=== PATIENT | female | born 1940 | race Caucasian/White ===

== ENCOUNTER 2017-09-17 18:00 | Emergency (ER) | payer OTHER ==
[~2017-09-17 18:00] MED LIST: AMLODIPINE10 MG PO; CYMBALTA60 MG PO; HYDROCHLOROTHIA1 TA2 PO; K-DUR 20MEQ TA20 MEQ PO; ZOCOR 40MG TAB40 MG PO
[2017-09-17] MEDS ORDERED: ROPINIROLE HCL1 MG PO (19:03)
[2017-09-17] MEDS ORDERED: ATORVASTATIN CA10 M1 PO (19:04)
[2017-09-17] MEDS ORDERED: DULOXETINE HCL60 MG PO (19:04)
[2017-09-17] MEDS ORDERED: POTASSIUM CHLO20 ME2 PO (19:04)
--- NOTE | 2017-09-17 19:04 | ED GENERAL ADULT ---
History of Present Illness General Chief Complaint: General Adult Stated Complaint: ?VASCULAR ISSUES PER PT Source: patient, family, old records Exam Limitations: no limitations Vital Signs & Intake/Output Vital Signs & Intake/Output Vital Signs Date Time Temp Pulse Resp B/P B/P Pulse O2 O2 Flow FiO2 Mean Ox Delivery Rate 09/172 97.0 55 16 190/70 97 Room Air 09/17 1825 98.5 62 20 174/76 94 Room Air Room Air Allergies Coded Allergies: Iodinated Contrast- Oral and IV Dye (Severe, RASH 09/17/17) diazepam (Severe, ANGIODEMA 09/17/17) meperidine (Severe, ANGIODEMA 09/17/17) Reconcile Medications Amlodipine Besylate 10 MG TABLET 1 TAB PO DAILY BP (Reported) Atorvastatin Calcium 10 MG TABLET 1 TAB PO DAILY CHOLESTEROL (Reported) Cholecalciferol (Vitamin D3) (Vitamin D) 1,000 UNIT TABLET 1 TAB PO DAILY SUPPLEMENT (Reported) Duloxetine HCl 60 MG CAPSULE.DR 1 CAP PO DAILY NERVE PAIN (Reported) Multiple Vitamin (Multivitamins) 1 EACH TABLET 1 TAB PO DAILY SUPPLEMENT ( Reported) Potassium Chloride 20 MEQ TAB.ER.PRT 1 TAB PO BID SUPPLEMENT (Reported) Ropinirole HCl 1 MG TABLET 1 TAB PO QPM RLS (Reported) Ubidecarenone (Co Q-10) (Unknown Strength) CAPSULE (Unknown Dose) PO DAILY SUPPLEMENT (Reported) Vitamin B Complex (Super B-50 Complex) 1 EACH CAPSULE 1 CAP PO DAILY SUPPLEMENT (Reported) Triage Note: PT TO TRIAGE WITH PAIN, REDDNESS AND BLISTERS TO RIGHT TOES. PT ALSO HAS CYANOSIS TO 2ND THE 3RD TOES. PT HAS A HX OF ARTRIAL OCCULSIONS WITH MULITPLE BYPASSESS AND FAILED BYPASSES Triage Nurses Notes Reviewed? yes Onset: Abrupt Duration: week(s): (1), changing over time, continues in ED, getting worse Timing: recent history Injury Environment: home Severity: moderate, severe Severity Numbers: 8 No Modifying Factors: none LMP (ages 10-50): post menopausal, unknown : No Patient currently breastfeeds: No HPI: 68-year-old female past medical history of hypertension, hyperlipidemia, peripheral vascular disease presents for evaluation of pain skin discoloration in her right foot. Patient states that she has had multiple bypass vascular surgery and angioplasties on the right lower extremity. She is scheduled to have another bypass on the ninth of this month however she reports she started noticing worsening pain and a purple discoloration and breakdown of her skin in her toes on the right foot. This is been gradually worsening over the past week. She called her vascular surgeon and was told to come in for evaluation. Patient denies any fever numbness tingling chest pain shortness of breath. No discharge. Symptoms are worse in the first 3 toes and dorsum of the foot. She is not anticoagulated but does take aspirin. (Carlos Mejía) Past History Travel History Traveled to [place] past 21 day No Medical History Any Pertinent Medical History? 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 No (Carlos Mejía) Review of Systems Review of Systems Constitutional: Reports: no symptoms. EENTM: Reports: no symptoms. Respiratory: Reports: no symptoms. Cardiovascular: Reports: no symptoms. GI: Reports: no symptoms. Genitourinary: Reports: no symptoms. Musculoskeletal: Reports: joint pain. Skin: Reports: change in skin color. Neurological/Psychological: Reports: no symptoms. Hematologic/Endocrine: Reports: no symptoms. Immunologic/Allergic: Reports: no symptoms. All Other Systems: Reviewed and Negative (Carlos Mejía) Physical Exam Physical Exam General Appearance: well developed/nourished, no apparent distress, alert, awake , thin Head: atraumatic, normal appearance Eyes: Bilateral: normal appearance, PERRL, EOMI. Ears, Nose, Throat: hearing grossly normal Neck: normal inspection, supple, full range of motion Respiratory: normal breath sounds, chest non-tender, no respiratory distress, lungs clear Cardiovascular: regular rate/rhythm, normal peripheral pulses Peripheral Pulses: 2+ radial (R), 2+ radial (L) Gastrointestinal: soft, non-tender Back: normal inspection, normal range of motion, no vertebral tenderness Extremities: normal range of motion, no edema, rt foot: There is a light purple discoloration of the skin of the 1st-3rd distal aspect of the toes.this area is tender to palpation there is some peeling of the skin of the toes. no erythema. the foot is cool to touch compared to the left. full rom intact. sensory supply intact. dp and pt pulses are not palpable. i was able to locate them by doppler Neurologic/Psych: no motor/sensory deficits, awake, alert, oriented x 3, normal gait Skin: intact, normal color, warm/dry Lymphatic: no anterior cervical gloria Core Measures ACS in differential dx? No CVA/TIA Diagnosis: No Sepsis Present: No Sepsis Focused Exam Completed? No (Yuniel HERRERA,Carlos) Progress Differential Diagnoses I considered the following diagnoses in my evaluation of the patient: [pvd, occulisuive crisis, osteomyelitis, cellulitis, venous stasis dermatitis] Plan of Care: Orders Procedure Date/time Status BLOOD CULTURE 09/18 1831 Active TROPONIN LEVEL 09/18 1831 Complete LACTIC ACID 09/17 183 Complete HIGH SENSITIVITY CRP 09/17 183 Complete WESTERGREN SED RATE 09/17 183 Complete COMPREHENSIVE METABOLIC PANEL 09/17 183 Complete CBC WITHOUT DIFFERENTIAL 09/18 1831 Complete EKG 09/18 1831 Active Laboratory Tests 09/17/172131: Lactic Acid Cancelled 09/17/172048: Anion Gap 11, Estimated GFR > 60, BUN/Creatinine Ratio 24.3, Glucose 93, Lactic Acid 1.2, Calcium 10.2, Total Bilirubin 0.7, AST 34, ALT 25, Alkaline Phosphatase 69, Troponin I < 0.01, C-React Prot High Sens 2.4, Total Protein 8.2 , Albumin 4.6, Globulin 3.6, Albumin/Globulin Ratio 1.3 09/17/171923: CBC w Diff NO MAN DIFF REQ, RBC 4.71, MCV 89.2, MCH 30.0, MCHC 33.7, RDW 13.7, MPV 9.8, Gran % 60.1, Lymphocytes % 26.0, Monocytes % 9.8 H, Eosinophils % 3.4, Basophils % 0.7, Absolute Granulocytes 4.1, Absolute Lymphocytes 1.8, Absolute Monocytes 0.7 H, Absolute Eosinophils 0.2, Absolute Basophils 0, ESR Westergren 7 09/17/171831: Urine Color Cancelled, Urine Clarity Cancelled, Urine pH Cancelled, Ur Specific [place] Cancelled, Urine Protein Cancelled, Urine Ketones Cancelled, Urine Nitrite Cancelled, Urine Bilirubin Cancelled, Urine Urobilinogen Cancelled, Ur Leukocyte Esterase Cancelled, Ur Microscopic Cancelled, Urine Hemoglobin Cancelled, Urine Glucose Cancelled Microbiology 09/17 2048 BLOOD: Blood Culture - RES 09/18 1831 BLOOD: Blood Culture - CAN Cancelled: NOT REC'D IN LAB - PATIENT DEPARTED ER Patient seen and evaluated. She is reporting pain and discoloration in the distal aspect of her right foot and toes. She has a history of peripheral vascular disease she supposed to have a bypass on the ninth of this month. Pulses were not able to be located by Doppler. Patient does have pain to palpation in the toes and with walking however this is well controlled with Percocet. Spoke with Dr. Rios from vascular he recommended having the surgical PA come down to evaluate the patient. After evaluation surgical PA and vascular surgery felt that there was no signs of an occlusive crisis. They recommended continuing aspirin and patient was started on Xarelto. She will follow up with vascular tomorrow at 9 AM. Adhesions as directed. Discussed return precautions in detail. Case discussed with Dr. casas he agrees. Initial ED EKG: sinus rhythm rate 51, probable left atrial abn, probable lvh (Carlos Mejía) Departure Departure Disposition: HOME OR SELF CARE Condition: Stable Clinical Impression Primary Impression: Peripheral vascular disease Referrals: Kwong ,Reinier Forman (PCP/Family) Additional Instructions: Follow-up tomorrow at 9 AM with YOUr vascular surgeon. Monitor symptoms return with any concerns. Departure Forms: Customer Survey General Discharge Information (Carlos Mejía) PA/VERSE WRITER Co-Sign Statement Statement: ED Attending supervision documentation- [] I saw and evaluated the patient. I have also reviewed all the pertinent lab results and diagnostic results. I agree with the findings and the plan of care as documented in the PA's/VERSE WRITER's documentation. [x] I have reviewed the ED Record and agree with the PA's/VERSE WRITER's documentation. [] Additions or exceptions (if any) to the PAs/VERSE WRITER's note and plan are summarized below: [] (Maggi PFEIFFER,Jose Torres) Critical Care Note Critical Care Note Critical Care Time: non-applicable (Carlos Mejía)
[2017-09-17] MEDS ORDERED: AMLODIPINE BESY10 M1 PO (19:06)
[2017-09-17] MEDS ORDERED: CO Q-10300 MG PO (19:06)
[2017-09-17] MEDS ORDERED: MULTIVITAMINS1 EAC9 PO (19:06)
[2017-09-17] MEDS ORDERED: SUPER B-50 COM1 EACH PO (19:07)
[2017-09-17] MEDS ORDERED: VITAMIN D1000 UNIT PO (19:07)
[2017-09-17 19:31] LABS: ABSOLUTE BASOPHIL COUNT 0 /CUMM (0.0-0.2); ABSOLUTE EOSINOPHIL COUNT 0.2 /CUMM (0.0-0.7); ABSOLUTE GRANULOCYTE CT 4.1 /CUMM (1.4-6.5); ABSOLUTE LYMPH COUNT 1.8 /CUMM (1.2-3.4); ABSOLUTE MONOCYTE COUNT 0.7 /CUMM (0.10-0.60); BASOPHIL % 0.7 % (0.0-2.0); EOSINOPHIL % 3.4 % (0-5); GRANULOCYTE % 60.1 % (42.2-75.2); MEAN CORPUSCULAR HGB CONC 33.7 G/DL (33.0-37.0); MEAN CORPUSCULAR VOLUME 89.2 FL (81.0-99.0); MEAN PLATELET VOLUME 9.8 FL (7.4-10.4); PLATELET COUNT 193 /CUMM (130-400); RBC DISTRIBUTION WIDTH 13.7 % (11.5-14.5); RED BLOOD CELL CT 4.71 /CUMM (4.20-5.40); WHITE BLOOD CELL COUNT 6.9 /CUMM (4.8-10.8)
[2017-09-17 21:52] VITALS: BP 190/70
[2017-09-22] MEDS ORDERED: ST. JOSEPH ASPI81 M1 PO (10:05)
[2017-09-22] MEDS ORDERED: PERCOCET 5-3251 EACH PO (10:06)
== END 2017-09-17 22:12 ==
LOC: ERH 18:00
PROVIDERS: Physician Assistant Medical
DX: I73.9 Peripheral vascular disease, unspecified (principal)
CPT/HCPCS: 87040; 93005; 93010; J3490

== ENCOUNTER 2017-09-25 01:43 | Inpatient (IN) | payer OTHER ==
[~2017-09-25] VITALS: Ht 162.6 cm; Wt 44.9 kg
[~2017-09-25 01:43] MED LIST changes: +AMLODIPINE BESY10 M1 PO; +ATORVASTATIN CA10 M1 PO; +CO Q-10300 MG PO; +DULOXETINE HCL60 MG PO; +MULTIVITAMINS1 EAC9 PO; +PERCOCET 5-3251 EACH PO; +POTASSIUM CHLO20 ME2 PO; +ROPINIROLE HCL1 MG PO; +ST. JOSEPH ASPI81 M1 PO; +SUPER B-50 COM1 EACH PO; +VITAMIN D1000 UNIT PO
--- NOTE | 2017-09-25 14:44 | Operative Report ---
Operative/Inv Procedure Report Surgery Date: 09/25/17 Name of Procedure: Right femoral to popliteal bypass with PTFE Pre-Operative Diagnosis: right leg critical limb ischemia Post-Operative Diagnosis: same Estimated Blood Loss: 50ml to 100ml Surgeon/Ethics Manager: Geovanni PFEIFFER,Dar Ethics Manager Gabriel PFEIFFER, Shalom Anesthesia: general endotracheal tube Specimens: none Complications: none Condition: stable, extubated, transferred to pacu Operative Indication: The patient is a 76-year-old active smoker with a history of a previous aorto bifemoral bypass and subsequent right fem-pop bypass with vein. The patient presented to the office with a few weeks of right leg discomfort which progressed to severe pain. She had a CTA that demonstrated an occluded right fem -pop bypass. We subsequently proceeded to perform a diagnostic angiogram to identify an appropriate target for bypass she had vein mapping but the vein in her left leg appeared to be small and the vein in the right leg had already been harvested. It appeared that her distal femoral popliteal artery was patent with runoff via the AT and peroneal artery, We therefore planned to explore the popliteal artery as a target and possibly go to tibial if it was not suitable. I explain the patient risk benefits alternatives surgery informed consent was obtained the chart given the patient had ischemic rest pain and impending tissue loss we felt that a bypass is appropriate. Operative/Procedure Note Note: The patient was brought to the operating room a time-out was done to verify the patient's name MRN and date of . Once this was verified she was placed under general anesthesia in a supine position. They placed a radial A-line and multiple large bore IVs. A Chacko catheter was also placed. Prior to proceeding with the operation we used the ultrasound to look at the left saphenous vein to see if that would be a possibility to use as a bypass conduit. However the vein appeared to be quite small and therefore we felt it would not be suitable is a for a bypass. We therefore proceeded to prep and drape the bilateral groins and right leg circumferentially in a sterile fashion. Prophylactic antibiotics were given prior to skin incision. We then marked out her previous right groin and below the knee popliteal incision using a marking pen. Dr. Rios assisted me with the entirety of the case as there was no suitable PA or resident with adequate experience to assist me. We simultaneously used a 10 blade scalpel tomake a vertical incision over the femoral artery and then the below-knee popliteal scar using a 10 blade scalpel. We then use, electrocautery to dissect down through the subcutaneous tissues. In the groin area we tied off any crossing veins or lymphatic vessels using ties. We identified a previous aortobifem limb and circumferentially dissected this free getting proximal and distal control. In the below the knee popliteal incision we incised the muscular fascia and then identified the popliteal neurovascular bundle. There was some scar tissue and the vein was adherent to the artery. We then circumferentially dissected free the popliteal artery as proximally as possible and continued the dissection distally to where the artery branched into the tibial peroneal trunk and the AT artery. We then gained control of these 2 vessels with vessel loops and got proximal control of the popliteal artery. At this time we brought a 6 mm probe patent graft into the field using a tunneler we tunneled subcutaneously for the below the popliteal incision all the way to the groin incision. We then passed the graft through the tunneler and took care to make sure that it was not twisted. At this time the patient was fully heparinized. Once the heparin had 3 minutes to circulate we proceeded to clamp proximally and distally. We used an 11 blade scalpel to perform arteriotomies in the limb of the aortibifem bypass and the below the knee popliteal artery. The arteriotomies were extended with Oneill scissors. In the popliteal artery we did encounter a plaque extending to the tibial peroneal trunk and this was endarterectomized and removed. At this time there was good back bleeding from both the AT artery and the tibial peroneal trunk. We were satisfied that this would be an appropriate target for the bypass. At this time we simultaneously perform the proximal and distal anastomosis using 2 x 5-0 Prolenes running in running continuous fashion for the proximal anastomosis and we used 2x 6-0 Prolenes in the usual running continuous fashion for the distal anastomosis. Prior to placing the final stitches in the popliteal anastamosis we flushed the bypass and back bed and flushed the anastamosis. The final sitches were then palced and tied. We then removed the clamps and there was some additional areas that were bleeding which required some additional Prolene stitches. At this time there was a very good signal in the distal bypass and the outflow vessels. We then proceede to reverse the patient with protamine and used Gelfoam and a few additional stitches in order to get hemostasis. Once we had good hemostasis we then proceeded to irrigate both the proximal and distal wound with saline.We then proceeded to close the deep layers using 2-0 Prolene the subcutaneous layers using 3-0 Vicryl and closed the skin with a with skin zak. At this time a pravena wound Vac was placed over the groin incision. And a Telfa and Tegaderm was placed in the below-knee incision. The patient was extubated and transfered back to the pacu in stable condition having experienced no untoward events.
[2017-09-25 16:00] VITALS: BP 110/58
--- NOTE | 2017-09-25 16:28 | PN- Vascular Surgery ---
Subjective Subjective: POST OP CHECK s/p right redo femoral to below knee popliteal bypass with dacron graft. Resting flat in bed. Daughter at bedside. No N/V, F/C, CP/SOB. Voiding via jackson catheter. Yet to have clear liquids, hungry for food. Objective Vital Signs and I&Os Vital Signs Date Time Temp Pulse Resp B/P B/P Pulse O2 O2 Flow FiO2 Mean Ox Delivery Rate 09/25 1549 99 Nasal 3.0L Cannula Intake & Output 09/25 1600 09/25 0000 09/24 1600 09/24 0000 Intake Total Output Total Balance Patient 99 lb 15.99 oz Weight Weight Reported by Patient Measurement Method Physical Exam: Gen: AAOx3 in NAD Cor: S1+S2+ Bradycardic. Lungs: CTA yeni Abd: soft, NT, ND, +Bs x4 Ext: right groin prevena functioning, no air leak present, holding suction. No surrounding ecchymosis to suggest hematoma. Groin non tender to palpation. Right popliteal incisional dressing C/D/I. palpable DP pulse. Biphasic PT signal. Foot hyperemic, tender on 3rd digit. Dorsiflexion/plantar flexion 5/5. Sensation grossly intact. Current Medications: Current Medications Sig/Rocael Start time Last Medication Dose Route Stop Time Status Admin Amlodipine Besylate 10 MG DAILY 09/26 1000 AC PO Aspirin Buffered 81 MG DAILY 09/26 1000 AC PO Atorvastatin Calcium 10 MG 1700 09/26 1700 AC PO Cefazolin Sodium 2 GM Q8H 09/25 1430 AC N/A 1 UNIT IV 09/25 2258 Cholecalciferol 1,000 IU DAILY 09/26 1000 AC PO Docusate Sodium 100 MG BID 09/25 2200 AC PO Duloxetine HCl 60 MG DAILY 09/26 1000 AC PO Fentanyl Citrate 200 MCG .STK-MED ONE 09/25 701 DC IM 09/25 702 Heparin Sodium 5,000 UNIT Q8 09/25 1623 UNVr (Porcine) SC Midazolam HCl 2 MG .STK-MED ONE 09/25 701 DC IM 09/25 702 Morphine Sulfate 2 MG Q4P PRN 09/25 1545 AC IV Multivitamins 1 TAB DAILY 09/26 1000 AC Therapeutic PO Oxycodone HCl 5 MG Q4 HRS NEEDED PRN 09/25 1545 AC PO Oxycodone HCl 10 MG Q4 HRS NEEDED PRN 09/25 1545 AC PO Polyethylene Glycol 17 GM DAILY 09/26 1000 AC PO Potassium Chloride 20 MEQ BID 09/25 2199 AC PO Ropinirole HCl 1 MG QPM 09/25 2199 AC PO Sodium Chloride 1,000 ML Q13H 09/25 1545 AC IV Thrombin 5,000 UNITS .STK-MED ONE 09/25 1306 [facility] 09/25 1307 Assessment/Plan Assessment/Plan A: s/p right redo femoral to below knee popliteal bypass with graft; AVSS Plan: q1h neurovascular checks Regular diet. Bedrest overnight. PT eval in am. No chair sitting tomorrow (POD #1) to avoid bending at knee joint. Pain control to continue. D/C minal in am. F/U am labwork. Continue home medications. ASA to continue. Likely will initiate heparin gtt tomorrow pending discussion with Dr. Galarza. Core Measures Venous Thromboembolism VTE Risk Factors Surgery No Mechanical VTE Prophylaxis d/t N/A MechProphylax Ordered No VTE Pharm Prophylaxis d/t NA PharmProphylax ordered
[2017-09-26] VITALS: BP 124/60
[2017-09-26 03:52] LABS: ABSOLUTE BASOPHIL COUNT 0 /CUMM (0.0-0.2); ABSOLUTE EOSINOPHIL COUNT 0 /CUMM (0.0-0.7); ABSOLUTE GRANULOCYTE CT 7.1 /CUMM (1.4-6.5); ABSOLUTE LYMPH COUNT 1.8 /CUMM (1.2-3.4); ABSOLUTE MONOCYTE COUNT 1.3 /CUMM (0.10-0.60); BASOPHIL % 0.2 % (0.0-2.0); EOSINOPHIL % 0.1 % (0-5); MEAN CORPUSCULAR HGB 30.6 PG (27.0-31.0); MEAN CORPUSCULAR HGB CONC 34.3 G/DL (33.0-37.0); MEAN CORPUSCULAR VOLUME 89.3 FL (81.0-99.0); MEAN PLATELET VOLUME 9.8 FL (7.4-10.4); PLATELET COUNT 164 /CUMM (130-400); RBC DISTRIBUTION WIDTH 13.6 % (11.5-14.5); RED BLOOD CELL CT 3.24 /CUMM (4.20-5.40); WHITE BLOOD CELL COUNT 10.3 /CUMM (4.8-10.8)
[2017-09-26 03:59] LABS: PTT 35 SEC (25-37)
--- NOTE | 2017-09-26 06:44 | PN- Vascular Surgery ---
Subjective Subjective: feeling ok, some pain at incisions and in r foot overnight. provena beeping overnihgt- now holding good suction. no cp/sob. good uo. no oob Objective Vital Signs and I&Os Vital Signs Date Time Temp Pulse Resp B/P B/P Pulse O2 O2 Flow FiO2 Mean Ox Delivery Rate 09/26 0000 98.8 60 20 124/60 96 Room Air Room Air 09/25 2000 100 Nasal 2.0L Cannula 09/25 1600 97.6 59 25 110/58 100 Nasal 2.0L Cannula 09/25 1549 99 Nasal 3.0L Cannula Intake & Output 09/26 0809/26 0000 09/25 1600 09/25 0800 09/25 0000 09/24 1600 Intake Total 656 1090 Output Total 450 160 Balance 206 930 Intake, IV 576 490 Intake, Oral 80 600 Number 0 0 Bowel Movements Output, Urine 450 160 Patient 99 lb 15.99 oz Weight Weight Reported by Patient Measurement Method Physical Exam: gen- nad card-s1s2 rrr pulm-ctab abd- soft nt ext- r groin w provena vac in place to good suction. rle incisions dressed- cdi , ttp at incisions. palpable r dp. dopperable left dp and pt. alp on lle, calves soft bl. Current Medications: Current Medications Sig/Rocael Start time Last Medication Dose Route Stop Time Status Admin Amlodipine Besylate 10 MG DAILY 09/26 1000 AC PO Aspirin 81 MG DAILY 09/25 1645 AC 09/25 PO 1840 Aspirin Buffered 81 MG DAILY 09/26 1000 CAN PO Atorvastatin Calcium 10 MG 1700 09/26 1700 AC PO Cefazolin Sodium 2 GM Q8H 09/25 1430 DC 09/25 N/A 1 UNIT IV 09/25 2259 2208 Cholecalciferol 1,000 IU DAILY 09/26 1000 AC PO Dextrose 1 SYR ONE ONE 09/26 0400 CAN IV 09/26 0401 Docusate Sodium 100 MG BID 09/25 2200 AC 09/25 PO 2208 Duloxetine HCl 60 MG DAILY 09/26 1000 AC PO Fentanyl Citrate 200 MCG .STK-MED ONE 09/25 701 DC IM 09/25 07 Heparin Sodium 5,000 UNIT Q8 09/25 1623 AC 09/26 (Porcine) SC 0553 Midazolam HCl 2 MG .STK-MED ONE 09/25 701 DC IM 09/25 702 Morphine Sulfate 2 MG Q4P PRN 09/25 1545 AC 09/26 IV 0406 Multivitamins 1 TAB DAILY 09/26 1000 AC Therapeutic PO Oxycodone HCl 5 MG Q4 HRS NEEDED PRN 09/25 154 AC 09/26 PO 0008 Oxycodone HCl 10 MG Q4 HRS NEEDED PRN 09/25 1545 AC PO Polyethylene Glycol 17 GM DAILY 09/26 1000 AC PO Potassium Chloride 20 MEQ BID 09/25 2199 AC 09/25 PO 2208 Ropinirole HCl 1 MG QPM 09/25 2199 AC 09/25 PO 1840 Sodium Chloride 1,000 ML Q13H 09/25 154 DC 09/26 IV 0407 Thrombin 5,000 UNITS .STK-MED ONE 09/25 130 [facility] 09/25 1307 Results Last 48 Hours of Labs: Laboratory Tests 09/26 0330 Chemistry Sodium (137 - 145 mmol/L) 138 Potassium (3.5 - 5.1 mmol/L) 3.4 L Chloride (98 - 107 mmol/L) 105 Carbon Dioxide (22 - 30 mmol/L) 25 Anion Gap (5 - 16) 8 BUN (7 - 17 mg/dL) 19 H Creatinine (0.5 - 1.0 mg/dL) 0.9 Estimated GFR (>60 ml/min) > 60 BUN/Creatinine Ratio (7 - 25 %) 21.1 Phosphorus (2.5 - 4.5 mg/dL) 3.7 Magnesium (1.6 - 2.3 mg/dL) 1.7 Coagulation APTT (25 - 37 SEC) 35 Hematology CBC w Diff NO MAN DIFF REQ WBC (4.8 - 10.8 /CUMM) 10.3 RBC (4.20 - 5.40 /CUMM) 3.24 L Hgb (12.0 - 16.0 G/DL) 9.9 L Hct (37 - 47 %) 29.0 L MCV (81.0 - 99.0 FL) 89.3 MCH (27.0 - 31.0 PG) 30.6 MCHC (33.0 - 37.0 G/DL) 34.3 RDW (11.5 - 14.5 %) 13.6 Plt Count (130 - 400 /CUMM) 164 MPV (7.4 - 10.4 FL) 9.8 Gran % (42.2 - 75.2 %) 69.0 Lymphocytes % (20.5 - 51.1 %) 17.8 L Monocytes % (1.7 - 9.3 %) 12.9 H Eosinophils % (0 - 5 %) 0.1 Basophils % (0.0 - 2.0 %) 0.2 Absolute Granulocytes (1.4 - 6.5 /CUMM) 7.1 H Absolute Lymphocytes (1.2 - 3.4 /CUMM) 1.8 Absolute Monocytes (0.10 - 0.60 /CUMM) 1.3 H Absolute Eosinophils (0.0 - 0.7 /CUMM) 0 Absolute Basophils (0.0 - 0.2 /CUMM) 0 Assessment/Plan Assessment/Plan A- POD0 sp redo R fem-pop bypass w graft, stable with palpable right dp and warm foot with appropriate postoperative pain, with borderline hypoK and hypoMg, otherwise stable. P- ok for oob this am. No flexion of R knee (sitting, etc) dc a-line dc jackson replete K, Mg prn pain meds diet as tolerated asa daily ?hep gtt today ?out of icu today will dw Dr. Galarza Core Measures Venous Thromboembolism VTE Risk Factors Surgery No Mechanical VTE Prophylaxis d/t N/A MechProphylax Ordered No VTE Pharm Prophylaxis d/t NA PharmProphylax ordered
[2017-09-26 08:00] VITALS: BP 138/52
[2017-09-26 16:00] VITALS: BP 130/62
--- NOTE | 2017-09-26 17:09 | PN- Vascular Surgery ---
Surgical Brief Attending Note Brief Attending Note: VASCULAR ATTENDING NOTE: Pt. seen and examined POD #1 s/p fem.-pop. bypass. She is complaining of some lower extremity calf pain but states her foot feels improved. She denies any rest pain at this time. PE: Afebrile vital signs stable Ext: Right foot is warm, no evidence of ischemia, it is well perfused. Patient does have pain on palpation of the calf. A/P Continue medical care Continue heparin at the current rate Would follow CPKs due to calf tenderness
[2017-09-26 23:00] VITALS: BP 130/54
[2017-09-27 06:17] LABS: ABSOLUTE BASOPHIL COUNT 0 /CUMM (0.0-0.2); ABSOLUTE EOSINOPHIL COUNT 0 /CUMM (0.0-0.7); ABSOLUTE GRANULOCYTE CT 9.8 /CUMM (1.4-6.5); ABSOLUTE LYMPH COUNT 1.7 /CUMM (1.2-3.4); ABSOLUTE MONOCYTE COUNT 1.8 /CUMM (0.10-0.60); BASOPHIL % 0.2 % (0.0-2.0); EOSINOPHIL % 0.3 % (0-5); GRANULOCYTE % 73.7 % (42.2-75.2); HEMATOCRIT 32.2 % (37-47); MEAN CORPUSCULAR HGB 29.6 PG (27.0-31.0); MEAN CORPUSCULAR HGB CONC 32.9 G/DL (33.0-37.0); MEAN PLATELET VOLUME 10.6 FL (7.4-10.4); PLATELET COUNT 153 /CUMM (130-400); RBC DISTRIBUTION WIDTH 13.5 % (11.5-14.5); RED BLOOD CELL CT 3.58 /CUMM (4.20-5.40); WHITE BLOOD CELL COUNT 13.4 /CUMM (4.8-10.8)
--- NOTE | 2017-09-27 07:56 | PN- Vascular Surgery ---
Dwayne Conde 09/27/17 0746: Subjective Subjective: Reports pain in her right calf. Yesterday, patient was straightcathed 350 and then voided on her own 150 cc overnight. She offers no other complaints. Objective Vital Signs and I&Os Vital Signs Date Time Temp Pulse Resp B/P B/P Pulse O2 O2 Flow FiO2 Mean Ox Delivery Rate 09/27 0000 96 Room Air 09/26 2300 97.7 78 24 130/54 96 Room Air 09/26 1600 99.0 67 20 130/62 97 Room Air 09/26 0928 63 138/52 09/26 0800 98.7 60 28 138/52 98 Room Air 09/26 0800 98 Room Air Intake & Output 09/27 0809/27 0000 09/26 1600 09/26 0800 09/26 0000 09/25 1600 Intake Total 174 328 006 879 2956 Output Total 150 350 0 450 160 Balance 24 -22 410 206 930 Intake, IV 74 128 170 576 490 Intake, Oral 100 200 240 80 600 Number 0 0 0 0 0 Bowel Movements Output, Urine 150 350 0 450 160 Patient 99 lb 15.99 oz Weight Weight Reported by Patient Measurement Method Physical Exam: Gen - nad Cardiac -S1S2 rrr Lungs -CTAB Abd- soft, nt/nd Ext- R groin w/ provena vac in place to good suction, RLE dressing with scant sanguineous drainage in midline, mild edema, appropriately tender alexandr- incisionally, palpable right dp/pt, alp on LLE Current Medications: Current Medications Sig/Rocael Start time Last Medication Dose Route Stop Time Status Admin Amlodipine Besylate 10 MG DAILY 09/26 1000 AC 09/26 PO 0928 Aspirin 81 MG DAILY 09/25 1645 AC 09/26 PO 09 Atorvastatin Calcium 10 MG 1700 09/26 1700 AC 09/26 PO 1619 Cholecalciferol 1,000 IU DAILY 09/26 1000 AC 09/26 PO 0928 Cyclobenzaprine HCl 5 MG TIDPRN 09/26 1800 AC 09/26 PO 1905 Docusate Sodium 100 MG BID 09/25 2200 AC 09/26 PO 223 Duloxetine HCl 60 MG DAILY 09/26 1000 AC 09/26 PO 0928 Heparin Sodium 25,000 UNIT Q24H 09/26 0900 AC 09/26 (Porcine) IV 0924 Sodium Chloride 500 ML Heparin Sodium 25,000 UNIT Q24H 09/26 0830 DC (Porcine) IV Sodium Chloride 500 ML Heparin Sodium 5,000 UNIT Q8 09/25 1623 DC 09/26 (Porcine) SC 0553 Magnesium Sulfate 1 GM ONCE ONE 09/26 0645 DC 09/26 Dextrose/Water 100 ML IV 09/26 1044 0759 Morphine Sulfate 2 MG Q4P PRN 09/25 1545 AC 09/26 IV 2040 Multivitamins 1 TAB DAILY 09/26 1000 AC 09/26 Therapeutic PO 0928 Oxycodone HCl 5 MG Q4 HRS NEEDED PRN 09/25 1545 AC 09/26 PO 1619 Oxycodone HCl 10 MG Q4 HRS NEEDED PRN 09/25 1545 AC 09/27 PO 0557 Polyethylene Glycol 17 GM DAILY 09/26 1000 AC 09/26 PO 0928 Potassium Chloride 20 MEQ BID 09/25 2200 AC 09/26 PO 2234 Ropinirole HCl 1 MG QPM 09/25 2200 AC 09/26 PO 2235 Sodium Chloride 500 ML BOLUS ONE 09/26 1530 DC 09/26 IV 09/26 1629 1618 Sodium Chloride 1,000 ML Q13H 09/26 1500 DC 09/26 IV 1500 Results Last 48 Hours of Labs: Laboratory Tests 09/27 09/26 0534 1050 Chemistry Sodium (137 - 145 mmol/L) 133 L Potassium (3.5 - 5.1 mmol/L) 3.4 L Chloride (98 - 107 mmol/L) 101 Carbon Dioxide (22 - 30 mmol/L) 26 Anion Gap (5 - 16) 5 BUN (7 - 17 mg/dL) 12 Creatinine (0.5 - 1.0 mg/dL) 0.6 Estimated GFR (>60 ml/min) > 60 BUN/Creatinine Ratio (7 - 25 %) 20.0 Phosphorus (2.5 - 4.5 mg/dL) 2.5 Magnesium (1.6 - 2.3 mg/dL) 1.6 Creatine Kinase (30 - 135 U/L) Pending 134 Hematology CBC w Diff NO MAN DIFF REQ WBC (4.8 - 10.8 /CUMM) 13.4 H RBC (4.20 - 5.40 /CUMM) 3.58 L Hgb (12.0 - 16.0 G/DL) 10.6 L Hct (37 - 47 %) 32.2 L MCV (81.0 - 99.0 FL) 90.0 MCH (27.0 - 31.0 PG) 29.6 MCHC (33.0 - 37.0 G/DL) 32.9 L RDW (11.5 - 14.5 %) 13.5 Plt Count (130 - 400 /CUMM) 153 MPV (7.4 - 10.4 FL) 10.6 H Gran % (42.2 - 75.2 %) 73.7 Lymphocytes % (20.5 - 51.1 %) 12.4 L Monocytes % (1.7 - 9.3 %) 13.4 H Eosinophils % (0 - 5 %) 0.3 Basophils % (0.0 - 2.0 %) 0.2 Absolute Granulocytes (1.4 - 6.5 /CUMM) 9.8 H Absolute Lymphocytes (1.2 - 3.4 /CUMM) 1.7 Absolute Monocytes (0.10 - 0.60 /CUMM) 1.8 H Absolute Eosinophils (0.0 - 0.7 /CUMM) 0 Absolute Basophils (0.0 - 0.2 /CUMM) 0 09/26 0330 Chemistry Sodium (137 - 145 mmol/L) 138 Potassium (3.5 - 5.1 mmol/L) 3.4 L Chloride (98 - 107 mmol/L) 105 Carbon Dioxide (22 - 30 mmol/L) 25 Anion Gap (5 - 16) 8 BUN (7 - 17 mg/dL) 19 H Creatinine (0.5 - 1.0 mg/dL) 0.9 Estimated GFR (>60 ml/min) > 60 BUN/Creatinine Ratio (7 - 25 %) 21.1 Phosphorus (2.5 - 4.5 mg/dL) 3.7 Magnesium (1.6 - 2.3 mg/dL) 1.7 Creatine Kinase (30 - 135 U/L) 140 H Coagulation APTT (25 - 37 SEC) 35 Hematology CBC w Diff NO MAN DIFF REQ WBC (4.8 - 10.8 /CUMM) 10.3 RBC (4.20 - 5.40 /CUMM) 3.24 L Hgb (12.0 - 16.0 G/DL) 9.9 L Hct (37 - 47 %) 29.0 L MCV (81.0 - 99.0 FL) 89.3 MCH (27.0 - 31.0 PG) 30.6 MCHC (33.0 - 37.0 G/DL) 34.3 RDW (11.5 - 14.5 %) 13.6 Plt Count (130 - 400 /CUMM) 164 MPV (7.4 - 10.4 FL) 9.8 Gran % (42.2 - 75.2 %) 69.0 Lymphocytes % (20.5 - 51.1 %) 17.8 L Monocytes % (1.7 - 9.3 %) 12.9 H Eosinophils % (0 - 5 %) 0.1 Basophils % (0.0 - 2.0 %) 0.2 Absolute Granulocytes (1.4 - 6.5 /CUMM) 7.1 H Absolute Lymphocytes (1.2 - 3.4 /CUMM) 1.8 Absolute Monocytes (0.10 - 0.60 /CUMM) 1.3 H Absolute Eosinophils (0.0 - 0.7 /CUMM) 0 Absolute Basophils (0.0 - 0.2 /CUMM) 0 Assessment/Plan Assessment/Plan 76 F POD 2 s/p redo R fem-pop bypass w/ graft, stable with palpable right dp Transfer out of ICU Pain meds prn Asa daily Cont K repletion Cont hep gtt CPK normalized Cardiac diet Monitor I&Os Encourge oob ambulation - no flexion of R knee Will dw Dr. Galarza Core Measures Venous Thromboembolism VTE Risk Factors Surgery No Mechanical VTE Prophylaxis d/t N/A MechProphylax Ordered No VTE Pharm Prophylaxis d/t NA PharmProphylax ordered Dar Galarza MD 09/27/17 1102: Attending MD Review Statement Attending Statement Attending Statement: examined this patient, discuss w/resident/PA/[employer] Attending Assessment/Plan: pt seen and examined. foot wwp. pt no longer complaining of rest pain and color significantly improved. Very strong dp/pt signals. labs reviewed. vss. Today pt oob/ ambulate. can sit in chair tomorrow. therapeutic heparin gtt. will plan to dc on xarelto . wound vac to stay in place 1 week total.
[2017-09-27 08:00] VITALS: BP 134/70
[2017-09-27 16:00] VITALS: BP 138/64
[2017-09-27 23:24] VITALS: BP 152/68
[2017-09-28 08:00] VITALS: BP 150/70
--- NOTE | 2017-09-28 08:06 | PN- Vascular Surgery ---
Subjective Subjective: Patient states she feels fine. She reports muscle spasms in her legs are controlled with valium. She states she has not had a BM since surgery and is requesting a fleet enema. She offers no other complaints. Objective Vital Signs and I&Os Vital Signs Date Time Temp Pulse Resp B/P B/P Pulse O2 O2 Flow FiO2 Mean Ox Delivery Rate 09/27 2324 99.0 71 16 152/68 95 Room Air Room Air 09/27 1600 98.2 79 20 138/64 94 Room Air 09/27 1342 Room Air Room Air 09/27 1336 Room Air Room Air 09/27 0924 74 134/70 09/27 0800 99.3 74 20 134/70 93 Room Air Intake & Output 09/28 0809/28 0000 09/27 1600 09/27 0800 09/27 0000 09/26 1600 Intake Total 160 360 78 174 328 410 Output Total 0 450 150 350 0 Balance 160 360 -372 24 -22 410 Intake, IV 80 300 78 74 128 170 Intake, Oral 80 60 100 200 240 Number 0 0 0 0 Bowel Movements Output, Urine 0 450 150 350 0 Patient 99 lb 0.01 oz Weight Physical Exam: Gen - nad Cardiac -S1S2 rrr Lungs -CTAB Abd- soft, nt/nd Ext- R groin w/ provena vac in place to good suction, knee immoblizer in place, RLE incision closed with zak, healing well with so signs of infection, redressed with gauze and tegaderm, appropriately tender alexandr-incisionally, mild edema of right foot with dp/pt doppler signals, alp on LLE, no edema or calf tenderness Current Medications: Current Medications Sig/Rocael Start time Last Medication Dose Route Stop Time Status Admin Amlodipine Besylate 10 MG DAILY 09/26 1000 AC 09/27 PO 0924 Aspirin 81 MG DAILY 09/25 1645 AC 09/27 PO 0924 Atorvastatin Calcium 10 MG 1700 09/26 1700 AC 09/27 PO 165 Cholecalciferol 1,000 IU DAILY 09/26 1000 AC 09/27 PO 09 Cyclobenzaprine HCl 5 MG TIDPRN 09/26 1800 AC 09/27 PO 212 Docusate Sodium 100 MG BID 09/25 2200 AC 09/27 PO 2122 Duloxetine HCl 60 MG DAILY 09/26 1000 AC 09/27 PO 0924 Heparin Sodium 25,000 UNIT Q24H 09/26 09 AC 09/27 (Porcine) IV 1704 Sodium Chloride 500 ML Morphine Sulfate 2 MG Q4P PRN 09/25 1545 AC 09/26 IV 2040 Multivitamins 1 TAB DAILY 09/26 1000 AC 09/27 Therapeutic PO 0924 Oxycodone HCl 5 MG Q4 HRS NEEDED PRN 09/25 1545 AC 09/27 PO 1803 Oxycodone HCl 10 MG Q4 HRS NEEDED PRN 09/25 1545 AC 09/27 PO 0557 Polyethylene Glycol 17 GM DAILY 09/26 1000 AC 09/27 PO 0923 Potassium Chloride 20 MEQ BID 09/25 2199 AC 09/27 PO 2122 Ropinirole HCl 1 MG QPM 09/25 2199 AC 09/27 PO 2121 Results Last 48 Hours of Labs: Laboratory Tests 09/27 09/26 0534 1050 Chemistry Sodium (137 - 145 mmol/L) 133 L Potassium (3.5 - 5.1 mmol/L) 3.4 L Chloride (98 - 107 mmol/L) 101 Carbon Dioxide (22 - 30 mmol/L) 26 Anion Gap (5 - 16) 5 BUN (7 - 17 mg/dL) 12 Creatinine (0.5 - 1.0 mg/dL) 0.6 Estimated GFR (>60 ml/min) > 60 BUN/Creatinine Ratio (7 - 25 %) 20.0 Phosphorus (2.5 - 4.5 mg/dL) 2.5 Magnesium (1.6 - 2.3 mg/dL) 1.6 Creatine Kinase (30 - 135 U/L) 117 134 Hematology CBC w Diff NO MAN DIFF REQ WBC (4.8 - 10.8 /CUMM) 13.4 H RBC (4.20 - 5.40 /CUMM) 3.58 L Hgb (12.0 - 16.0 G/DL) 10.6 L Hct (37 - 47 %) 32.2 L MCV (81.0 - 99.0 FL) 90.0 MCH (27.0 - 31.0 PG) 29.6 MCHC (33.0 - 37.0 G/DL) 32.9 L RDW (11.5 - 14.5 %) 13.5 Plt Count (130 - 400 /CUMM) 153 MPV (7.4 - 10.4 FL) 10.6 H Gran % (42.2 - 75.2 %) 73.7 Lymphocytes % (20.5 - 51.1 %) 12.4 L Monocytes % (1.7 - 9.3 %) 13.4 H Eosinophils % (0 - 5 %) 0.3 Basophils % (0.0 - 2.0 %) 0.2 Absolute Granulocytes (1.4 - 6.5 /CUMM) 9.8 H Absolute Lymphocytes (1.2 - 3.4 /CUMM) 1.7 Absolute Monocytes (0.10 - 0.60 /CUMM) 1.8 H Absolute Eosinophils (0.0 - 0.7 /CUMM) 0 Absolute Basophils (0.0 - 0.2 /CUMM) 0 Assessment/Plan Assessment/Plan 76 F POD 3 s/p redo R fem-pop bypass w/ graft, on heparin gtt, stable Transfer out of ICU Pain/muscle relaxants prn Asa daily Cont hep gtt, transition to xaretlo upon d/c Provena to stay in place one week total postop Cardiac diet Ambulate with PT, oob to chair Bowel regimen on board, will add fleet enema Anticipate d/c to STR F/u labs Will d/w Dr. Galarza Core Measures Venous Thromboembolism VTE Risk Factors Surgery No Mechanical VTE Prophylaxis d/t N/A MechProphylax Ordered No VTE Pharm Prophylaxis d/t NA PharmProphylax ordered
--- NOTE | 2017-09-28 08:16 | Surgical Discharge Summary ---
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 Who Do You Live With? Family Services at Home: None What is Your Primary Language? Nepalese Review of Systems: Refer to H&P Hospital Course Course Attending Physician: Dar Galarza MD Primary Care Physician: Reinier Kwong MD Hospital Course: Patient presented for an elective right femoral to popliteal bypass with PTFE on 09/25/[address] Galarza. Patient tolerated the procedure well and was transfered to the ICU in stable condition. She remained on a heparin drip which was transitioned to xarelto prior to discharge. At the time of discharge, patient's pain was well-controlled with oral analgesics, she was tolerating a diet and neurovascular intact. She was evaluated by PT, who recommended STR. She was discharged on POD #4 after having a bowel movement, with outpatient follow up with Dr. Galarza in 2 weeks. Allergies: Coded Allergies: Iodinated Contrast- Oral and IV Dye (Severe, RASH 09/17/17) diazepam (Severe, ANGIODEMA 09/17/17) meperidine (Severe, ANGIODEMA 09/17/17) Significant Procedures: Right femoral to popliteal bypass with PTFE on 09/25/17 Disposition Summary Disposition Principal Diagnosis: Right leg critical limb ischemia Additional Diagnosis: Same s/p right femoral to popliteal bypass with Dacron graft Discharge Disposition: SNF Discharge Instructions General Discharge Information Code Status: Full Code Patient's Diet: Cardiac diet Patient's Activity: WBAT Follow-Up Instructions/Appts: Follow up in 1-[address] Galarza for postop check prevena to remain in place until monday. This can either be removed in the rehab or pt can see in the office on monday to remove. Otherwise she can follow up in 2 weeks for wound check. continue asa in addition to xarelto. Medications at Discharge Discharge Medications: Continue taking these medications: Ropinirole HCl (Ropinirole HCl) 1 MG TABLET 1 Tablet ORAL Every night Qty = 30 Comments: Last Taken: 09/29/17 Time: 9:00 PM Duloxetine HCl (Duloxetine HCl) 60 MG CAPSULE. 1 Capsule ORAL DAILY Qty = 15 Comments: Last Taken: 09/29/17 Time: 9:00 AM Atorvastatin Calcium (Atorvastatin Calcium) 10 MG TABLET 1 Tablet ORAL DAILY Qty = 30 Comments: Last Taken: 09/28/17 Time: 6:30 PM Potassium Chloride (Potassium Chloride) 20 MEQ TAB.ER.PRT 1 Tablet ORAL TWICE DAILY Qty = 60 Comments: Last Taken: 09/29/17 Time: 9:00 AM Amlodipine Besylate (Amlodipine Besylate) 10 MG TABLET 1 Tablet ORAL DAILY Qty = 90 Comments: Last Taken: 09/29/17 Time: 9:00 AM Ubidecarenone (Co Q-10) 300 MG CAPSULE 1 Capsule ORAL DAILY Qty = 30 Comments: NOT GIVEN IN HOSPITAL Multiple Vitamin (Multivitamins) 1 EACH TABLET 1 Tablet ORAL DAILY Comments: Last Taken: 09/29/17 Time: 9:00 AM Vitamin B Complex (Super B-50 Complex) 1 EACH CAPSULE 1 Capsule ORAL DAILY Comments: NOT GIVEN IN HOSPITAL Cholecalciferol (Vitamin D3) (Vitamin D) 1,000 UNIT TABLET 1 Tablet ORAL DAILY Comments: Last Taken: 09/29/17 Time: 9:00 AM Aspirin (Nobles Aspirin) 81 MG TABLET. 1 Tablet ORAL DAILY Comments: Last Taken: 09/29/17 Time: 9:00 AM Oxycodone HCl/Acetaminophen (Percocet 5-325 MG Tablet) 5 MG-325 MG TABLET 1 Tablet ORAL THREE TIMES DAILY as needed for PAIN Comments: NOT GIVEN IN HOSPTIAL Start taking the following new medications: Rivaroxaban (Xarelto) 15 MG TABLET 15 Milligram ORAL TWICE DAILY Qty = 42 No Refills Instructions: END DATE IS October AT 2100 Comments: Last Taken: 09/29/17 Time: 11:00 A, Oxycodone HCl (Oxycodone HCl) 5 MG TABLET 5 Milligram ORAL EVERY 4 HOURS NEEDED as needed for PAIN Qty = 30 No Refills Comments: Last Taken: 09/29/17 Time: 12:00 PM Rivaroxaban (Xarelto) 20 MG TABLET 1 Tablet ORAL DAILY Qty = 90 No Refills Instructions: with food Comments: PLEASE BEGIN October THIS DOSE NOT GIVEN IN HOSPITAL Copies To: Varghese PFEIFFER,Reinier Forman
[2017-09-28 08:39] LABS: ABSOLUTE BASOPHIL COUNT 0 /CUMM (0.0-0.2); ABSOLUTE EOSINOPHIL COUNT 0.1 /CUMM (0.0-0.7); ABSOLUTE GRANULOCYTE CT 7.1 /CUMM (1.4-6.5); ABSOLUTE LYMPH COUNT 1.5 /CUMM (1.2-3.4); ABSOLUTE MONOCYTE COUNT 1.6 /CUMM (0.10-0.60); BASOPHIL % 0.4 % (0.0-2.0); GRANULOCYTE % 68.8 % (42.2-75.2); MEAN CORPUSCULAR HGB 30.7 PG (27.0-31.0); MEAN CORPUSCULAR HGB CONC 34.7 G/DL (33.0-37.0); MEAN CORPUSCULAR VOLUME 88.5 FL (81.0-99.0); MEAN PLATELET VOLUME 11.3 FL (7.4-10.4); RBC DISTRIBUTION WIDTH 13.3 % (11.5-14.5); RED BLOOD CELL CT 3.07 /CUMM (4.20-5.40); WHITE BLOOD CELL COUNT 10.4 /CUMM (4.8-10.8)
[2017-09-28 08:49] LABS: HEMATOCRIT 27.2 % (37-47)
[2017-09-28 09:01] LABS: PLATELET COUNT 133 /CUMM (130-400)
[2017-09-28 16:00] VITALS: BP 128/74
[2017-09-28 22:00] VITALS: BP 156/67
[2017-09-29 06:34] VITALS: BP 139/71
--- NOTE | 2017-09-29 07:51 | PN- Vascular Surgery ---
See Addendum Subjective Subjective: POD #4 s/p right femoral to below knee popliteal bypass with dacron graft. Resting comfortably in bed. Passing flatus, no BM in 6 days. Pain controlled. Voiding spontaneously. Ambulating with PT. Objective Vital Signs and I&Os Vital Signs Date Time Temp Pulse Resp B/P B/P Pulse O2 O2 Flow FiO2 Mean Ox Delivery Rate 09/29 0634 98.3 80 20 139/71 94 Room Air 09/28 2200 99.5 80 18 156/67 97 Room Air 09/28 1600 98.9 80 20 128/74 98 Room Air Room Air 09/28 1600 96 Room Air Room Air 09/28 1152 78 160/70 09/28 0800 96 Room Air Room Air 09/28 0800 98.5 74 20 150/70 97 Room Air Room Air Intake & Output 09/29 0800 09/29 0000 09/28 1600 09/28 0800 09/28 0000 09/27 1600 Intake Total 310 10 590 160 360 78 Output Total 0 600 0 450 Balance 310 10 -10 160 360 -372 Intake, IV 70 10 90 80 300 78 Intake, Oral 240 0 500 80 60 Number 0 0 0 Bowel Movements Output, Urine 0 600 0 450 Patient 99 lb 0.01 oz Weight Physical Exam: Gen: AAOx3 in NAD Cor: S1+S2+ Lungs: CTA yeni Abd: soft, NT, ND, +BS x4 Ext: R groin prevena in place, holding suction. Graft signal noted. Biphasic DP/ PT to right foot. Hyperemia of right foot. Foot warm, sensation intact. Lower calf tenderness noted. Edema noted from digits to thigh. Current Medications: Current Medications Sig/Rocael Start time Last Medication Dose Route Stop Time Status Admin Amlodipine Besylate 10 MG DAILY 09/26 1000 AC 09/28 PO 1152 Aspirin 81 MG DAILY 09/25 1645 AC 09/28 PO 1149 Atorvastatin Calcium 10 MG 1700 09/26 1700 AC 09/28 PO 1835 Bisacodyl 20 MG ONCE ONE 09/29 0745 DC MA 09/29 0746 Cholecalciferol 1,000 IU DAILY 09/26 1000 AC 09/28 PO 1149 Cyclobenzaprine HCl 5 MG TIDPRN 09/26 1800 AC 09/27 PO 212 Docusate Sodium 100 MG BID 09/25 2199 AC 09/28 PO 2052 Duloxetine HCl 60 MG DAILY 09/26 1000 AC 09/28 PO 1149 Heparin Sodium 25,000 UNIT Q24H 09/26 0900 AC 09/28 (Porcine) IV 1157 Sodium Chloride 500 ML Magnesium Citrate 150 ML ONE ONE 09/29 0745 DC PO 09/29 0746 Morphine Sulfate 2 MG Q4P PRN 09/25 1545 AC 09/26 IV 2040 Multivitamins 1 TAB DAILY 09/26 1000 AC 09/28 Therapeutic PO 1149 Oxycodone HCl 5 MG Q4 HRS NEEDED PRN 09/25 1545 AC 09/28 PO 1149 Oxycodone HCl 10 MG Q4 HRS NEEDED PRN 09/25 1545 AC 09/29 PO 0101 Polyethylene Glycol 17 GM DAILY 09/26 1000 AC 09/28 PO 114 Potassium Chloride 20 MEQ BID 09/25 2200 AC 09/28 PO 2052 Rivaroxaban 15 MG BID 09/29 0900 UNVr PO 10/20 2100 Ropinirole HCl 1 MG QPM 09/25 2200 AC 09/28 PO 2052 Sodium Phosphate 1 UNIT ONCE ONE 09/28 0815 DC 09/28 MA 09/28 0816 1205 Results Last 48 Hours of Labs: Laboratory Tests 09/28 0810 Chemistry Sodium (137 - 145 mmol/L) 131 L Potassium (3.5 - 5.1 mmol/L) 4.4 Chloride (98 - 107 mmol/L) 101 Carbon Dioxide (22 - 30 mmol/L) 24 Anion Gap (5 - 16) 6 BUN (7 - 17 mg/dL) 17 Creatinine (0.5 - 1.0 mg/dL) 0.8 Estimated GFR (>60 ml/min) > 60 BUN/Creatinine Ratio (7 - 25 %) 21.3 Hematology CBC w Diff NO MAN DIFF REQ WBC (4.8 - 10.8 /CUMM) 10.4 RBC (4.20 - 5.40 /CUMM) 3.07 L Hgb (12.0 - 16.0 G/DL) 9.4 L Hct (37 - 47 %) 27.2 L MCV (81.0 - 99.0 FL) 88.5 MCH (27.0 - 31.0 PG) 30.7 MCHC (33.0 - 37.0 G/DL) 34.7 RDW (11.5 - 14.5 %) 13.3 Plt Count (130 - 400 /CUMM) 133 MPV (7.4 - 10.4 FL) 11.3 H Gran % (42.2 - 75.2 %) 68.8 Lymphocytes % (20.5 - 51.1 %) 14.4 L Monocytes % (1.7 - 9.3 %) 15.4 H Eosinophils % (0 - 5 %) 1.0 Basophils % (0.0 - 2.0 %) 0.4 Absolute Granulocytes (1.4 - 6.5 /CUMM) 7.1 H Absolute Lymphocytes (1.2 - 3.4 /CUMM) 1.5 Absolute Monocytes (0.10 - 0.60 /CUMM) 1.6 H Absolute Eosinophils (0.0 - 0.7 /CUMM) 0.1 Absolute Basophils (0.0 - 0.2 /CUMM) 0 Assessment/Plan Assessment/Plan A: POD #4 s/p right femoral to below knee popliteal bypass with dacron graft; AVSS Plan: Neurovascular checks q4h. Regular diet. To [facility]. Xarelto 15 mg PO BID x 3 weeks, followed by 20 mg daily thereafter. Heparin gtt to stop upon administration of Xarelto. Core Measures Venous Thromboembolism VTE Risk Factors Surgery No Mechanical VTE Prophylaxis d/t N/A MechProphylax Ordered No VTE Pharm Prophylaxis d/t NA PharmProphylax ordered
--- NOTE | 2017-09-29 09:41 | Patient Discharge Instructions ---
See Addendum Discharge Instructions General Discharge Information You were seen/treated for: peripheral vascular disease You had these procedures: right femoral to popliteal bypass with graft Watch for these problems: increased pain, redness, drainage, erythema, fever greater than 101.5f No bath, but you may shower: No (prevena in place, no showers) Other wound care: Prevena can be removed on POD #7. Patient may then shower, patting zak dry. Special Instructions: Xarelto 15 mg PO BID x 21 days, then Xarelto 20 mg daily Diet Continue normal diet: Yes Activity Full Activity/No Limits: No (per PT instructions) Pounds, do NOT lift more than: 10 Acute Coronary Syndrome Inclusion Criteria At DC or during hospital stay patient has or had the following: ACS DIAGNOSIS No Discharge Core Measures Meds if any: Prescribed or Continued at Discharge Meds if any: NOT Prescribed or Continued at Discharge Congestive Heart Failure Inclusion Criteria At DC or during hospital stay patient has or had the following: CHF DIAGNOSIS No Discharge Core Measures Meds if any: Prescribed or Continued at Discharge Meds if any: NOT Prescribed or Continued at Discharge Cerebrovascular accident Inclusion Criteria At DC or during hospital stay patient has or had the following: CVA/TIA Diagnosis No Discharge Core Measures Meds if any: Prescribed or Continued at Discharge Meds if any: NOT Prescribed or Continued at Discharge Venous thromboembolism Inclusion Criteria VTE Diagnosis No VTE Type NONE VTE Confirmed by (Test) NONE Discharge Core Measures - Per Current guidelines, there needs to be overlap - treatment for the first 5 days of Warfarin therapy. - If discharged on Warfarin prior to 5 days of - overlap therapy, the patient will need to be - assessed for post discharge needs including - *Post discharge parental anticoagulation - *Warfarin and/or parental anticoagulation education - *Follow up date to check INR post discharge At least 5 days overlap therapy as Inpatient No Meds if any: Prescribed or Continued at Discharge Note: Overlap Therapy is Warfarin and Anticoagulant Meds if any: NOT Prescribed or Continued at Discharge
[2017-09-29] MEDS ORDERED: XARELTO15 M1 PO ×2 (09:44→09:45)
[2017-09-29] MEDS ORDERED: XARELTO20 M2 PO (09:44)
[2017-09-29] MEDS ORDERED: OXYCODONE HCL5 M1 PO (09:47)
[2017-09-29 12:33] VITALS: BP 136/74
== END 2017-09-29 14:20 | DRG 254 ==
LOC: CRI 01:43 → SDA 01:43 → ENRESERV 13:58 → ENTRNSPT 14:51 → EDTRNSPTSTS 15:06 → EDTRNSPT 15:06 → CMPTRNSPT 15:20 → CRI 15:26 → 2NB 09-28 22:16 → ENPENDDIS 09-29 11:56 → 2NB 09-29 14:20
PROVIDERS: Nurse Practitioner; Physician Assistant Surgical
PROC: 04CM0ZZ Extirpation of Matter from Right Popliteal Artery, Open Approach (ICD-10-PCS; principal; 2017-09-25)
PROC: 2W16X6Z Compression of Right Inguinal Region using Pressure Dressing (ICD-10-PCS; principal; 2017-09-25)
PROC: 041K0JL Bypass Right Femoral Artery to Popliteal Artery with Synthetic Substitute, Open Approach (ICD-10-PCS; principal; 2017-09-25)
DX: I70.321 Atherosclerosis of unspecified type of bypass graft(s) of the extremities with rest pain, right leg (principal); J44.9 Chronic obstructive pulmonary disease, unspecified; R00.1 Bradycardia, unspecified; E78.5 Hyperlipidemia, unspecified; I10 Essential (primary) hypertension; I77.89 Other specified disorders of arteries and arterioles; G25.81 Restless legs syndrome; F17.210 Nicotine dependence, cigarettes, uncomplicated; K80.20 Calculus of gallbladder without cholecystitis without obstruction; M81.0 Age-related osteoporosis without current pathological fracture; Z79.82 Long term (current) use of aspirin; Z79.891 Long term (current) use of opiate analgesic; Z79.52 Long term (current) use of systemic steroids; Z88.8 Allergy status to other drugs, medicaments and biological substances; Z91.041 Radiographic dye allergy status
CPT/HCPCS: 2NBSP; CCU; 36415; 82436; 87086; 97110-GO; 97161-GP; 97530-GO; C1768; C1874; J0690; J1644; J3490; J7040

== ENCOUNTER 2017-10-09 06:06 | Inpatient (IN) | payer OTHER ==
[~2017-10-09] VITALS: Ht 167.6 cm; Wt 50.0 kg
[~2017-10-09 06:06] MED LIST changes: +OXYCODONE HCL5 M1 PO; +XARELTO15 M1 PO; +XARELTO20 M2 PO
--- NOTE | 2017-10-09 06:09 | ED AMS/SEIZURE/WEAK/DIZZY ---
History of Present Illness General Chief Complaint: Altered Mental Status Stated Complaint: HYPOTENSIVE, ALTERED MENTAL STATUS Source: patient, old records, EMS Exam Limitations: clinical condition Allergies Coded Allergies: Iodinated Contrast- Oral and IV Dye (Severe, RASH 09/17/17) diazepam (Severe, ANGIODEMA 09/17/17) meperidine (Severe, ANGIODEMA 09/17/17) Reconcile Medications Amlodipine Besylate 10 MG TABLET 1 TAB PO DAILY BP (Reported) Aspirin ([place] Aspirin) 81 MG TABLET.DR 1 TAB PO DAILY HEARTHEALTH ( Reported) Atorvastatin Calcium 10 MG TABLET 1 TAB PO QPM CHOLESTEROL (Reported) Duloxetine HCl 60 MG CAPSULE.DR 1 CAP PO DAILY NERVE PAIN (Reported) Oxycodone HCl/Acetaminophen (Percocet 5-325 MG Tablet) 5 MG-325 MG TABLET 1 TAB PO TID PRN PAIN (Reported) Potassium Chloride 20 MEQ TAB.ER.PRT 1 TAB PO BID SUPPLEMENT (Reported) Rivaroxaban (Xarelto) 20 MG TABLET 1 TAB PO DAILY ANTICOAGULATION with food Rivaroxaban (Xarelto) 15 MG TABLET 15 MG PO BID anticoagulation END DATE IS October AT 2100 Ropinirole HCl 1 MG TABLET 1 TAB PO QPM RLS (Reported) Sennosides/Docusate Sodium (Senna S Tablet) 8.6 MG-50 MG TABLET 1 TAB PO QPM CONSTIPATION (Reported) Triage Nurses Notes Reviewed? yes Onset: Gradual Duration: hour(s): Timing: recent history Injury Environment: home Severity: moderate, severe Modifying Factors: Improves With: rest. Associated Symptoms: weakness HPI: 76 yo woman h/o arterial insufficiency, s/p right fem-pop bypass 2 weeks ago, h/o copd, presents with weakness, fatigue lethargy. At baseline, she is awake and alert. This morning, staff found her lethargic and weak. She notes feeling thirsty, "I'm trying to drink, but I just can't keep up." At the rehab facility, sbp was in 60's, medics took it, sbp 80's. She notes diffuse abdominal discomfort. She notes no cough, dyspnea, fever, chillls, chest pain, dysuria. As told to the medics, "At baseline, the staff said she is awake and alert... completely normal." (Maggi PFEIFFER,Jose R.) Vital Signs & Intake/Output Vital Signs & Intake/Output Vital Signs Date Time Temp Pulse Resp B/P B/P Pulse O2 O2 Flow FiO2 Mean Ox Delivery Rate 10/097 77 142/63 10/09 2041 93 Nasal 2.0L Cannula 10/09 1930 95 Nasal 2.0L Cannula 10/09 1600 97 Nasal 2.0L Cannula 10/09 1600 97.0 86 24 140/70 98 Nasal 2.0L Cannula 10/09 1412 Nasal 2.0L Cannula 10/09 1120 98 Nasal 2.0L Cannula 10/09 1015 96.0 75 20 130/70 96 Nasal 2.0L Cannula 10/09 0944 72 20 137/70 96 Nasal 2.0L Cannula 10/09 0912 96.0 71 20 135/72 98 Nasal 2.0L Cannula 10/09 0845 96.4 72 20 116/58 98 Nasal 2.0L Cannula 10/09 0830 96.2 74 20 110/55 98 Nasal 2.0L Cannula 10/09 0823 72 22 110/54 95 Nasal 2.0L Cannula 10/09 0758 74 20 108/52 98 Nasal 2.0L Cannula 10/09 0737 94.4 74 20 105/55 99 Nasal 2.0L Cannula 10/09 0711 71 20 103/52 97 Nasal 2.0L Cannula 10/09 0620 92 Nasal 2.0L Cannula 10/09 0610 93.8 72 24 102/57 87 Room Air ED Intake and Output 10/10 0000 10/09 1200 Intake Total 1508 2350 Output Total 1550 Balance -42 2350 Intake, Blood 1050 Product Intake, IV 338 2350 Intake, Oral 120 Number 0 Bowel Movements Output, Urine 1550 Patient 111 lb Weight Weight Bed scale Measurement Method (Nancy PFEIFFER,Eder Curran) Past History Medical History Any Pertinent Medical History? see below for history Neurological: NONE EENT: allergies Cardiovascular: hypertension, hyperlipidemia Respiratory: COPD Gastrointestinal: constipation, irritable bowel syndrome Hepatic: NONE Renal: "ONE KIDNEY" Musculoskeletal: osteoporosis Psychiatric: depression Blood Disorders: HYPOKALEMIA Cancer(s): NONE FIELD SERVICER/Reproductive: NONE History of MRSA: No History of VRE: No History of CDIFF: No Influenza Vaccine: 03/19/17 Surgical History Surgical History: ABDOMINAL AORTIC REPAIR R fem-pop bypass with PTFE Psychosocial History Who do you live with Family Services at Home None What is your primary language Swedish Family History Hx Contributory? No (Maggi PFEIFFER,Jose Torres) Review of Systems Review of Systems Constitutional: Reports: no symptoms. EENTM: Reports: no symptoms. Respiratory: Reports: no symptoms. Cardiovascular: Reports: no symptoms. GI: Reports: no symptoms. Genitourinary: Reports: no symptoms. Musculoskeletal: Reports: no symptoms. Skin: Reports: no symptoms. Neurological/Psychological: Reports: no symptoms. Hematologic/Endocrine: Reports: no symptoms. Immunologic/Allergic: Reports: no symptoms. All Other Systems: Reviewed and Negative (Maggi PFEIFFER,Jose Torres) Physical Exam Physical Exam General Appearance: well developed/nourished, cachetic, mild distress Head: atraumatic, normal appearance Eyes: Bilateral: normal appearance, PERRL, EOMI. Ears, Nose, Throat: very dry oral mucosa/tongue Neck: normal inspection, supple, full range of motion Respiratory: normal breath sounds, chest non-tender, no respiratory distress, quiet respiration, lungs clear Cardiovascular: regular rate/rhythm Gastrointestinal: soft, diffuse tenderness in generalized abdomen. Rectal: dark black stool, guiac positive. Back: normal inspection, normal range of motion, vertebral tenderness Extremities: normal range of motion, well healed surgical scar at groin w/ thrill palpable and well healed surgical scar at distal leg. no sign of infection. 1+distal pulse on right leg, thready pulse on left leg Neurologic/Psych: no motor/sensory deficits, awake, oriented x 3, lethargy Reflexes: 0: bicep (R), knee (R), knee (L). Skin: intact Core Measures ACS in differential dx? No CVA/TIA Diagnosis No Sepsis Present: Yes Sepsis Focused Exam Completed? Yes (Maggi PFEIFFER,Jose Torres) Progress Differential Diagnosis: uti, ischemic colitis vs gall bladder disease vs hypovolemia vs other Diagnostic Imaging: Viewed by Me: CT Scan. Discussed w/RAD: CT Scan. Initial ED EKG: diffuse st seg depressions v3-v6.... nsr. Hand-Off Endorsed To: Eder Cruz MD Endorsed Time: 0700 Pending: CT, labs, ultrasound (Maggi PFEIFFER,Jose Torres) Plan of Care: Orders Procedure Date/time Status Nothing by Mouth 10/10 B Active PROTHROMBIN TIME 10/10 1021 Active ICU LAB BUNDLE 10/10 0500 Active CBC WITHOUT DIFFERENTIAL 10/10 0500 Active TROPONIN LEVEL 10/10 0000 Active ICU LAB BUNDLE 10/10 0000 Active EKG 10/10 0000 Active Nothing by Mouth 10/09 L Complete TROPONIN LEVEL 10/09 2000 Complete EKG 10/09 2000 Active TROPONIN LEVEL 10/09 1900 Complete EKG 10/09 1900 Active CBC WITHOUT DIFFERENTIAL 10/09 1800 Complete BLOOD PRODUCT PICKUP 10/09 1550 Active RT: Evaluation 10/09 1412 Active Change service to 10/09 1340 Active Code Status 10/09 1335 Active EKG 10/09 1300 Active Wound Care/Dressing 10/09 1236 Active BLOOD PRODUCT PICKUP 10/09 1156 Active Wound Care/Dressing 10/09 1109 Complete Weight 10/09 1109 Complete VTE Mechanical Prophylaxis 10/09 1109 Complete Vital Signs 10/09 1109 Complete Turn and Reposition 10/09 1109 Active Drains/Tubes 10/09 1109 Complete Teach/Educate 10/09 1109 Active Skin Integrity Protocol 10/09 1109 Active Skin/Pressure Ulcer Assess (Sk 10/09 1109 Active Precautions 10/09 1109 Active Pain Treatment and Response 10/09 1109 Active Nutritional Intake, Monitor 10/09 1109 Active Isolation 10/09 1109 Active CIWA 10/09 1109 Complete Patient Care Conference 10/09 1109 Active Activity/Ambulation 10/09 1109 Complete ECHOCARDIOGRAM 10/09 1053 Active VRE ACTIVE SURVIELLANCE 10/09 1039 Active ACTIVE SURVEILLANCE NARES 10/09 1039 Active Pathway - chart 10/09 1021 Active Patient Data 10/09 0853 Active Admit to inpatient 10/09 0850 Active Chacko, Insertion/Removal/Asses 10/09 0846 Active BLOOD PRODUCT PICKUP 10/09 0752 Active Intake & Output 10/09 0727 Complete LEUKOCYTE POOR (PACKED CELLS) 10/09 0658 Active Add-on Test (ER Only) 10/09 0650 Active TOTAL IRON BINDING CAPACITY 10/09 0615 Complete RETICULOCYTE COUNT 10/09 0615 Complete PHOSPHORUS 10/09 0615 Complete MAGNESIUM 10/09 0615 Complete FERRITIN 10/09 0615 Complete SERUM IRON 10/09 0615 Complete LACTIC ACID 10/09 0611 Complete CULTURE,URINE 10/09 0610 Active BLOOD CULTURE 10/09 0610 Active URINALYSIS 10/09 0610 Complete TROPONIN LEVEL 10/09 06 Complete LIPASE 10/09 06 Complete HEPATIC FUNCTION PANEL 10/09 609 Complete CBC WITHOUT DIFFERENTIAL 10/09 609 Complete BASIC METABOLIC PANEL 10/09 609 Complete AMYLASE 10/09 06 Complete EKG 10/09 06 Active TYPE & SCREEN (NOT X-MATCH) 10/09 06 Complete TRC EVALUATION (GEN) 10/09 UNK Complete THERAPIST ORDERS 10/09 UNK Complete OXYGEN SETUP (GEN) 10/09 UNK Complete Saline Lock 10/09 UNK Active Change service to 10/09 UNK Active Lab Add-on Test 10/09 UNK Active VTE Mechanical Prophylaxis 10/09 UNK Active Vital Signs 10/09 UNK Active Intake & Output 10/09 UNK Active Hemoccult 10/09 UNK Active Activity/Ambulation 10/09 UNK Active Current Medications Sig/Rocael Start time Last Medication Dose Stop Time Status Admin Duloxetine HCl 60 MG DAILY 10/10 0900 AC (Cymbalta) Metoprolol Tartrate 12.5 MG BID 10/09 2130 AC 10/09 (Lopressor) 2247 Atorvastatin Calcium 10 MG QPM 10/09 2100 AC 10/09 (Lipitor) 2115 Pantoprazole Sodium 40 MG BID 10/09 2100 AC 10/09 (Protonix) 2124 Ropinirole HCl 1 MG QPM 10/09 2100 AC 10/09 (Requip) 2115 Trimethobenzamide HCl 200 MG 4 TIMES/DAY PRN 10/09 1700 AC 10/09 (Tigan) 1710 Albuterol Sulfate 3 ML EVERY 4 HRS/AWAKE .. 10/09 1430 AC (Proventil) Sodium Chloride 1,000 ML ONCE ONE 10/09 1030 AC 10/09 (Normal Saline 0.9%) 10/10 06 1835 Laboratory Tests 10/09/17 1800: Troponin I 6.42 *H, CBC w Diff NO MAN DIFF REQ, RBC 3.48 L, MCV 85.7, MCH 28.9, MCHC 33.8, RDW 17.8 H, MPV 9.0, Gran % 85.2 H, Lymphocytes % 7.0 L, Monocytes % 7.7, Eosinophils % 0, Basophils % 0.1, Absolute Granulocytes 11.5 H, Absolute Lymphocytes 0.9 L, Absolute Monocytes 1.0 H, Absolute Eosinophils 0, Absolute Basophils 0 10/09/17 1300: Troponin I Cancelled 10/09/17 1255: Troponin I 2.92 *H 10/09/17 0911: Lactic Acid Cancelled 10/09/17 0907: Urine Color YEL, Urine Clarity HAZY H, Urine pH 6.5, Ur Specific [place] 1.020, Urine Protein 30 H, Urine Ketones NEG, Urine Nitrite NEG, Urine Bilirubin NEG, Urine Urobilinogen 1.0, Ur Leukocyte Esterase TRACE H, Ur Microscopic SEDIMENT EXAMINED, Urine RBC 10-15 H, Urine WBC 1-3 H, Ur Epithelial Cells FEW, Urine Bacteria FEW H, Hyaline Casts RARE H, Urine Mucus FEW, Urine Hemoglobin SMALL H, Urine Glucose NEG 10/09/17 0615: Lactic Acid 1.8 10/09/17 0615: Anion Gap 7, Estimated GFR > 60, BUN/Creatinine Ratio 30.0 H, Glucose 167 H, Calcium 8.0 L, Phosphorus 4.0, Magnesium 1.8, Iron 26 L, TIBC 284, Ferritin 169.0, Total Bilirubin 0.7, Direct Bilirubin 0.5 H, AST 24, ALT 25, Alkaline Phosphatase 58, Troponin I 1.26 *H, Total Protein 5.0 L, Albumin 2.7 L, Amylase 36, Lipase 42, CBC w Diff NO MAN DIFF REQ, RBC 1.58 L, MCV 91.2, MCH 30.0, MCHC 32.9 L, RDW 16.1 H, MPV 8.3, Gran % 82.0 H, Lymphocytes % 9.4 L, Monocytes % 7.9, Eosinophils % 0.2, Basophils % 0.5, Absolute Granulocytes 7.0 H, Absolute Lymphocytes 0.8 L, Absolute Monocytes 0.7 H, Absolute Eosinophils 0, Absolute Basophils 0, Retic Count 10.20 H Microbiology 10/09 1050 UPPER RESP: Surveillance Culture - RECD 10/09 1050 GI: Surveillance Culture - RECD 10/09 0907 URINE ROUT: Urine Culture - RECD 10/09 06 BLOOD: Blood Culture - RECD 10/09 06 BLOOD: Blood Culture - RECD Radiology Impression: PATIENT: GUSTAVO MANSFIELD PRESENT AGE: 76 PATIENT ACCOUNT NO: [id number] : 38 LOCATION: [facility] ORDERING PHYSICIAN: Jose Tay MD SERVICE DATE: 10/09/17 EXAM TYPE: CAT - CT HEAD WO IV CONTRAST EXAMINATION: CT HEAD WITHOUT CONTRAST CLINICAL INFORMATION: Mental status change. COMPARISON: None. TECHNIQUE: Contiguous axial imaging was performed from the skull base to vertex without intravenous contrast. DLP: 606 mGy-cm. FINDINGS: There is no evidence of acute intracranial hemorrhage or territorial infarction. No abnormal mass effect or midline shift is seen. Tellez to white matter differentiation is well preserved. No extra-axial fluid collections are identified. No hydrocephalus. Proportional prominence of the ventricles and sulcal spaces is consistent with mild volume loss. Probable subacute or chronic lacunar infarct in the left lentiform nucleus. The osseous structures and soft tissues are normal. The mastoid air cells and visualized portions of the paranasal sinuses are well aerated. IMPRESSION: No acute intracranial pathology. Mild cerebral volume loss. Probable subacute or chronic lacunar infarct in the left lentiform. DICTATED BY: Benjamin Farah MD DATE/TIME DICTATED:10/09/17733 POULTRY INSPECTOR: EMILY DATE/TIME TRANSCRIBED:10/09/17733 CONFIDENTIAL, DO NOT COPY WITHOUT APPROPRIATE AUTHORIZATION. <Electronically signed in Other Vendor System> SIGNED BY: Benjamin Farah MD 10/09/17 0740, PATIENT: GUSTAVO MANSFIELD PRESENT AGE: 76 PATIENT ACCOUNT NO: [id number] : 38 LOCATION: [facility] ORDERING PHYSICIAN: Jose Tay MD SERVICE DATE: 10/09/17 EXAM TYPE: CAT - CT ABD & PELVIS W/ O IV CONTRAS; CT CHEST WO IV CONTRAST EXAMINATION: CT CHEST WITHOUT CONTRAST CT ABDOMEN AND PELVIS WITHOUT CONTRAST CLINICAL INFORMATION: Shock COMPARISON: . 01/09/2013. TECHNIQUE: Multidetector volumetric imaging was performed through the chest, abdomen and pelvis without contrast. Sagittal and coronal reformatted images were obtained on the technologist's workstation. Axial MIP volume rendering provided. DLP: 364 mGy-cm. FINDINGS: CHEST: Lungs: The central airways are patent. There is mild bronchial wall thickening bilaterally. Mild centrilobular emphysema noted. There is pleural parenchymal scarring at the bilateral apices. The extent of scarring has significantly increased since 2013. There is an irregular nodule at the posterior left apex which measures 1 cm, which is unchanged since 2013, suggesting this is a component of the scarring, series 4 image 67. Septal thickening noted at the apices. Subpleural reticulation throughout. Small bilateral pleural effusions with dependent atelectasis. There are multiple additional pulmonary nodules seen throughout the lungs, which appear new since the previous CT from 2013. For instance, there is a 0.3 cm subpleural right upper lobe nodule on series 4 image 206. 0.4 cm right upper lobe subpleural nodule on series 4 image 146. Numerous additional small nodules are seen. There is no pneumothorax. No dense consolidation. Mediastinum: The heart is normal in size. Coronary artery calcifications are present. Aortic calcifications are present. The aorta is normal in caliber. No pericardial effusion. Mildly prominent mediastinal lymph nodes are noted. For instance, there is a precarinal node with a short axis dimension of 1.1 cm, series 2 image 23. Chest Wall/Axilla: No lymphadenopathy. No chest wall mass. ABDOMEN/PELVIS: Liver, Gallbladder, Biliary Tree: The liver is normal in size, shape, and attenuation. There is a coarse calcification in the right lobe of the liver, unchanged. The multiple hypoattenuating lesions throughout the liver are again noted, better depicted on the recent prior CT with contrast. No intrahepatic biliary ductal dilatation is present. Redemonstration of a 1.1 cm calcified gallstone. No gallbladder wall thickening or pericholecystic fluid. Pancreas: Unremarkable. Spleen: Unremarkable. Adrenal Glands: Unremarkable. Kidneys and Ureters: The right kidney is atrophic and polycystic. The left kidney is hypertrophied. No hydronephrosis. There is a left midpole 0.3 cm calculus, 7 cm from the posterior axillary line. Left renal cysts are again noted. Bladder: Unremarkable. Gastrointestinal Tract: The stomach is unremarkable. The small bowel is normal in caliber without obstruction. No colonic wall thickening or inflammatory appearance. No free air or free fluid. Abdominal Wall: No significant hernia noted. Skin zak overlie the right inguinal region. Mild stranding is seen superficially. Lymphovascular Structures: Lymph nodes: Normal. Vascular: There is an aortobiiliac bypass in place. Diffuse calcification associated with both the kenaitze aorta and the graft. Patency is not assessed on this noncontrast study. Pelvic Viscera: Unremarkable. OSSEOUS STRUCTURES: No suspicious sclerotic or lytic bone lesions are identified. Mild compression deformity of the L1 vertebral body is unchanged. Degenerative changes throughout the spine are mild. There is scoliotic curvature of the spine. IMPRESSION: 1. Chronic changes of the lung apices. The degree of pleural thickening and scarring has progressed since the 2013 study. There is emphysema. Bronchial wall thickening may represent chronic bronchitis, although an acute process is not excluded. Small pleural effusions are present with septal thickening. A component of edema is possible. 2. Multiple pulmonary nodules are noted, which appear new from the 2013 study, measuring up to 0.4 cm. Consider 12 month follow -up chest CT. 3. Atrophic right kidney with hypertrophied left kidney. Nonobstructing left renal calculus. 4. Diffuse vascular disease with aortobiiliac bypass in place. 5. Cholelithiasis. DICTATED BY: Benjamin Farah MD DATE/TIME DICTATED:10/09/17736 POULTRY INSPECTOR:EMILY DATE/TIME TRANSCRIBED:10/09/17736 CONFIDENTIAL, DO NOT COPY WITHOUT APPROPRIATE AUTHORIZATION. <Electronically signed in Other Vendor System> SIGNED BY: Gagan PFEIFFER,Benjamin 10/09/17 0752 Comments: 10/09/2017 7:31:33 AM patient signed out to me by Dr. Tay at shift currency exchange specialist. Clinical impression of a GI bleed given low H&H and heme positive black stool. Patient is also on XARALTO. EKG shows lateral ischemic changes and increased troponin. I think these are a reflection of the low oxygen carrying capacity of the blood and demand ischemia. These will likely correct with blood transfusion. The patient has no chest pain currently. I will page cardiology regarding the elevated troponin. 10/09/2017 8:15:40 AM patient's case discussed with Dr. Ferrera who agrees with blood transfusion and monitoring troponin and EKG. He agrees very likely demand ischemia that should resolve with the transfusion. He agrees that given the evidence of GI bleeding that anticoagulation or platelet inhibitors would be risky. 10/09/2017 8:47:06 AM patient's case discussed with Dr. Calderon and patient will be admitted to intensive care unit initially while she is being stabilized. GI paged. 10/09/2017 9:06:56 AM patient's case discussed with Dr. Villalba. 10/09/2017 10:40:50 AM patient appears much more comfortable, her color is better and she is considerably more alert and conversant. Dr. Brooks here to see her. (Nancy PFEIFFER,Eder Curran) Departure Departure Disposition: STILL A PATIENT Condition: Stable Referrals: Reinier Kwong MD (PCP/Family) Departure Forms: Customer Survey General Discharge Information (Jose Tay MD) Departure Clinical Impression Primary Impression: Upper GI bleed Secondary Impressions: Cardiac ischemia, Elevated troponin, Weakness Admission Note Spoke With: Lazaro Meadows MD Documentation of Exam: Documentation of any treatments & extenuating circumstances including Concerns Regarding Discharge (functional status, medication knowledge or non-compliance, living conditions, etc.) that warrant an admission rather than observation: Patient is critically ill with a clinical presentation consistent with upper GI bleeding along with ischemic EKG changes and an elevated troponin. She now requires an emergent blood transfusion to increase oxygen-carrying capacity and resolve her cardiac demand ischemia. It addition to the blood transfusion the patient should be on a continuous child monitor for the possibility of ischemic induced dysrhythmia. Serial troponins and EKGs should be obtained and treated accordingly. Cardiology consultation should be considered. GI consultation should be considered as well for the possibility of panendoscopy. Patient's hematocrit and hemoglobin should be monitored and treated accordingly. Given this patient's age and multiple acute medical issues, physical therapy should be obtained for the possibility of short-term rehabilitation. This patient cannot be treated as an outpatient given the above and will require a multiple day hospitalization. (Eder Cruz MD) Critical Care Note Critical Care Note Critical Care Time: 30-74 min (Jose Tay MD) Critical Care Note Critical Care Time: 75-104 min (Eder Cruz MD)
[2017-10-09 06:26] LABS: ABSOLUTE BASOPHIL COUNT 0 /CUMM (0.0-0.2); ABSOLUTE EOSINOPHIL COUNT 0 /CUMM (0.0-0.7); ABSOLUTE LYMPH COUNT 0.8 /CUMM (1.2-3.4); BASOPHIL % 0.5 % (0.0-2.0); EOSINOPHIL % 0.2 % (0-5); RED BLOOD CELL CT 1.58 /CUMM (4.20-5.40)
[2017-10-09 06:43] LABS: ABSOLUTE MONOCYTE COUNT 0.7 /CUMM (0.10-0.60); MEAN CORPUSCULAR HGB CONC 32.9 G/DL (33.0-37.0); MEAN CORPUSCULAR VOLUME 91.2 FL (81.0-99.0); MEAN PLATELET VOLUME 8.3 FL (7.4-10.4); PLATELET COUNT 302 /CUMM (130-400); RBC DISTRIBUTION WIDTH 16.1 % (11.5-14.5); WHITE BLOOD CELL COUNT 8.5 /CUMM (4.8-10.8)
[2017-10-09 06:49] LABS: HEMATOCRIT 14.4 % (37-47)
--- NOTE | 2017-10-09 07:40 | CT SCAN REPORT ---
EXAMINATION: CT HEAD WITHOUT CONTRAST CLINICAL INFORMATION: Mental status change. COMPARISON: None. TECHNIQUE: Contiguous axial imaging was performed from the skull base to vertex without intravenous contrast. DLP: 606 mGy-cm. FINDINGS: There is no evidence of acute intracranial hemorrhage or territorial infarction. No abnormal mass effect or midline shift is seen. Tellez to white matter differentiation is well preserved. No extra-axial fluid collections are identified. No hydrocephalus. Proportional prominence of the ventricles and sulcal spaces is consistent with mild volume loss. Probable subacute or chronic lacunar infarct in the left lentiform nucleus. The osseous structures and soft tissues are normal. The mastoid air cells and visualized portions of the paranasal sinuses are well aerated. IMPRESSION: No acute intracranial pathology. Mild cerebral volume loss. Probable subacute or chronic lacunar infarct in the left lentiform.
--- NOTE | 2017-10-09 07:52 | CT SCAN REPORT ---
EXAMINATION: CT CHEST WITHOUT CONTRAST CT ABDOMEN AND PELVIS WITHOUT CONTRAST CLINICAL INFORMATION: Shock COMPARISON: 09/05/2017. 01/09/2013. TECHNIQUE: Multidetector volumetric imaging was performed through the chest, abdomen and pelvis without contrast. Sagittal and coronal reformatted images were obtained on the technologist's workstation. Axial MIP volume rendering provided. DLP: 364 mGy-cm. FINDINGS: CHEST: Lungs: The central airways are patent. There is mild bronchial wall thickening bilaterally. Mild centrilobular emphysema noted. There is pleural parenchymal scarring at the bilateral apices. The extent of scarring has significantly increased since 2013. There is an irregular nodule at the posterior left apex which measures 1 cm, which is unchanged since 2013, suggesting this is a component of the scarring, series 4 image 67. Septal thickening noted at the apices. Subpleural reticulation throughout. Small bilateral pleural effusions with dependent atelectasis. There are multiple additional pulmonary nodules seen throughout the lungs, which appear new since the previous CT from 2013. For instance, there is a 0.3 cm subpleural right upper lobe nodule on series 4 image 206. 0.4 cm right upper lobe subpleural nodule on series 4 image 146. Numerous additional small nodules are seen. There is no pneumothorax. No dense consolidation. Mediastinum: The heart is normal in size. Coronary artery calcifications are present. Aortic calcifications are present. The aorta is normal in caliber. No pericardial effusion. Mildly prominent mediastinal lymph nodes are noted. For instance, there is a precarinal node with a short axis dimension of 1.1 cm, series 2 image 23. Chest Wall/Axilla: No lymphadenopathy. No chest wall mass. ABDOMEN/PELVIS: Liver, Gallbladder, Biliary Tree: The liver is normal in size, shape, and attenuation. There is a coarse calcification in the right lobe of the liver, unchanged. The multiple hypoattenuating lesions throughout the liver are again noted, better depicted on the recent prior CT with contrast. No intrahepatic biliary ductal dilatation is present. Redemonstration of a 1.1 cm calcified gallstone. No gallbladder wall thickening or pericholecystic fluid. Pancreas: Unremarkable. Spleen: Unremarkable. Adrenal Glands: Unremarkable. Kidneys and Ureters: The right kidney is atrophic and polycystic. The left kidney is hypertrophied. No hydronephrosis. There is a left midpole 0.3 cm calculus, 7 cm from the posterior axillary line. Left renal cysts are again noted. Bladder: Unremarkable. Gastrointestinal Tract: The stomach is unremarkable. The small bowel is normal in caliber without obstruction. No colonic wall thickening or inflammatory appearance. No free air or free fluid. Abdominal Wall: No significant hernia noted. Skin zak overlie the right inguinal region. Mild stranding is seen superficially. Lymphovascular Structures: Lymph nodes: Normal. Vascular: There is an aortobiiliac bypass in place. Diffuse calcification associated with both the [place] aorta and the graft. Patency is not assessed on this noncontrast study. Pelvic Viscera: Unremarkable. OSSEOUS STRUCTURES: No suspicious sclerotic or lytic bone lesions are identified. Mild compression deformity of the L1 vertebral body is unchanged. Degenerative changes throughout the spine are mild. There is scoliotic curvature of the spine. IMPRESSION: 1. Chronic changes of the lung apices. The degree of pleural thickening and scarring has progressed since the 2013 study. There is emphysema. Bronchial wall thickening may represent chronic bronchitis, although an acute process is not excluded. Small pleural effusions are present with septal thickening. A component of edema is possible. 2. Multiple pulmonary nodules are noted, which appear new from the 2013 study, measuring up to 0.4 cm. Consider 12 month follow-up chest CT. 3. Atrophic right kidney with hypertrophied left kidney. Nonobstructing left renal calculus. 4. Diffuse vascular disease with aortobiiliac bypass in place. 5. Cholelithiasis.
[2017-10-09] MEDS ORDERED: XARELTO15 M1 PO (07:53)
[2017-10-09] MEDS ORDERED: SENNA S TABLET1 EACH PO (07:55)
--- NOTE | 2017-10-09 09:30 | History & Physical ---
ShitalgeorgibrigitteToanjerel 10/09/17 0930: General Information and HPI MD Statement: I have seen and personally examined GUSTAVO MANSFIELD and documented this H& P. The patient is a 76 year old F who presented with a patient stated chief complaint of altered mental status. Source of Information: old records Exam Limitations: patient's age History of Present Illness: Mr Lyons is a 76 year old woman with a past medical history of peripheral arterial disease, previous AAA repair, hypertension, hyperlipidemia, depression , irritable bowel syndrome, status post right femoral-popliteal bypass w/ PTFE 09/25/2017 on Riveroxaban (abdominal aortic repair), COPD was sent from an ECF with a chief concern of weakness, fatigue and lethargy. She was known to be in her usual state of heatlh until a few weeks ago until she underwent fem-pop bypass done by Dr. Galarza without any postoperative competitions (09/25/2017-09/28/2017). There was a drop in H&H after the surgery, which stabilized around Hb 9.4 at the discharge. She was started on Riveroxaban after the surgery, and was discharged to [facility] ( [facility] ). As per the pt, she started noticing dark stools a few days after the surgery. She did not have an abdominal pain at that time, but reported decreased appetite. She also reported dyspnea that has been worsening in the last few weeks; which progressed to a point that she was dyspeic at rest. No chest discomfort, palpitations. Reported nausea, but no vomiting. Reported orthostatic dizziness. No dyspepsia, dysphagea. No dysurea. No h/o use of NSAIDs. Continues to have pain in the right groin area, and didnt seem to have any bleeding from the site. On the am of admission, she was found to be hypotensive upto SBP 80-90s, and Pulse ox in the range of 70s. She was sent to the [facility] for evaluation. Last colonoscopy was more than 20 yrs ago, with no abnormal findings. No recent UGDs done. No family h/o of GI cancers, or CAD. Past smoker 60 pk yrs. Allergies/Medications Allergies: Coded Allergies: Iodinated Contrast- Oral and IV Dye (Severe, RASH 09/17/17) diazepam (Severe, ANGIODEMA 09/17/17) meperidine (Severe, ANGIODEMA 09/17/17) Home Med list Amlodipine Besylate 10 MG TABLET 1 TAB PO DAILY BP (Reported) Aspirin ([place] Aspirin) 81 MG TABLET.DR 1 TAB PO DAILY HEARTHEALTH ( Reported) Atorvastatin Calcium 10 MG TABLET 1 TAB PO QPM CHOLESTEROL (Reported) Duloxetine HCl 60 MG CAPSULE.DR 1 CAP PO DAILY NERVE PAIN (Reported) Oxycodone HCl/Acetaminophen (Percocet 5-325 MG Tablet) 5 MG-325 MG TABLET 1 TAB PO TID PRN PAIN (Reported) Potassium Chloride 20 MEQ TAB.ER.PRT 1 TAB PO BID SUPPLEMENT (Reported) Rivaroxaban (Xarelto) 20 MG TABLET 1 TAB PO DAILY ANTICOAGULATION with food Rivaroxaban (Xarelto) 15 MG TABLET 15 MG PO BID anticoagulation END DATE IS October AT 2100 Ropinirole HCl 1 MG TABLET 1 TAB PO QPM RLS (Reported) Sennosides/Docusate Sodium (Senna S Tablet) 8.6 MG-50 MG TABLET 1 TAB PO QPM CONSTIPATION (Reported) Past History Travel History Traveled to [place] past 21 day No Medical History Neurological: NONE EENT: allergies Cardiovascular: hypertension, hyperlipidemia Respiratory: COPD Gastrointestinal: irritable bowel syndrome Hepatic: NONE Renal: "ONE KIDNEY" Musculoskeletal: osteoporosis Psychiatric: depression Cancer(s): NONE 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 EENTM: Denies: double vision. Cardiovascular: Reports: orthopena. Denies: chest pain, palpitations. Respiratory: Denies: cough, orthopnea. GI: Denies: abdominal pain. Genitourinary: Denies: dysuria. Musculoskeletal: Denies: back pain, joint pain. Skin: Denies: change in skin color. Neurological/Psychological: Denies: anxiety. Hematologic/Endocrine: Denies: bruising. Exam & Diagnostic Data Last 24 Hrs of Vital Signs/I&O Vital Signs Date Time Temp Pulse Resp B/P B/P Pulse O2 O2 Flow FiO2 Mean Ox Delivery Rate 10/09 1015 96.0 75 20 130/70 96 Nasal 2.0L Cannula 10/09 0944 72 20 137/70 96 Nasal 2.0L Cannula 10/09 0912 96.0 71 20 135/72 98 Nasal 2.0L Cannula 10/09 0845 96.4 72 20 116/58 98 Nasal 2.0L Cannula 10/09 0830 96.2 74 20 110/55 98 Nasal 2.0L Cannula 10/09 0823 72 22 110/54 95 Nasal 2.0L Cannula 10/09 0758 74 20 108/52 98 Nasal 2.0L Cannula 10/09 0737 94.4 74 20 105/55 99 Nasal 2.0L Cannula 10/09 0711 71 20 103/52 97 Nasal 2.0L Cannula 10/09 0620 92 Nasal 2.0L Cannula 10/09 0610 93.8 72 24 102/57 87 Room Air Intake & Output 10/09 1600 10/09 0800 10/09 0000 Intake Total 2350 Output Total Balance 2350 Intake, IV 2350 Patient 79 lb 15.99 oz Weight Physical Exam General Appearance Alert, Oriented X3, Cooperative, Mild Distress Skin No Rashes Skin Temp/Moisture Exam: Warm/Dry Sepsis Skin Exam (color): Normal for Ethnicity HEENT Atraumatic, PERRLA, EOMI Neck Supple, No JVD, No thryomegaly, +2 Carotid Pulse wo Bruit Lymphatic Cervical nl Cardiovascular Regular Rate, Normal S1, Normal S2, No Murmurs Lungs Clear to Auscultation, Normal Air Movement, decreased air entry Abdomen Normal Bowel Sounds, Soft, No Tenderness, No Hepatospenomegaly Neurological Normal Speech, Strength at 5/5 X4 Ext, Normal Tone, Sensation Intact, Cranial Nerves 3-12 NL, Reflexes 2+ Extremities No Edema, No Tenderness/Swelling, Cold, decreased pulsations on the left side Vascular decreased pulsations on the left side. - popliteal, dorsalis pedis- decreased Sepsis Peripheral Pulse Location: Dorsalis Pedis Sepsis Peripheral Pulse Exam: Normal (normal on right side) Assessment/Plan Assessment: Mr Lyons is a 76 year old woman with a past medical history of peripheral arterial disease, hypertension, hyperlipidemia, depression, irritable bowel syndrome, status post right femoral-popliteal bypass w/ PTFE 09/25/2017 on Riveroxaban (abdominal aortic repair), COPD was sent from an F with a chief concern of weakness, fatigue and lethargy likely secondary to acute blood loss of anemia, post surgical hematoma or was post-surgical hemorrhage. At the time of [id number] 93.8 (improved to 96.4) his pulse rate 72, respiration 24, blood pressure 102/57 (improved to 116/57, 87% on room air improved to 98% on supplemental oxygen nasal cannula 2 L. Stool guaiac- EKG findings NSR, ST depressions V4-V6. Pertinent Findings: WBC 8.5 Hemoglobin 4.8, hematocrit 14.4 (last blood work 09/17/2017 hemoglobin 14.1--9.9 --4.8) MCV 91.2, RDW 16.1. Platelets 302. Sodium 134, potassium 3.8, bicarbonate 22, anion gap 7, BUN 21, creatinine 0.7. BUN/creatinine ratio 30 Lactic acid 1.8 Liver chemistries-AST 24, ALT 25, alkaline phosphatase 58, total bilirubin 0.7, albumin 2.7. Cardiac enzyemes: troponin I-1.26. CT head-10/09/2017- No acute intracranial pathology. Mild cerebral volume loss. Probable subacute or chronic lacunar infarct in the left lentiform. CT chest, abdomen-10/09/2017: 1. Chronic changes of the lung apices. The degree of pleural thickening and scarring has progressed since the 2013 study. There is emphysema. Bronchial wall thickening may represent chronic bronchitis, although an acute process is not excluded. Small pleural effusions are present with septal thickening. A component of edema is possible. 2. Multiple pulmonary nodules are noted, which appear new from the 2013 study, measuring up to 0.4 cm. Consider 12 month follow-up chest CT. 3. Atrophic right kidney with hypertrophied left kidney. Nonobstructing left renal calculus. 4. Diffuse vascular disease with aortobiiliac bypass in place. 5. Cholelithiasis. Echocardiogram- ordered. Etiology in her case of an acute GI bleed could likely be due to the use of a newer anticoagulant-Riveroxaban, which is known increased risk of GI bleed. She also had a recent surgery, which puts her at higher risk of hematoma at the area of surgery. In regards to the EKG changes, which could be due to demand ischemia. CT findings of subacute changes on CT head could be incidental, which should be watched. Problem list: #1 acute blood loss anemia secondary to possibly upper GI bleed #2 finding of pulmonary nodule, emphysema #3 history of hypertension, hyperlipidemia #4 peripheral arterial disease #5 elevated troponin, associated EKG changes #6 Rt femoral hematoma Plan: Respiratory: Stable at this time. She has incidental finding of pulmonary nodules, and does have emphysematous changes. She should receive TRC. No steroids are indicated at this time. Infectious: Stable at this time. Continue to watch white count, fever. She was found to have hypothermia, likely secondary to severe anemia. No further antibiotics indicated at this time. Circulatory: Continue to monitor closely. Hold antihypertensives at this point. 2 large IV bore needles, continue to monitor vitals closely. EKG changes could be due to demand, but would continue to monitor closely with serial electrocardiograms and cardiac enzymes. Cardiology consult to be obtained. Echocardiogram ordered. Follow up US arterial. No ASA at this time, but would defer the decision to start any beta ama after chein Echocardiogram. Hematology: Continue to monitor H&H closely. PRBC 2. Reassess the need for more transfusions. Hold all anticoagulants at this time. Hold aspirin. Deferred the decision to restart these medications to vascular surgeon, after she is more stable. Metabolic: Stable at this time. Replete electrolytes accordingly. Check renal function closely. Alimentary: She is currently nothing by mouth. Advance diet as tolerated. Antiemetics as needed. IV Protonix by IV twice a day. Would likely get an upper endoscopy in the a.m. Neurology: Continue her home medications of antidepressants. Housekeeping: #1 DVT prophylaxis-Alps only. #2 DNR/DNI #3 nothing by mouth for now. ICU check list: #1 Central line- none #2 Arterial line- none #3 Chacko catheter- none #4 Rectal tube none #5 NG tube none #6 Peripheral line- yes 10/09/17 #7 IV drips- NS, and PRBCs. #8 Vent settings: - none #9 Pressors:- none. As Ranked By This Provider Problem List: 1. Elevated troponin 2. Upper GI bleed 3. Peripheral vascular disease Core Measures/Misc (03/05) Acute Coronary Syndrome ACS Diagnosis: No Congestive Heart Failure Congestive Heart Failure Diagnosis No Cerebrovascular Accident CVA/TIA Diagnosis: No VTE (View Protocol) VTE Risk Factors Acute Medical Illness No Mechanical VTE Prophylaxis d/t N/A MechProphylax Ordered No VTE Pharm Prophylaxis d/t Bleeding (Active) Sepsis (View protocol) Sepsis Present: No George Cash MD 10/09/17 0931: Attending MD Review Statement Attending Statement Attending MD Statement: examined this patient, discuss w/resident/PA/SPECIAL EVENTS DRIVER, agreed w/resident/PA/SPECIAL EVENTS DRIVER, discussed with family, reviewed EMR data (avail), discussed with nursing, discussed with case mgmt, reviewed images, amended to note Attending Assessment/Plan: Impression 76 year old woman * recent fem/pop bypass, presenting with lethargy, hypotension, hypothermia and anemia in the setting of xarelto and pervious surgery * differential diagnosis includes a gi bleed, retroperitoneal bleed, hemolysis. * troponinemia Plan Respiratory -small up to 4mm nodules and emphysematous changes - f/u 12 month scan if appropriate -o2 supplementation to achieve spo2 >92% ID -in the ER pt received vancomycin/ceftazadime, there is no evidence of infection , no fever, no leukocytosis and symptoms are clearly related to anemia at this time -will monitor and follow cultures that have been sent already [facility] -given elevated troponins, will obtain cardiology consultation -echocardiogram -f/u troponins, ekgs Heme -check coags -hgb goal >8 given troponin elevation -gi consultation -cardiology consultation -xarelto is held -vascular surgery consultation Metabolic -ins/outs monitoring -creatinine monitoring -check mag, phos Alimentary -NPO, f/u GI Neuro -chronic vs subacute changes reported on ct DVT prophylaxis with ALPS given anemia TTS 45 min ICU Checklist Consultations -cardiology -gastroenterology -vascular surgery Code Status -will confirm, DNR bracelet noted
--- NOTE | 2017-10-09 10:39 | Cons- Cardiology ---
General Information and HPI Consulting Request Date of Consult: 10/09/17 Requested By: Cruzito Louie MD Reason for Consult: Elevated troponin History of Present Illness: The patient is a pleasant 76-year-old female with history of right femoropopliteal bypass on 09/25/17 for critical limb ischemia and abdominal aortic aneurysm repair. She was discharged to rehab on Xarelto after her recent surgery. While at rehab she developed lightheadedness and decreased energy level. She was noted to be hypotensive with systolic blood pressure in the 80s. Blood pressure improved with fluid bolus. She was sent to the emergency department where she was found to be profoundly anemic. She complains of recent black tarry stool, and the stool was guaiac positive in the emergency department. Hemoglobin level was noted to be 4.8 prior to transfusion. She denies any recent chest pain. She notes recent abdominal discomfort. She complains of recent shortness of breath over the past few weeks which has progressed further over the past few days. No syncope. No orthopnea. No nausea or vomiting. No diaphoresis. Allergies/Medications Allergies: Coded Allergies: Iodinated Contrast- Oral and IV Dye (Severe, RASH 09/17/17) diazepam (Severe, ANGIODEMA 09/17/17) meperidine (Severe, ANGIODEMA 09/17/17) Home Med List: Amlodipine Besylate 10 MG TABLET 1 TAB PO DAILY BP (Reported) Aspirin ([place] Aspirin) 81 MG TABLET.DR 1 TAB PO DAILY HEARTHEALTH ( Reported) Atorvastatin Calcium 10 MG TABLET 1 TAB PO QPM CHOLESTEROL (Reported) Duloxetine HCl 60 MG CAPSULE.DR 1 CAP PO DAILY NERVE PAIN (Reported) Oxycodone HCl/Acetaminophen (Percocet 5-325 MG Tablet) 5 MG-325 MG TABLET 1 TAB PO TID PRN PAIN (Reported) Potassium Chloride 20 MEQ TAB.ER.PRT 1 TAB PO BID SUPPLEMENT (Reported) Rivaroxaban (Xarelto) 20 MG TABLET 1 TAB PO DAILY ANTICOAGULATION with food Rivaroxaban (Xarelto) 15 MG TABLET 15 MG PO BID anticoagulation END DATE IS October AT 2100 Ropinirole HCl 1 MG TABLET 1 TAB PO QPM RLS (Reported) Sennosides/Docusate Sodium (Senna S Tablet) 8.6 MG-50 MG TABLET 1 TAB PO QPM CONSTIPATION (Reported) Current Medications: Current Medications Sig/Rocael Start time Last Medication Dose Route Stop Time Status Admin Albuterol Sulfate 3 ML EVERY 4 HRS/AWAKE .. 10/09 1430 AC INH Atorvastatin Calcium 10 MG QPM 10/09 2100 AC PO Ceftazidime 1,000 MG Q12 10/09 0900 DC 10/09 IV 0841 Ceftazidime 0 .STK-MED ONE 10/09 0811 DC .ROUTE Duloxetine HCl 60 MG DAILY 10/10 0900 AC PO Pantoprazole Sodium 40 MG BID 10/09 2100 AC IV Pantoprazole Sodium 0 .STK-MED ONE 10/09 0719 DC IV Pantoprazole Sodium 40 MG Q5H 10/09 0715 DC 10/09 Sodium Chloride 100 ML IV 10/09 1200 0727 Ropinirole HCl 1 MG QPM 10/09 2100 AC PO Sodium Chloride 1,000 ML ONCE ONE 10/09 1030 AC IV 10/10 0629 Sodium Chloride 1,000 ML BOLUS ONE 10/09 0915 DC 10/09 IV 10/09 1114 0919 Sodium Chloride 1,000 ML BOLUS ONE 10/09 0630 DC 10/09 IV 10/09 0729 0727 Sodium Chloride 1,000 ML BOLUS ONE 10/09 0615 DC 10/09 IV 10/09 0714 0632 Trimethobenzamide HCl 200 MG 4 TIMES/DAY PRN 10/09 1700 UNVr 10/09 IM 1710 Trimethobenzamide HCl 200 MG ONCE ONE 10/09 1130 DC 10/09 IM 10/09 1131 1125 Vancomycin HCl 0 .STK-MED ONE 10/09 0719 DC .ROUTE Vancomycin HCl 1,000 MG ONCE ONE 10/09 0630 DC 10/09 Dextrose/Water 250 ML IV 10/09 0729 0727 Review of Systems Review of Systems: No rash. No tremor. No fever. No chills. All other systems were reviewed, and were noted to be negative. 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 Surgical History Surgical History: ABDOMINAL AORTIC REPAIR R fem-pop bypass with PTFE Family History Relations & Conditions If Any: GRANDMOTHER Heart disease Psychosocial History Services at Home: None Exam & Diagnostic Data Vital Signs and I&O Vital Signs Date Time Temp Pulse Resp B/P B/P Pulse O2 O2 Flow FiO2 Mean Ox Delivery Rate 10/09 1600 97 Nasal 2.0L Cannula 10/09 1600 97.0 86 24 140/70 98 Nasal 2.0L Cannula 10/09 1412 Nasal 2.0L Cannula 10/09 1120 98 Nasal 2.0L Cannula 10/09 1015 96.0 75 20 130/70 96 Nasal 2.0L Cannula 10/09 0944 72 20 137/70 96 Nasal 2.0L Cannula 10/09 0912 96.0 71 20 135/72 98 Nasal 2.0L Cannula 10/09 0845 96.4 72 20 116/58 98 Nasal 2.0L Cannula 10/09 0830 96.2 74 20 110/55 98 Nasal 2.0L Cannula 10/09 0823 72 22 110/54 95 Nasal 2.0L Cannula 10/09 0758 74 20 108/52 98 Nasal 2.0L Cannula 10/09 0737 94.4 74 20 105/55 99 Nasal 2.0L Cannula 10/09 0711 71 20 103/52 97 Nasal 2.0L Cannula 10/09 0620 92 Nasal 2.0L Cannula 10/09 0610 93.8 72 24 102/57 87 Room Air Intake & Output 10/09 1600 10/09 0800 10/09 0000 10/08 1600 10/08 0800 10/08 0000 Intake Total 749 2350 Output Total 300 Balance 449 2350 Intake, Blood 700 Product Intake, IV 49 2350 Output, Urine 300 Patient 111 lb 79 lb 15.99 oz Weight Weight Bed scale Measurement Method Physical Exam: Gen: The patient is in no acute distress HEENT: Normal nose, ears, and oropharynx. Pupils equal bilaterally. Conjunctiva normal. Neck: Supple with no JVD, no masses, and no thyromegaly Lungs: Clear to auscultation with normal respiratory effort Heart: RRR, S1, S2, no murmurs. No peripheral edema, 1+ pulses in the lower extremities bilaterally Abdomen: Soft, nontender, no masses. No hepatomegaly. No splenomegaly Extremities: No clubbing or cyanosis. Normal muscle strength in the upper and lower extremities Skin: Normal skin turgor with no skin ulcers or lesions noted. Neuro: Cranial nerves intact. Sensation intact Psych: Alert and oriented x 3 with appropriate affect Labs/Mauricio Results: Laboratory Tests 10/09 10/09 10/09 1300 1255 0911 Chemistry Lactic Acid Cancelled Troponin I (< 0.11 ng/ml) Cancelled 2.92 *H 10/09 10/09 0907 0615 Chemistry Lactic Acid (0.7 - 2.1 mmol/L) 1.8 Urines Urine Color (YEL,AMB,STR) YEL Urine Clarity (CLEAR) HAZY H Urine pH (5.0 - 8.0) 6.5 Ur Specific [place] (1.001 - 1.035) 1.020 Urine Protein (NEG,<30 MG/DL) 30 H Urine Ketones (NEG) NEG Urine Nitrite (NEG) NEG Urine Bilirubin (NEG) NEG Urine Urobilinogen (0.1 - 1.0 EU/dl) 1.0 Ur Leukocyte Esterase (NEG) TRACE H Ur Microscopic SEDIMENT EXAMINED Urine RBC (0 - 5 /HPF) 10-15 H Urine WBC (0 - 2 /HPF) 1-3 H Ur Epithelial Cells (NONE,FEW) FEW Urine Bacteria (NEG/NONE) FEW H Hyaline Casts (0/LPF) RARE H Urine Mucus (FEW,NONE) FEW Urine Hemoglobin (NEG) SMALL H Urine Glucose (N MG/DL) NEG 10/09 0615 Chemistry Sodium (137 - 145 mmol/L) 134 L Potassium (3.5 - 5.1 mmol/L) 3.8 Chloride (98 - 107 mmol/L) 105 Carbon Dioxide (22 - 30 mmol/L) 22 Anion Gap (5 - 16) 7 BUN (7 - 17 mg/dL) 21 H Creatinine (0.5 - 1.0 mg/dL) 0.7 Estimated GFR (>60 ml/min) > 60 BUN/Creatinine Ratio (7 - 25 %) 30.0 H Glucose (65 - 99 mg/dL) 167 H Calcium (8.4 - 10.2 mg/dL) 8.0 L Phosphorus (2.5 - 4.5 mg/dL) 4.0 Magnesium (1.6 - 2.3 mg/dL) 1.8 Iron (37 - 170 ug/dL) 26 L TIBC (265 - 497 ug/dL) 284 Ferritin (11.1 - 264 ng/mL) 169.0 Total Bilirubin (0.2 - 1.3 mg/dL) 0.7 Direct Bilirubin (< 0.4 mg/dL) 0.5 H AST (14 - 36 U/L) 24 ALT (9 - 52 U/L) 25 Alkaline Phosphatase (<127 U/L) 58 Troponin I (< 0.11 ng/ml) 1.26 *H Total Protein (6.3 - 8.2 g/dL) 5.0 L Albumin (3.5 - 5.0 g/dL) 2.7 L Amylase (30 - 110 U/L) 36 Lipase (23 - 300 U/L) 42 Hematology CBC w Diff NO MAN DIFF REQ WBC (4.8 - 10.8 /CUMM) 8.5 RBC (4.20 - 5.40 /CUMM) 1.58 L Hgb (12.0 - 16.0 G/DL) 4.8 *L Hct (37 - 47 %) 14.4 *L MCV (81.0 - 99.0 FL) 91.2 MCH (27.0 - 31.0 PG) 30.0 MCHC (33.0 - 37.0 G/DL) 32.9 L RDW (11.5 - 14.5 %) 16.1 H Plt Count (130 - 400 /CUMM) 302 MPV (7.4 - 10.4 FL) 8.3 Gran % (42.2 - 75.2 %) 82.0 H Lymphocytes % (20.5 - 51.1 %) 9.4 L Monocytes % (1.7 - 9.3 %) 7.9 Eosinophils % (0 - 5 %) 0.2 Basophils % (0.0 - 2.0 %) 0.5 Absolute Granulocytes (1.4 - 6.5 /CUMM) 7.0 H Absolute Lymphocytes (1.2 - 3.4 /CUMM) 0.8 L Absolute Monocytes (0.10 - 0.60 /CUMM) 0.7 H Absolute Eosinophils (0.0 - 0.7 /CUMM) 0 Absolute Basophils (0.0 - 0.2 /CUMM) 0 Retic Count (0.5 - 2.0 %) 10.20 H Diagnostic Data EKG Results EKG tracings independently reviewed, and reveals NSR at 73, ST depression consistent with possible ischemia. Other Results CT scan of the chest, abdomen, and pelvis: 1. Chronic changes of the lung apices. The degree of pleural thickening and scarring has progressed since the 2013 study. There is emphysema. Bronchial wall thickening may represent chronic bronchitis, although an acute process is not excluded. Small pleural effusions are present with septal thickening. A component of edema is possible. 2. Multiple pulmonary nodules are noted, which appear new from the 2013 study, measuring up to 0.4 cm. Consider 12 month follow-up chest CT. 3. Atrophic right kidney with hypertrophied left kidney. Nonobstructing left renal calculus. 4. Diffuse vascular disease with aortobiiliac bypass in place. 5. Chole[address]iasis. CT scan of the head: No acute intracranial pathology. Mild cerebral volume loss. Probable subacute or chronic lacunar infarct in the left lentiform. Bilateral lower extremity Doppler study: 1. Patent right lower extremity graft. 2. Suspected approximately 6 cm hematoma of the right groin. 3. Occlusion within the proximal left superficial femoral artery with reconstitution of the mid left superficial femoral artery. Flow throughout the left lower extremity is diminished suggesting inflow disease. Assessment/Plan Assessment/Plan 76-year-old female with history of peripheral arterial disease status post recent revision of fem-pop bypass presening with severe anemia secondary to GI bleed and hematoma. She is noted to have a significant troponin elevation with ST depression on EKG. No definite chest pain or other cardiac symtpoms. The presentation likely represents Type II SD precipitated by anemia in the setting of likely fixed CAD. Recommendations: * Check serial troponin and EKG * Echocardiogram * Transfuse as needed * Hold antiplatelet medications and anticoagulation given severe anemia Consult Acknowledgment - Thank you for your consult request.
--- NOTE | 2017-10-09 11:51 | ULTRASOUND REPORT ---
EXAMINATION: COLOR-FLOW DUPLEX IMAGING OF THE BILATERAL LOWER EXTREMITY ARTERIAL SYSTEM. VELOCITY MEASUREMENTS THROUGHOUT THE FEMORAL ARTERIES. CLINICAL INFORMATION: 68-year-old female with diminished left lower extremity pulses. Patient is status post right lower extremity graft placement. COMPARISON: CTA bilateral lower extremity runoff 09/05/2017 RIGHT FEMORAL RUNOFF: Right common femoral artery is patent but demonstrates monophasic waveforms consistent with inflow disease. The right profundus femoris artery is patent. The grindstone right femoral artery and popliteal artery are occluded. Bypass graft of the right lower extremity extending from the right groin to the tibial peroneal trunk is widely patent. Anterior tibial artery and peroneal artery demonstrate good color Doppler flow. The dorsal pedis artery is patent. Within the right groin medial to the sutures is an approximately 5.9 x 2.2 x 5.0 cm heterogeneous avascular structure. LEFT FEMORAL RUNOFF: Left common femoral artery is patent. There is occlusion within the proximal femoral artery with reconstitution within the mid femoral artery. Waveforms throughout the left lower extremity are monophasic and velocities are diminished consistent with inflow disease. The popliteal artery, anterior and posterior tibial arteries and peroneal artery are patent but demonstrate diminished flow. Only minimal color flow is appreciated within the left dorsal pedis artery. IMPRESSION: 1. Patent right lower extremity graft. 2. Suspected approximately 6 cm hematoma of the right groin. 3. Occlusion within the proximal left superficial femoral artery with reconstitution of the mid left superficial femoral artery. Flow throughout the left lower extremity is diminished suggesting inflow disease.
--- NOTE | 2017-10-09 12:59 | Cons- Gastroenterology ---
General Information and HPI Consulting Request Date of Consult: 10/09/17 Requested By: Jeremiah Cruz MD Reason for Consult: Anemia, guaiac positive stool. Source of Information: patient, old records Exam Limitations: no limitations History of Present Illness: Ms. Clifton is a 76 year old female with a history of PVD s/p right fem-pop bypass 2 weeks ago on Xarelto who presented to today/early this morning from [facility] for reports of worsening lethargy and weakness. She underwent bypass surgery about a week ago at which point she was startd on xarelto. She notes that she has had induration and swelling at her incision site which she noticed shortly after arriving at rehab. She notes that she has had some nausea over the past week, but she has been without any vomiting and she denies any burning epigastric pain, heartburn or dysphagia. She notes that at rehab she has been constipated and she was given MOM for this with good benefit. She also notes that her stool has been dark, but she is without black tarry sticky stool and she is also without any brbpr. She also notes that her stool has been dark like that for the past month. In the ER she was hypotensive, but she wasn't tachycardic and her BP imporved with fluids. She was noted to be profoundly anemic with a fall in her hgb to 4.8 from 9 a few weeks ago and she was also noted to have dark, guaiac positive stool per the ED, but no mirian melena or red blood. Allergies/Medications Allergies: Coded Allergies: Iodinated Contrast- Oral and IV Dye (Severe, RASH 09/17/17) diazepam (Severe, ANGIODEMA 09/17/17) meperidine (Severe, ANGIODEMA 09/17/17) Home Med List: Amlodipine Besylate 10 MG TABLET 1 TAB PO DAILY BP (Reported) Aspirin ([place] Aspirin) 81 MG TABLET.DR 1 TAB PO DAILY HEARTHEALTH ( Reported) Atorvastatin Calcium 10 MG TABLET 1 TAB PO QPM CHOLESTEROL (Reported) Clopidogrel Bisulfate (Plavix) 75 MG TABLET 75 MG PO DAILY BLOOD THINNER Duloxetine HCl 60 MG CAPSULE.DR 1 CAP PO DAILY NERVE PAIN (Reported) Ferrous Sulfate 325 MG (65 MG IRON) TABLET.DR 325 MG PO TID anemai Gabapentin 100 MG CAPSULE 100 MG PO DAILY PRN ANXIETY can be increased to 300 mg 3 times a day Metoprolol Tartrate 25 MG TABLET 6.25 MG PO BID HEART HEALTH Omeprazole 20 MG CAPSULE.DR 40 MG PO DAILY AC gastritis Potassium Chloride 20 MEQ TAB.ER.PRT 1 TAB PO BID SUPPLEMENT (Reported) Ropinirole HCl 1 MG TABLET 1 TAB PO QPM RLS (Reported) Sennosides/Docusate Sodium (Senna S Tablet) 8.6 MG-50 MG TABLET 1 TAB PO QPM CONSTIPATION (Reported) Current Medications: Current Medications Sig/Rocael Start time Last Medication Dose Route Stop Time Status Admin Ceftazidime 1,000 MG Q12 10/09 0900 UNVr 10/09 IV 0841 Ceftazidime 0 .STK-MED ONE 10/09 0811 DC .ROUTE Pantoprazole Sodium 0 .STK-MED ONE 10/09 0719 DC IV Pantoprazole Sodium 40 MG Q5H 10/09 0715 UNVr 10/09 Sodium Chloride 100 ML IV 0727 Sodium Chloride 1,000 ML BOLUS ONE 10/09 0915 UNVr IV 10/09 1114 Sodium Chloride 1,000 ML BOLUS ONE 10/09 0630 DC 10/09 IV 10/09 0729 0727 Sodium Chloride 1,000 ML BOLUS ONE 10/09 0615 DC 10/09 IV 10/09 0714 0632 Vancomycin HCl 0 .STK-MED ONE 10/09 07 DC .ROUTE Vancomycin HCl 1,000 MG ONCE ONE 10/09 0630 DC 10/09 Dextrose/Water 250 ML IV 10/09 0729 0727 Past History Travel History Traveled to [place] past 21 day No Medical History Neurological: NONE EENT: allergies Cardiovascular: hypertension, hyperlipidemia Respiratory: COPD Gastrointestinal: constipation, irritable bowel syndrome Hepatic: NONE Renal: "ONE KIDNEY" Musculoskeletal: osteoporosis Psychiatric: depression Blood Disorders: HYPOKALEMIA Cancer(s): NONE 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 Denies: chills, diaphoresis, fever. EENTM: Denies: no symptoms. Cardiovascular: Reports: orthopena, palpitations. Denies: chest pain, edema, peripheral edema, syncope. Respiratory: Reports: orthopnea, short of breath. Denies: cough, hemoptysis, sputum production. GI: Reports: see HPI. Genitourinary: Denies: no symptoms. Musculoskeletal: Reports: joint pain, muscle pain. Denies: joint swelling, muscle stiffness. Skin: Denies: no symptoms. Neurological/Psychological: Denies: no symptoms. Hematologic/Endocrine: Reports: bleeding. Immunologic/Allergic: Denies: no symptoms. All Other Systems: Reviewed and Negative Exam & Diagnostic Data Vital Signs and I&O Vital Signs Date Time Temp Pulse Resp B/P B/P Pulse O2 O2 Flow FiO2 Mean Ox Delivery Rate 10/09 1120 98 Nasal 2.0L Cannula 10/09 1015 96.0 75 20 130/70 96 Nasal 2.0L Cannula 10/09 0944 72 20 137/70 96 Nasal 2.0L Cannula 10/09 0912 96.0 71 20 135/72 98 Nasal 2.0L Cannula 10/09 0845 96.4 72 20 116/58 98 Nasal 2.0L Cannula 10/09 0830 96.2 74 20 110/55 98 Nasal 2.0L Cannula 10/09 0823 72 22 110/54 95 Nasal 2.0L Cannula 10/09 0758 74 20 108/52 98 Nasal 2.0L Cannula 10/09 0737 94.4 74 20 105/55 99 Nasal 2.0L Cannula 10/09 0711 71 20 103/52 97 Nasal 2.0L Cannula 10/09 0620 92 Nasal 2.0L Cannula 10/09 0610 93.8 72 24 102/57 87 Room Air Intake & Output 10/09 1600 10/09 0400 10/08 1600 10/08 0400 10/07 1600 10/07 0400 Intake Total 2350 Output Total Balance 2350 Intake, IV 2350 Patient 111 lb Weight Weight Bed scale Measurement Method Physical Exam General Appearance: alert, awake, anxious, lethargic, mild distress, thin Head: atraumatic, + temporal wasting Eyes: Bilateral: normal appearance. Ears, Nose, Throat: normal pharynx, normal ENT inspection Neck: normal inspection, supple, full range of motion Respiratory: normal breath sounds, chest non-tender, no respiratory distress, decreased breath sounds Cardiovascular: regular rate/rhythm Gastrointestinal: normal bowel sounds, soft, non-tender, no organomegaly, incision c/d/i, but there was palpable induration and fullness Rectal: deferred, dark guaiac positive stool per ed Back: normal inspection, normal range of motion Extremities: normal inspection, no edema Neurologic/Psych: no motor/sensory deficits, awake, alert, oriented x 3 Skin: intact, pallor Results Pertinent Lab Results: Laboratory Tests 10/09 10/09 10/09 0911 0907 0615 Chemistry Lactic Acid (0.7 - 2.1 mmol/L) Cancelled 1.8 Urines Urine Color (YEL,AMB,STR) YEL Urine Clarity (CLEAR) HAZY H Urine pH (5.0 - 8.0) 6.5 Ur Specific [employer] (1.001 - 1.035) 1.020 Urine Protein (NEG,<30 MG/DL) 30 H Urine Ketones (NEG) NEG Urine Nitrite (NEG) NEG Urine Bilirubin (NEG) NEG Urine Urobilinogen (0.1 - 1.0 EU/dl) 1.0 Ur Leukocyte Esterase (NEG) TRACE H Ur Microscopic SEDIMENT EXAMINED Urine RBC (0 - 5 /HPF) 10-15 H Urine WBC (0 - 2 /HPF) 1-3 H Ur Epithelial Cells (NONE,FEW) FEW Urine Bacteria (NEG/NONE) FEW H Hyaline Casts (0/LPF) RARE H Urine Mucus (FEW,NONE) FEW Urine Hemoglobin (NEG) SMALL H Urine Glucose (N MG/DL) NEG 10/09 0615 Chemistry Sodium (137 - 145 mmol/L) 134 L Potassium (3.5 - 5.1 mmol/L) 3.8 Chloride (98 - 107 mmol/L) 105 Carbon Dioxide (22 - 30 mmol/L) 22 Anion Gap (5 - 16) 7 BUN (7 - 17 mg/dL) 21 H Creatinine (0.5 - 1.0 mg/dL) 0.7 Estimated GFR (>60 ml/min) > 60 BUN/Creatinine Ratio (7 - 25 %) 30.0 H Glucose (65 - 99 mg/dL) 167 H Calcium (8.4 - 10.2 mg/dL) 8.0 L Phosphorus (2.5 - 4.5 mg/dL) 4.0 Magnesium (1.6 - 2.3 mg/dL) 1.8 Iron (37 - 170 ug/dL) 26 L TIBC (265 - 497 ug/dL) 284 Ferritin (11.1 - 264 ng/mL) 169.0 Total Bilirubin (0.2 - 1.3 mg/dL) 0.7 Direct Bilirubin (< 0.4 mg/dL) 0.5 H AST (14 - 36 U/L) 24 ALT (9 - 52 U/L) 25 Alkaline Phosphatase (<127 U/L) 58 Troponin I (< 0.11 ng/ml) 1.26 *H Total Protein (6.3 - 8.2 g/dL) 5.0 L Albumin (3.5 - 5.0 g/dL) 2.7 L Amylase (30 - 110 U/L) 36 Lipase (23 - 300 U/L) 42 Hematology CBC w Diff NO MAN DIFF REQ WBC (4.8 - 10.8 /CUMM) 8.5 RBC (4.20 - 5.40 /CUMM) 1.58 L Hgb (12.0 - 16.0 G/DL) 4.8 *L Hct (37 - 47 %) 14.4 *L MCV (81.0 - 99.0 FL) 91.2 MCH (27.0 - 31.0 PG) 30.0 MCHC (33.0 - 37.0 G/DL) 32.9 L RDW (11.5 - 14.5 %) 16.1 H Plt Count (130 - 400 /CUMM) 302 MPV (7.4 - 10.4 FL) 8.3 Gran % (42.2 - 75.2 %) 82.0 H Lymphocytes % (20.5 - 51.1 %) 9.4 L Monocytes % (1.7 - 9.3 %) 7.9 Eosinophils % (0 - 5 %) 0.2 Basophils % (0.0 - 2.0 %) 0.5 Absolute Granulocytes (1.4 - 6.5 /CUMM) 7.0 H Absolute Lymphocytes (1.2 - 3.4 /CUMM) 0.8 L Absolute Monocytes (0.10 - 0.60 /CUMM) 0.7 H Absolute Eosinophils (0.0 - 0.7 /CUMM) 0 Absolute Basophils (0.0 - 0.2 /CUMM) 0 Retic Count (0.5 - 2.0 %) Pending Imaging/Other Studies: SERVICE DATE: 10/09/17 EXAM TYPE: US - US-BILAT LOW EXTR ARTERIAL DOP EXAMINATION: COLOR-FLOW DUPLEX IMAGING OF THE BILATERAL LOWER EXTREMITY ARTERIAL SYSTEM. VELOCITY MEASUREMENTS THROUGHOUT THE FEMORAL ARTERIES. CLINICAL INFORMATION: 68-year-old female with diminished left lower extremity pulses. Patient is status post right lower extremity graft placement. COMPARISON: CTA bilateral lower extremity runoff 09/05/2017 RIGHT FEMORAL RUNOFF: Right common femoral artery is patent but demonstrates monophasic waveforms consistent with inflow disease. The right profundus femoris artery is patent. The stebbins right femoral artery and popliteal artery are occluded. Bypass graft of the right lower extremity extending from the right groin to the tibial peroneal trunk is widely patent. Anterior tibial artery and peroneal artery demonstrate good color Doppler flow. The dorsal pedis artery is patent. Within the right groin medial to the sutures is an approximately 5.9 x 2.2 x 5.0 cm heterogeneous avascular structure. LEFT FEMORAL RUNOFF: Left common femoral artery is patent. There is occlusion within the proximal femoral artery with reconstitution within the mid femoral artery. Waveforms throughout the left lower extremity are monophasic and velocities are diminished consistent with inflow disease. The popliteal artery, anterior and posterior tibial arteries and peroneal artery are patent but demonstrate diminished flow. Only minimal color flow is appreciated within the left dorsal pedis artery. IMPRESSION: 1. Patent right lower extremity graft. 2. Suspected approximately 6 cm hematoma of the right groin. 3. Occlusion within the proximal left superficial femoral artery with reconstitution of the mid left superficial femoral artery. Flow throughout the left lower extremity is diminished suggesting inflow disease. SERVICE DATE: 10/09/17 EXAM TYPE: CAT - CT ABD & PELVIS W/O IV CONTRAS; CT CHEST WO IV CONTRAST EXAMINATION: CT CHEST WITHOUT CONTRAST CT ABDOMEN AND PELVIS WITHOUT CONTRAST CLINICAL INFORMATION: Shock COMPARISON: 09/05/2017. 01/09/2013. TECHNIQUE: Multidetector volumetric imaging was performed through the chest, abdomen and pelvis without contrast. Sagittal and coronal reformatted images were obtained on the technologist's workstation. Axial MIP volume rendering provided. DLP: 364 mGy-cm. FINDINGS: CHEST: Lungs: The central airways are patent. There is mild bronchial wall thickening bilaterally. Mild centrilobular emphysema noted. There is pleural parenchymal scarring at the bilateral apices. The extent of scarring has significantly increased since 2012. There is an irregular nodule at the posterior left apex which measures 1 cm, which is unchanged since 2013, suggesting this is a component of the scarring, series 4 image 67. Septal thickening noted at the apices. Subpleural reticulation throughout. Small bilateral pleural effusions with dependent atelectasis. There are multiple additional pulmonary nodules seen throughout the lungs, which appear new since the previous CT from 2013. For instance, there is a 0.3 cm subpleural right upper lobe nodule on series 4 image 206. 0.4 cm right upper lobe subpleural nodule on series 4 image 146. Numerous additional small nodules are seen. There is no pneumothorax. No dense consolidation. Mediastinum: The heart is normal in size. Coronary artery calcifications are present. Aortic calcifications are present. The aorta is normal in caliber. No pericardial effusion. Mildly prominent mediastinal lymph nodes are noted. For instance, there is a precarinal node with a short axis dimension of 1.1 cm, series 2 image 23. Chest Wall/Axilla: No lymphadenopathy. No chest wall mass. ABDOMEN/PELVIS: Liver, Gallbladder, Biliary Tree: The liver is normal in size, shape, and attenuation. There is a coarse calcification in the right lobe of the liver, unchanged. The multiple hypoattenuating lesions throughout the liver are again noted, better depicted on the recent prior CT with contrast. No intrahepatic biliary ductal dilatation is present. Redemonstration of a 1.1 cm calcified gallstone. No gallbladder wall thickening or pericholecystic fluid. Pancreas: Unremarkable. Spleen: Unremarkable. Adrenal Glands: Unremarkable. Kidneys and Ureters: The right kidney is atrophic and polycystic. The left kidney is hypertrophied. No hydronephrosis. There is a left midpole 0.3 cm calculus, 7 cm from the posterior axillary line. Left renal cysts are again noted. Bladder: Unremarkable. Gastrointestinal Tract: The stomach is unremarkable. The small bowel is normal in caliber without obstruction. No colonic wall thickening or inflammatory appearance. No free air or free fluid. Abdominal Wall: No significant hernia noted. Skin zak overlie the right inguinal region. Mild stranding is seen superficially. Lymphovascular Structures: Lymph nodes: Normal. Vascular: There is an aortobiiliac bypass in place. Diffuse calcification associated with both the stebbins aorta and the graft. Patency is not assessed on this noncontrast study. Pelvic Viscera: Unremarkable. OSSEOUS STRUCTURES: No suspicious sclerotic or lytic bone lesions are identified. Mild compression deformity of the L1 vertebral body is unchanged. Degenerative changes throughout the spine are mild. There is scoliotic curvature of the spine. IMPRESSION: 1. Chronic changes of the lung apices. The degree of pleural thickening and scarring has progressed since the 2013 study. There is emphysema. Bronchial wall thickening may represent chronic bronchitis, although an acute process is not excluded. Small pleural effusions are present with septal thickening. A component of edema is possible. 2. Multiple pulmonary nodules are noted, which appear new from the 2013 study, measuring up to 0.4 cm. Consider 12 month follow-up chest CT. 3. Atrophic right kidney with hypertrophied left kidney. Nonobstructing left renal calculus. 4. Diffuse vascular disease with aortobiiliac bypass in place. 5. Cholelithiasis. Assessment/Plan Assessment/Recommendations: Assessment: Ms. Art is a 76 year old female with pvd s/p fem/pop bypass a few weeks ago for which she was subsequently started on anticoagulation with xarelto who presented to this morning from short term rehab with a profound anemia which I suspect is primarlily related to surgical blood loss. She has a small hematoma appreciated on physical exam near her incision site and her US of her leg shows what appears to be a 6 cm hematoma which could certainly account for her falling hgb. She has been noted to have 'stongly' guaiac positive stool , but she is without overt melena and her BUN/Cr ratio doesn't support a diagnosis of upper gi bleeding. It would also be unusual for occult blood in the stool to result in a 4 gram hgb drop in just a few weeks albeit I suppose it is possible with the anticoagulation. Furthermore, if she was having an upper GI bleed I wouldn't expect her to require laxatives considering blood is a natural cathartic. She has some nausea, but is otherwise without any other GI complaints so while an EGD may be helpful diagnostically I don't feel it is urgent and I will therefore plan to do it once her respiratory status has been optimized and she has been adequately transfused. Recommendations: 1. Diet as tolerated for now 2. IV protonix 40 mg bid for now 3. Hold xarelto and would avoid nsaids 4. ICU monitoring and maintain 2 large bore IVs at all times 5. Vascular surgery consult for right groin hematoma 6. Notify GI for signs of overt hemodynamically significant bleeding 7. Anti-emetics as needed 8. Keep NPO after midnight for a diagnostic EGD in the am I will continue to follow this patient and make further recommendations based on her clinical course and results of tomorrows endoscopy. Problem List: 1. Upper GI bleed 2. Peripheral vascular disease Copies To: Varghese PFEIFFER,Reinier Posada. Consult Acknowledgment - Thank you for your consult request.
--- NOTE | 2017-10-09 14:47 | Cons- Vascular Surgery ---
General Information and HPI Consulting Request Date of Consult: 10/09/17 Requested By: George Cash MD Reason for Consult: Recent post op right fem-pop admitted with drop in H/H Source of Information: patient, old records Exam Limitations: no limitations History of Present Illness: Pt is a 76yo female who underwent a right fem pop with PTFE on by Dr Galarza. Her post op course was uncomplicated and she was discharged to rehab on September 29. Recently at rehab she states that she was feeling like she had decreasing energy. She became very lightheaded and her bp was noted to be in the 80's to 90's and therefore she was brought to the emergency room. Her blood pressure immediately responded to IV fluid bolus. Her troponin was noted to be increased 10 1.28 and she had EKG changes. It was felt she was suffering from demand ischemia. She was noted to have a strongly guaiac positive black tarry stool in the ED. Her H/H at that time was noted to be 4.8 and 14.4 respectively. She was noted to have a swelling in her right groin at the site of her femoral incision and therefore an ultrasound was ordered which revealed a patent bypass graft but also a suspected 6 cm hematoma of the right groin. She has had 3 units of prbc ordered and is being transfused at the time of exam. Allergies/Medications Allergies: Coded Allergies: Iodinated Contrast- Oral and IV Dye (Severe, RASH 09/17/17) diazepam (Severe, ANGIODEMA 09/17/17) meperidine (Severe, ANGIODEMA 09/17/17) Home Med List: Amlodipine Besylate 10 MG TABLET 1 TAB PO DAILY BP (Reported) Aspirin ([place] Aspirin) 81 MG TABLET.DR 1 TAB PO DAILY HEARTHEALTH ( Reported) Atorvastatin Calcium 10 MG TABLET 1 TAB PO QPM CHOLESTEROL (Reported) Duloxetine HCl 60 MG CAPSULE.DR 1 CAP PO DAILY NERVE PAIN (Reported) Oxycodone HCl/Acetaminophen (Percocet 5-325 MG Tablet) 5 MG-325 MG TABLET 1 TAB PO TID PRN PAIN (Reported) Potassium Chloride 20 MEQ TAB.ER.PRT 1 TAB PO BID SUPPLEMENT (Reported) Rivaroxaban (Xarelto) 20 MG TABLET 1 TAB PO DAILY ANTICOAGULATION with food Rivaroxaban (Xarelto) 15 MG TABLET 15 MG PO BID anticoagulation END DATE IS October AT 2100 Ropinirole HCl 1 MG TABLET 1 TAB PO QPM RLS (Reported) Sennosides/Docusate Sodium (Senna S Tablet) 8.6 MG-50 MG TABLET 1 TAB PO QPM CONSTIPATION (Reported) Past History Medical History Blood Transfusion Hx: Yes Neurological: NONE EENT: allergies Cardiovascular: hypertension, hyperlipidemia, PAD - s/p recent revision right fem-pop Respiratory: COPD Gastrointestinal: irritable bowel syndrome Hepatic: NONE Renal: "ONE KIDNEY" Musculoskeletal: osteoporosis Psychiatric: depression Endocrine: NONE Blood Disorders: NONE Cancer(s): NONE 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 Extended Care Facility Services at Home: None Smoking Status: Current Everyday Smoker Review of Systems Review of Systems: lightheaded denies headache, nausea, pain Exam & Diagnostic Data Vital Signs and I&O Vital Signs Date Time Temp Pulse Resp B/P B/P Pulse O2 O2 Flow FiO2 Mean Ox Delivery Rate 10/09 1412 Nasal 2.0L Cannula 10/09 1120 98 Nasal 2.0L Cannula 10/09 1015 96.0 75 20 130/70 96 Nasal 2.0L Cannula 10/09 0944 72 20 137/70 96 Nasal 2.0L Cannula 10/09 0912 96.0 71 20 135/72 98 Nasal 2.0L Cannula 10/09 0845 96.4 72 20 116/58 98 Nasal 2.0L Cannula 10/09 0830 96.2 74 20 110/55 98 Nasal 2.0L Cannula 10/09 0823 72 22 110/54 95 Nasal 2.0L Cannula 10/09 0758 74 20 108/52 98 Nasal 2.0L Cannula 10/09 0737 94.4 74 20 105/55 99 Nasal 2.0L Cannula 10/09 0711 71 20 103/52 97 Nasal 2.0L Cannula 10/09 0620 92 Nasal 2.0L Cannula 10/09 0610 93.8 72 24 102/57 87 Room Air Intake & Output 10/09 1600 10/09 0800 10/09 0000 10/08 1600 10/08 0800 10/08 0000 Intake Total 2350 Output Total Balance 2350 Intake, IV 2350 Patient 111 lb 79 lb 15.99 oz Weight Weight Bed scale Measurement Method Physical Exam: General: alert and oriented times three Chest: clear anteriorly bilaterally, RRR Abd: soft, good bs Ext: warm, no edema, no calf tenderness RLE - completely warm without any discoloration or lesions. Foot is warm, with palpable DP, strongly dopplerable PT. Palpable pop graft Incisions at groin and calf look good. Zak intact. No surrounding erythema or drainage. There is a palpable mass at the right groin - nontender, soft but not fluctuant, non pulsatile Assessment/Plan Assessment/Plan 76 yo female with history of PAD with recent revision fem-pop on 09/25 now admitted with a drop in H/H. Pt has been on xarelto since her previous discharge. +guaiac - black tarry stool noted in ED. Discussed with Dr Galarza Pt is currently being transfused 3u PRBC Vitals are stable Ultrasound reviewed and she has a small hematoma in the right groin but it is not large enough to warrant this drop in H/H. Will monitor hematoma but it does not need any surgical intervention at this time Hold xarelto Will keep zak at this time - plan to dc them during this admission Dr Galarza to see in am Consult Acknowledgment - Thank you for your consult request.
[2017-10-09 16:00] VITALS: BP 140/70
[2017-10-09 19:05] LABS: ABSOLUTE BASOPHIL COUNT 0 /CUMM (0.0-0.2); ABSOLUTE EOSINOPHIL COUNT 0 /CUMM (0.0-0.7); ABSOLUTE GRANULOCYTE CT 11.5 /CUMM (1.4-6.5); ABSOLUTE LYMPH COUNT 0.9 /CUMM (1.2-3.4); BASOPHIL % 0.1 % (0.0-2.0); EOSINOPHIL % 0 % (0-5); MEAN CORPUSCULAR HGB 28.9 PG (27.0-31.0); MEAN CORPUSCULAR HGB CONC 33.8 G/DL (33.0-37.0); PLATELET COUNT 358 /CUMM (130-400); RBC DISTRIBUTION WIDTH 17.8 % (11.5-14.5)
[2017-10-09 19:17] LABS: GRANULOCYTE % 85.2 % (42.2-75.2); HEMATOCRIT 29.8 % (37-47); MEAN CORPUSCULAR VOLUME 85.7 FL (81.0-99.0); RED BLOOD CELL CT 3.48 /CUMM (4.20-5.40); WHITE BLOOD CELL COUNT 13.5 /CUMM (4.8-10.8)
--- NOTE | 2017-10-09 21:33 | Event Note ---
Event Note Event Note: Mrs. Perez was admitted to ICU for acute blood loss anemia secondary to upper GI bleed, she is nothing by mouth tonight planning for endoscopy tomorrow. She received 3 units of blood transfusions, hemoglobin improved to 10.1 from 4.8. Patient was also found to have elevated troponin at the time of admission 1.26- 2.92. EKG changes-she has ST depressions V3 V4 V5 V6. Around 9:25 AM, received critical value troponin elevated up to 6.4. EKG showed normal sinus rhythm, rate 70, ST depressions V3 V4 V5 V6, no new changes compared to the prior EKGs. She has no chest pain. Off note patient reported short of breath at around 7:30 PM, after completing blood transfusionS. She received 1 dose of IV Lasix 20 mg after which her short of breath resolved. She is currently asymptomatic, no chest pain, no short of breath, no diaphoresis, no nausea, vomiting, sweating. She offers no complaints at bedside. On exam S1-S2 normal, basilar crackles were heard. * Findings consistent with NSTEMI. The presentation likely represents Type II ID precipitated by anemia in the setting of likely fixed CAD. * Discussed with the marine insurance claim examiner Dr. Brooks * No plans for IV heparin drip given her GI bleed * No plans for antiplatelet therapy like aspirin, Plavix given her GI bleed * Advised to start metoprolol 12.5 mg twice daily * We'll continue to trend her troponin and EKG * Continue to monitor for any chest pain, short of breath, nausea, vomiting, diaphoresis, CAD equivalent symptoms * Continue to alter vitals closely for now * No active signs of bleeding at the site of surgery * Notified Dr. Denys oreilly senior control systems engineer Update 11PM patient was found to have PVCs on telemetry monitoring. She received her first dose of metoprolol 12.5 mg. After receiving Lasix IV 20 mg, her urine output was almost 1250 mL. * Given her PVCs will check ICU bundle once to look for any electrolyte abnormalities. * ICU bundle follow-up at 12 AM * Replete electrolytes accordingly * Troponin and EKG follow-up at 12:30 AM
[2017-10-10] VITALS: BP 126/70
[2017-10-10 06:45] LABS: ABSOLUTE BASOPHIL COUNT 0 /CUMM (0.0-0.2); ABSOLUTE EOSINOPHIL COUNT 0 /CUMM (0.0-0.7); ABSOLUTE GRANULOCYTE CT 12.1 /CUMM (1.4-6.5); ABSOLUTE LYMPH COUNT 0.8 /CUMM (1.2-3.4); ABSOLUTE MONOCYTE COUNT 0.9 /CUMM (0.10-0.60); BASOPHIL % 0.3 % (0.0-2.0); EOSINOPHIL % 0.1 % (0-5); GRANULOCYTE % 87.3 % (42.2-75.2); MEAN CORPUSCULAR HGB 28.5 PG (27.0-31.0); MEAN CORPUSCULAR HGB CONC 33.2 G/DL (33.0-37.0); MEAN PLATELET VOLUME 8.9 FL (7.4-10.4); PLATELET COUNT 381 /CUMM (130-400); RBC DISTRIBUTION WIDTH 19.4 % (11.5-14.5); RED BLOOD CELL CT 3.84 /CUMM (4.20-5.40); WHITE BLOOD CELL COUNT 13.9 /CUMM (4.8-10.8)
--- NOTE | 2017-10-10 07:33 | PN- CRCU ---
Michaela Deleon 10/10/17 0733: Subjective HPI/Critical Care Issues: #1 acute blood loss anemia most likely multifactorial and related to recent vascular surgery/right femoral hemel #2 elevated troponin, associated EKG changes in lateral leads most likely due to demand ischemia given her severe anemia #3 severe emphysema/multiple pulmonary nodules #4 history of hypertension, hyperlipidemia #5 Rt femoral hematoma #6 peripheral arterial disease 24 hour events Patient was seen and examined this morning. She was found to be very short of breath and in respiratory distress this morning. On auscultation no crackles were heard but it seems like she might be fluid overload given 3 units of packed red cell yesterday. Stat chest x-ray was done and showed interstitial edema and 2 doses of 20 mg of IV Lasix were given and her respiratory status was slightly better. She remained afebrile with normal blood pressure. She required 4 L of oxygen to get oxygen saturation more than 95%. Her hemoglobin improved and this morning her H&H was 11.0/33.0. Her WBC count is rising slightly at 13.9 with 87.3% granulocytes. She denied any pain at hematoma site or surgical site. She denied any chest pressure or discomfort at the moment. She had multiple PVCs last night and was found to have hypokalemia which was repleted appropriately. Objective Current Medications: Current Medications Sig/Rocael Start time Last Medication Dose Route Stop Time Status Admin Albuterol Sulfate 3 ML EVERY 4 HRS/AWAKE .. 10/09 1430 AC 10/10 INH 0842 Aspirin 81 MG DAILY 10/10 1215 UNVr PO Atorvastatin Calcium 10 MG QPM 10/09 2100 AC 10/09 PO 211 Duloxetine HCl 60 MG DAILY 10/10 0900 AC 10/10 PO 0824 Furosemide 20 MG ONCE ONE 10/10 1045 DC 10/10 IV 10/10 1046 1043 Furosemide 20 MG 0900 10/10 0900 DC 10/10 IV 10/10 0901 0855 Furosemide 20 MG ONCE ONE 10/09 2014 DC 10/09 IV 10/09 Metoprolol Tartrate 12.5 MG BID 10/09 2130 AC 10/10 PO 08 Morphine Sulfate 1 MG ONCE ONE 10/10 0830 DC 10/10 IV 10/10 0831 0832 Pantoprazole Sodium 40 MG BID 10/09 2100 AC 10/10 IV 08 Potassium Chloride 80 MEQ ONCE ONE 10/10 0215 DC 10/10 PO 10/10 0216 0222 Potassium Chloride 10 MEQ Q1H 10/10 0215 DC 10/10 IV 10/10 0316 0342 Ropinirole HCl 1 MG QPM 10/09 2100 AC 10/09 PO 2115 Sodium Chloride 1,000 ML ONCE ONE 10/09 1030 DC 10/09 IV 10/10 0629 1835 Trimethobenzamide HCl 200 MG 4 TIMES/DAY PRN 10/09 1700 AC 10/09 IM 1710 Vital Signs & I&O Last 24 Hrs of Vitals and I&O: Vital Signs Date Time Temp Pulse Resp B/P B/P Pulse O2 O2 Flow FiO2 Mean Ox Delivery Rate 10/10 0853 95 Nasal 4.0L Cannula 10/10 0824 70 133/77 10/10 0800 94 Nasal 4.0L Cannula 10/10 0800 99.3 62 32 130/70 93 Nasal 4.0L Cannula 10/10 0400 92 Nasal 2.0L Cannula 10/10 0000 94 Nasal 2.0L Cannula 10/10 0000 99.9 70 24 126/70 94 Nasal 2.0L Cannula 10/09 2247 77 142/63 10/09 2042 93 Nasal 2.0L Cannula 10/09 1930 95 Nasal 2.0L Cannula 10/09 1600 97 Nasal 2.0L Cannula 10/09 1600 97.0 86 24 140/70 98 Nasal 2.0L Cannula 10/09 1412 Nasal 2.0L Cannula Intake & Output 10/10 1600 10/10 0800 10/10 0000 Intake Total 500 759 Output Total 720 1250 Balance -220 -491 Intake, Blood 350 Product Intake, IV 500 289 Intake, Oral 120 Number 0 0 Bowel Movements Output, Urine 720 1250 Exam General Appearance: alert, awake, anxious Head: atraumatic, normal appearance Neck: supple Respiratory: chest non-tender, accessory muscle use, crackles, respiratory distress Cardiovascular: regular rate/rhythm Abdomen: soft, non-tender, no organomegaly Back: normal inspection Extremities: normal inspection, cold left lower extremity with diminished pulses. Skin: normal healing wound on right lower extremity calf and right groin, status post femoropopliteal bypass. No obvious wheezing or discharge. Slight erythema but nontender. Results Last 24 Hrs of Lab Results: Laboratory Tests 10/10/17 1200: Troponin I Pending, PT Pending, INR Pending 10/10/17 0610: Troponin I 5.47 *H 10/10/17 0610: Anion Gap 11, Estimated GFR > 60, Glucose 132 H, Calcium 8.1 L, Phosphorus 2.2 L, Magnesium 1.8, Total Bilirubin 1.1, AST 64 H, ALT 40, Albumin 3.0 L, CBC w Diff MAN DIFF ORDERED, RBC 3.84 L, MCV 86.0, MCH 28.5, MCHC 33.2, RDW 19.4 H, MPV 8.9, Gran % 87.3 H, Lymphocytes % 6.0 L, Monocytes % 6.3, Eosinophils % 0.1, Basophils % 0.3, Absolute Granulocytes 12.1 H, Segmented Neutrophils 84 H , Band Neutrophils 2, Absolute Lymphocytes 0.8 L, Lymphocytes 9 L, Monocytes 5 , Absolute Monocytes 0.9 H, Absolute Eosinophils 0, Absolute Basophils 0, Platelet Estimate ADEQUATE, Polychromasia 1+, Poikilocytosis 1+, Ovalocytes 1+, Elliptocytes FEW, Fld Total RBCs Counted 100 10/10/17 0000: Anion Gap 11, Estimated GFR > 60, Glucose 127 H, Calcium 7.6 L, Phosphorus 2.8 , Magnesium 1.7, Total Bilirubin 1.1, AST 63 H, ALT 41, Troponin I 7.41 *H, Albumin 2.9 L 10/09/17 1800: Troponin I 6.42 *H, CBC w Diff NO MAN DIFF REQ, RBC 3.48 L, MCV 85.7, MCH 28.9, MCHC 33.8, RDW 17.8 H, MPV 9.0, Gran % 85.2 H, Lymphocytes % 7.0 L, Monocytes % 7.7, Eosinophils % 0, Basophils % 0.1, Absolute Granulocytes 11.5 H, Absolute Lymphocytes 0.9 L, Absolute Monocytes 1.0 H, Absolute Eosinophils 0, Absolute Basophils 0 10/09/17 1300: Troponin I Cancelled 10/09/17 1255: Troponin I 2.92 *H Diagnostic Data CXR Findings: IMPRESSION: There is hilar vascular engorgement and a relatively diffuse pattern of prominent interstitial markings involving both lungs. No overt airspace edema. There is a small right pleural effusion and right basilar subsegmental atelectasis. The possibility of superimposed consolidative disease is not definitively excluded on the basis of this examination. EKG Findings: Normal sinus rhythm, slight ST depression in lead V4 but are resolving as compared to is related to her bloody stool ultrasoundprevious EKG US Findings: IMPRESSION: 1. Patent right lower extremity graft. 2. Suspected approximately 6 cm hematoma of the right groin. 3. Occlusion within the proximal left superficial femoral artery with reconstitution of the mid left superficial femoral artery. Flow throughout the left lower extremity is diminished suggesting inflow disease. Impression/Plan Impression/Plan Impression/Plan: Mr Lyons is a 76 year old woman with a past medical history of peripheral arterial disease, hypertension, hyperlipidemia, depression, irritable bowel syndrome, status post right femoral-popliteal bypass w/ PTFE 09/25/2017 on Riveroxaban (abdominal aortic repair), COPD was sent from an F with a chief concern of weakness, fatigue and lethargy likely secondary to acute blood loss of anemia, post surgical hematoma or was post-surgical hemorrhage. At the time of [id number] 93.8 (improved to 96.4) his pulse rate 72, respiration 24, blood pressure 102/57 (improved to 116/57, 87% on room air improved to 98% on supplemental oxygen nasal cannula 2 L. Stool guaiac- EKG findings NSR, ST depressions V4-V6. Patient was admitted to ICU and will take care for the following problems. #1 acute blood loss anemia most likely multifactorial and related to recent vascular surgery/right femoral hemel #2 elevated troponin, associated EKG changes in lateral leads most likely due to demand ischemia given her severe anemia #3 severe emphysema/multiple pulmonary nodules #4 history of hypertension, hyperlipidemia #5 Rt femoral hematoma #6 peripheral arterial disease Management Respiratory: - Patient was found to be very short of breath which most likely is due to fluid overload and also her underlying emphysema is playing a role. Patient was given 40 mg of IV Lasix and also nebulizer treatment. She was recently started on beta ama and we will make sure that it's not attributing to it. -Supplemental oxygen to keep oxygen saturation more than 90%. -She has multiple pulmonary nodules that can be followed up as outpatient with annual CAT scan. ID Her WBC count is elevated to 13.9 with 87.3% granulocytes. It could be reactive but we need to rule out that she does not have any infection. Her chest x-ray didn't show any significant consolidation. As she had hematoma at her right groin which could be the source and we will request surgery evaluation if her hematoma infected at this point and needs drainage. We'll monitor white cell count daily. And also watch for any sign of infection and will panculture her in case she developed fever at any point. Cardiovascular -On admission she had elevated troponins with ST depression in lateral leads. She has history of severe peripheral vascular disease and status post femoropopliteal bypass, history of abdominal aortic aneurysm repair, her elevated troponins with the due to demand supply mismatch and type II NE precipitated by his anemia coronary artery disease. -She was discussed with cardiology and we will restart her aspirin as at this point we are not thinking that she has GI bleed. -She would need further cardiac workup in the future as outpatient including cardiac cath/stress test at some point. -She was found to be fluid overloaded clinically as well as informed on imaging study due to multiple packed red transfusions and IV fluids. She already received 40 mg of IV Lasix and we will reassess in the morning if she required further diuresis. Hematology -She is status post 3 units of packed red cell. This morning her H&H came back 11.0/33.0. We will watch for any signs of bleeding and will continue monitoring her CBC daily. -Her EGD was postponed due to her elevated troponins and dyspnea. There is no plan to do EGD in this admission until unless she would have a signs of GI bleed. -She has recent femoral detailed bypass surgery done. Vascular surgery is on board. Dr. Hicks home and he will come and see patient today. -We will discuss with vascular surgery if her hematoma needs to be drained as could be infected given her elevated WBC count. Metabolic She was found to be hypokalemic yesterday and was repleted appropriately with normal electrolytes this morning. Sodium is 141, potassium 4.1, BUNs in, creatinine 0.6, magnesium 1.8 we will replete magnesium. Daily electrolytes monitoring Alimentary We will guaiac all stools. Nausea resolved. No evidence of overt GI bleed Tolerated full liquid diet this morning and we will advance to regular diet for dinner. Neurology No neurological deficit noted Heart healthy diet Mechanical DVT prophylaxis with Alps and will ask vascular surgery if we can start her back on usual dose of xeralto otherwise we can give her pharmacological DVT prophylaxis with subcutaneous heparin. George Cash MD 10/10/17 1324: Impression/Plan Impression/Plan Impression/Plan: George Ramon M.D. have examined this patient, reviewed available EMR data, personally reviewed images, discussed with resident/PA/DIRECTOR CHEMISTRY, discussed management plan with housestaff and nursing staff, discussed managment plan all of healthcare providers, discussed management plan with patient and/or family, agreed with resident/PA/DIRECTOR CHEMISTRY. The past history and parts of the chart have been autopopulated. Impression 76 year old woman * recent fem/pop bypass, presenting with lethargy, hypotension, hypothermia and anemia in the setting of xarelto and pervious surgery * differential diagnosis includes a gi bleed, retroperitoneal bleed, hemolysis. * troponinemia Plan Respiratory -small up to 4mm nodules and emphysematous changes - f/u 12 month scan if appropriate -o2 supplementation to achieve spo2 >92% ID -mild leukocytosis maybe stress related, small hematoma post operatively, will inquire with vascular surgery if any abx coverage is needed, the wound appears clean, dry, non-tender, zak intact CVS -f/u cardiology recommendations Heme -hgb goal >8 given troponin elevation -gi consultation -cardiology consultation appreciated -xarelto is held -vascular surgery consultation appreciated Metabolic -ins/outs monitoring -creatinine monitoring Alimentary -advance diet per gi Neuro -chronic vs subacute changes reported on ct DVT prophylaxis with ALPS given anemia TTS 35 min ICU Checklist Consultations -cardiology -gastroenterology -vascular surgery Downgrade to telemetry
[2017-10-10 08:00] VITALS: BP 130/70
--- NOTE | 2017-10-10 08:38 | RADIOLOGY REPORT ---
EXAMINATION: XR PORTABLE CHEST CLINICAL INFORMATION: Pulmonary edema. Shortness of breath. COMPARISON: CT chest 10/09/2017. TECHNIQUE: Portable frontal view of the chest was obtained. FINDINGS: There is hilar vascular engorgement and a relatively diffuse pattern of interstitial markings involving both lungs. Small right pleural effusion with associated right basilar subsegmental atelectasis. Possibility of superimposed consolidative disease cannot be definitively excluded on the basis of this examination. The cardiac silhouette and upper mediastinal contours are normal. No acute osseous finding. IMPRESSION: There is hilar vascular engorgement and a relatively diffuse pattern of prominent interstitial markings involving both lungs. No overt airspace edema. There is a small right pleural effusion and right basilar subsegmental atelectasis. The possibility of superimposed consolidative disease is not definitively excluded on the basis of this examination.
--- NOTE | 2017-10-10 11:12 | PN- Cardiology ---
Subjective Subjective: The patient is feeling mostly well. She complains of intermittent mild epigastric discomfort which lasts for a few minutes at a time and varies up to a 3 out of 10 in severity. She now reports that she was having this epigastric discomfort since prior to her previous hospital admission. She had mild shortness of breath after transfusion yesterday which improved with 20 mg of IV Lasix. No palpitations. No diaphoresis. No syncope. No nausea or vomiting Objective Vital Signs and I&Os Vital Signs Date Time Temp Pulse Resp B/P B/P Pulse O2 O2 Flow FiO2 Mean Ox Delivery Rate 10/10 0853 95 Nasal 4.0L Cannula 10/10 08 70 133/77 10/10 0800 94 Nasal 4.0L Cannula 10/10 0800 99.3 62 32 130/70 93 Nasal 4.0L Cannula 10/10 0400 92 Nasal 2.0L Cannula 10/10 0000 94 Nasal 2.0L Cannula 10/10 0000 99.9 70 24 126/70 94 Nasal 2.0L Cannula 10/09 2247 77 142/63 10/09 2042 93 Nasal 2.0L Cannula 10/09 1930 95 Nasal 2.0L Cannula 10/09 1600 97 Nasal 2.0L Cannula 10/09 1600 97.0 86 24 140/70 98 Nasal 2.0L Cannula 10/09 1412 Nasal 2.0L Cannula 10/09 1120 98 Nasal 2.0L Cannula Intake & Output 10/10 1600 10/10 0800 10/10 0000 10/09 1600 10/09 0800 10/09 0000 Intake Total 500 005 512 1402 Output Total 720 1250 300 Balance -220 -207 610 1601 Intake, Blood 350 700 Product Intake, IV 500 074 64 7588 Intake, Oral 120 Number 0 0 Bowel Movements Output, Urine 720 1250 300 Patient 111 lb 79 lb 15.99 oz Weight Weight Bed scale Measurement Method Physical Exam: Gen: The patient is in no acute distress HEENT: Normal nose, ears, and oropharynx. Pupils equal bilaterally. Conjunctiva normal. Neck: Supple with no JVD, no masses, and no thyromegaly Lungs: Clear to auscultation with normal respiratory effort Heart: RRR, S1, S2, no murmurs. No peripheral edema, 1+ pulses in the lower extremities bilaterally Abdomen: Soft, nontender, no masses. No hepatomegaly. No splenomegaly Extremities: No clubbing or cyanosis. Normal muscle strength in the upper and lower extremities Skin: Normal skin turgor with no skin ulcers or lesions noted. Current Medications: Current Medications Sig/Rocael Start time Last Medication Dose Route Stop Time Status Admin Albuterol Sulfate 3 ML EVERY 4 HRS/AWAKE .. 10/09 1430 AC 10/10 INH 0842 Atorvastatin Calcium 10 MG QPM 10/09 2100 AC 10/09 PO 2115 Duloxetine HCl 60 MG DAILY 10/10 0900 AC 10/10 PO 0824 Furosemide 20 MG ONCE ONE 10/10 1045 DC 10/10 IV 10/10 1046 1043 Furosemide 20 MG 0900 10/10 0900 DC 10/10 IV 10/10 0901 0855 Furosemide 20 MG ONCE ONE 10/09 2014 DC 10/09 IV 10/09 Metoprolol Tartrate 12.5 MG BID 10/09 2130 AC 10/10 PO 0824 Morphine Sulfate 1 MG ONCE ONE 10/10 0830 DC 10/10 IV 10/10 0831 0832 Pantoprazole Sodium 40 MG BID 10/09 2100 AC 10/10 IV 0824 Pantoprazole Sodium 40 MG Q5H 10/09 0715 DC 10/09 Sodium Chloride 100 ML IV 10/09 1200 0727 Potassium Chloride 80 MEQ ONCE ONE 10/10 0215 DC 10/10 PO 10/10 0216 0222 Potassium Chloride 10 MEQ Q1H 10/10 0215 DC 10/10 IV 10/10 0316 0342 Ropinirole HCl 1 MG QPM 10/09 2100 AC 10/09 PO 2115 Sodium Chloride 1,000 ML ONCE ONE 10/09 1030 DC 10/09 IV 10/10 0629 1835 Sodium Chloride 1,000 ML BOLUS ONE 10/09 0915 DC 10/09 IV 10/09 1114 0919 Trimethobenzamide HCl 200 MG 4 TIMES/DAY PRN 10/09 1700 AC 10/09 IM 1710 Trimethobenzamide HCl 200 MG ONCE ONE 10/09 1130 DC 10/09 IM 10/09 1131 1125 Results Last 48 Hrs of Labs/Mics: Laboratory Tests 10/10/17 0610: Troponin I 5.47 *H 10/10/17 0610: Anion Gap 11, Estimated GFR > 60, Glucose 132 H, Calcium 8.1 L, Phosphorus 2.2 L, Magnesium 1.8, Total Bilirubin 1.1, AST 64 H, ALT 40, Albumin 3.0 L, CBC w Diff MAN DIFF ORDERED, RBC 3.84 L, MCV 86.0, MCH 28.5, MCHC 33.2, RDW 19.4 H, MPV 8.9, Gran % 87.3 H, Lymphocytes % 6.0 L, Monocytes % 6.3, Eosinophils % 0.1, Basophils % 0.3, Absolute Granulocytes 12.1 H, Segmented Neutrophils 84 H , Band Neutrophils 2, Absolute Lymphocytes 0.8 L, Lymphocytes 9 L, Monocytes 5 , Absolute Monocytes 0.9 H, Absolute Eosinophils 0, Absolute Basophils 0, Platelet Estimate ADEQUATE, Polychromasia 1+, Poikilocytosis 1+, Ovalocytes 1+, Elliptocytes FEW, Fld Total RBCs Counted 100 10/10/17 0000: Anion Gap 11, Estimated GFR > 60, Glucose 127 H, Calcium 7.6 L, Phosphorus 2.8 , Magnesium 1.7, Total Bilirubin 1.1, AST 63 H, ALT 41, Troponin I 7.41 *H, Albumin 2.9 L 10/09/17 1800: Troponin I 6.42 *H, CBC w Diff NO MAN DIFF REQ, RBC 3.48 L, MCV 85.7, MCH 28.9, MCHC 33.8, RDW 17.8 H, MPV 9.0, Gran % 85.2 H, Lymphocytes % 7.0 L, Monocytes % 7.7, Eosinophils % 0, Basophils % 0.1, Absolute Granulocytes 11.5 H, Absolute Lymphocytes 0.9 L, Absolute Monocytes 1.0 H, Absolute Eosinophils 0, Absolute Basophils 0 10/09/17 1300: Troponin I Cancelled 10/09/17 1255: Troponin I 2.92 *H 10/09/17 0911: Lactic Acid Cancelled 10/09/17 0907: Urine Color YEL, Urine Clarity HAZY H, Urine pH 6.5, Ur Specific [place] 1.020, Urine Protein 30 H, Urine Ketones NEG, Urine Nitrite NEG, Urine Bilirubin NEG, Urine Urobilinogen 1.0, Ur Leukocyte Esterase TRACE H, Ur Microscopic SEDIMENT EXAMINED, Urine RBC 10-15 H, Urine WBC 1-3 H, Ur Epithelial Cells FEW, Urine Bacteria FEW H, Hyaline Casts RARE H, Urine Mucus FEW, Urine Hemoglobin SMALL H, Urine Glucose NEG 10/09/17 0615: Lactic Acid 1.8 10/09/17 0615: Anion Gap 7, Estimated GFR > 60, BUN/Creatinine Ratio 30.0 H, Glucose 167 H, Calcium 8.0 L, Phosphorus 4.0, Magnesium 1.8, Iron 26 L, TIBC 284, Ferritin 169.0, Total Bilirubin 0.7, Direct Bilirubin 0.5 H, AST 24, ALT 25, Alkaline Phosphatase 58, Troponin I 1.26 *H, Total Protein 5.0 L, Albumin 2.7 L, Amylase 36, Lipase 42, CBC w Diff NO MAN DIFF REQ, RBC 1.58 L, MCV 91.2, MCH 30.0, MCHC 32.9 L, RDW 16.1 H, MPV 8.3, Gran % 82.0 H, Lymphocytes % 9.4 L, Monocytes % 7.9, Eosinophils % 0.2, Basophils % 0.5, Absolute Granulocytes 7.0 H, Absolute Lymphocytes 0.8 L, Absolute Monocytes 0.7 H, Absolute Eosinophils 0, Absolute Basophils 0, Retic Count 10.20 H Microbiology 10/09 1050 UPPER RESP: Surveillance Culture - COMP 10/09 1050 GI: Surveillance Culture - COMP Recent Imaging Studies: Chest x-ray: There is hilar vascular engorgement and a relatively diffuse pattern of prominent interstitial markings involving both lungs. No overt airspace edema. There is a small right pleural effusion and right basilar subsegmental atelectasis. The possibility of superimposed consolidative disease is not definitively excluded on the basis of this examination. Assessment/Plan Assessment/Plan Assessment: 1. Peripheral arterial disease, status post femoropopliteal bypass 2. History of AAA repair 3. Severe anemia secondary to blood loss on anticoagulation. Guaiac positive but no evidence of overt GI bleed. Anemia more likely secondary to surgical blood loss. 4. Elevated troponin with mild chest discomfort consistent with non-ST elevation myocardial infarction. Likely type II GA precipitated by severe anemia in the setting of fixed CAD Plan: * Restart aspirin 81 mg daily * Anticoagulation on hold for recent acute bleeding. Would check with vascular surgery regarding plans for long-term anticoagulation * Echocardiogram * Will need further workup for ischemia at some point, however cardiac catheterization contraindicated for now given recent unexplained blood loss and severe anemia. * IV Lasix given today for volume overload secondary to transfusions and IV fluids. Will reevaluate need for further doses of Lasix tomorrow Continue telemetry? Yes
--- NOTE | 2017-10-10 11:38 | PN- Gastroenterology ---
Assessment/Plan GI Assessment/Recommendations: Assessment: Ms. Clifton is a 76 year old female with PVD s/p fem pop bypass a few weeks ago admitted with acute blood loss anemia which I feel is primarily related to the hematoma from her recent surgery which was likely exacerbated by the xarelto she was started on after the surgery. There were tentative plans to pursue an endoscopy today to rule out a GI source of her anemia considering her guaiac positive stool and dyspeptic symptoms, but considering her elevated troponin to almost 7 now along with her ongoing shortness of breath I am reluctant to subject her to conscious sedation unless it is absolutely necessary. So as her hgb has responded appropriately to transfusion, she has another source of anemia (the hematoma), her BUN/cr ratio isn't elevated and she has not had any overt Gi bleeding since she has been admitted I don't feel it is absolutely necessary. Recommendations; 1. Advance diet as tolerated 2. D/C IV protonix and place on an oral ppi for gi prophylaxis 3. Avoid otc nsaids, but ok to start asa if indicated from a cardiac perspective 4. Will cancel the EGD and will only plan to do it should she develop hemodynamically significant overt GI bleeding and would ask that GI be contacted should this occur. 5. There are no absolute Gi contraindications to restarting her anti-coagulaion if it is medically indicated, but this may be limited by her hematoma Will sign off at this time and ask that GI be reconsulted for any active bleeding or any other GI issues that may arise while she is admitted. Problem List: 1. Weakness Subjective Subjective: pt with some nausea, but no vomiting or abdomimal pain. she has also been without any brbpr or melena. still with some SOB. no cough or sputum. she has received 3 units of PRBCs Objective Vital Signs and I&Os Vital Signs Date Time Temp Pulse Resp B/P B/P Pulse O2 O2 Flow FiO2 Mean Ox Delivery Rate 10/10 0853 95 Nasal 4.0L Cannula 10/11 823 70 133/77 10/10 0800 94 Nasal 4.0L Cannula 10/10 08 99.3 62 32 130/70 93 Nasal 4.0L Cannula 10/10 0400 92 Nasal 2.0L Cannula 10/10 0000 94 Nasal 2.0L Cannula 10/10 0000 99.9 70 24 126/70 94 Nasal 2.0L Cannula 10/09 2247 77 142/63 10/09 2042 93 Nasal 2.0L Cannula 10/09 1930 95 Nasal 2.0L Cannula 10/09 1600 97 Nasal 2.0L Cannula 10/09 1600 97.0 86 24 140/70 98 Nasal 2.0L Cannula 10/09 1412 Nasal 2.0L Cannula Intake & Output 10/10 1600 10/10 0400 10/09 1600 10/09 0400 10/08 1600 10/08 0400 Intake Total 942 484 6520 Output Total 720 1250 300 Balance -220 -491 2799 Intake, Blood 350 700 Product Intake, IV 721 548 8718 Intake, Oral 120 Number 0 0 Bowel Movements Output, Urine 720 1250 300 Patient 111 lb Weight Weight Bed scale Measurement Method Physical Exam General Appearance: anxious, mild distress, thin Head: atraumatic Respiratory: decreased breath sounds Cardiovascular: regular rate/rhythm Abdomen: normal bowel sounds, soft, non-tender, no organomegaly Extremities: no edema Neurologic/Psychiatric: no motor/sensory deficits, awake, alert, oriented x 3 Skin: intact Current Medications: Current Medications Sig/Rocael Start time Last Medication Dose Route Stop Time Status Admin Albuterol Sulfate 3 ML EVERY 4 HRS/AWAKE .. 10/09 1430 AC 10/10 INH 0842 Atorvastatin Calcium 10 MG QPM 10/09 2100 AC 10/09 PO 211 Duloxetine HCl 60 MG DAILY 10/10 0900 AC 10/10 PO 0824 Furosemide 20 MG ONCE ONE 10/10 1045 DC 10/10 IV 10/10 1046 1043 Furosemide 20 MG 0900 10/10 0900 DC 10/10 IV 10/10 0901 0855 Furosemide 20 MG ONCE ONE 10/09 2014 DC 10/09 IV 10/09 Metoprolol Tartrate 12.5 MG BID 10/09 2130 AC 10/10 PO 0824 Morphine Sulfate 1 MG ONCE ONE 10/10 0830 DC 10/10 IV 10/10 0831 0832 Pantoprazole Sodium 40 MG BID 10/09 2100 AC 10/10 IV 0824 Pantoprazole Sodium 40 MG Q5H 10/09 0715 DC 10/09 Sodium Chloride 100 ML IV 10/09 1200 0727 Potassium Chloride 80 MEQ ONCE ONE 10/10 0215 DC 10/10 PO 10/10 0216 0222 Potassium Chloride 10 MEQ Q1H 10/10 0215 DC 10/10 IV 10/10 0316 0342 Ropinirole HCl 1 MG QPM 10/09 2100 AC 10/09 PO 2115 Sodium Chloride 1,000 ML ONCE ONE 10/09 1030 DC 10/09 IV 10/10 0629 1835 Trimethobenzamide HCl 200 MG 4 TIMES/DAY PRN 10/09 1700 AC 10/09 IM 1710 Results Pertinent Lab Results: Laboratory Tests 10/10 10/10 10/10 0610 0610 0000 Chemistry Sodium (137 - 145 mmol/L) 141 141 Potassium (3.5 - 5.1 mmol/L) 4.1 2.9 *L Chloride (98 - 107 mmol/L) 110 H 109 H Carbon Dioxide (22 - 30 mmol/L) 21 L 21 L Anion Gap (5 - 16) 11 11 BUN (7 - 17 mg/dL) 16 16 Creatinine (0.5 - 1.0 mg/dL) 0.6 0.6 Estimated GFR (>60 ml/min) > 60 > 60 Glucose (65 - 99 mg/dL) 132 H 127 H Calcium (8.4 - 10.2 mg/dL) 8.1 L 7.6 L Phosphorus (2.5 - 4.5 mg/dL) 2.2 L 2.8 Magnesium (1.6 - 2.3 mg/dL) 1.8 1.7 Total Bilirubin (0.2 - 1.3 mg/dL) 1.1 1.1 AST (14 - 36 U/L) 64 H 63 H ALT (9 - 52 U/L) 40 41 Troponin I (< 0.11 ng/ml) 5.47 *H 7.41 *H Albumin (3.5 - 5.0 g/dL) 3.0 L 2.9 L Hematology CBC w Diff MAN DIFF ORDERED WBC (4.8 - 10.8 /CUMM) 13.9 H RBC (4.20 - 5.40 /CUMM) 3.84 L Hgb (12.0 - 16.0 G/DL) 11.0 L Hct (37 - 47 %) 33.0 L MCV (81.0 - 99.0 FL) 86.0 MCH (27.0 - 31.0 PG) 28.5 MCHC (33.0 - 37.0 G/DL) 33.2 RDW (11.5 - 14.5 %) 19.4 H Plt Count (130 - 400 /CUMM) 381 MPV (7.4 - 10.4 FL) 8.9 Gran % (42.2 - 75.2 %) 87.3 H Lymphocytes % (20.5 - 51.1 %) 6.0 L Monocytes % (1.7 - 9.3 %) 6.3 Eosinophils % (0 - 5 %) 0.1 Basophils % (0.0 - 2.0 %) 0.3 Absolute Granulocytes (1.4 - 6.5 /CUMM) 12.1 H Segmented Neutrophils (42.2 - 75.2 %) 84 H Band Neutrophils (0.0 - 5.0 %) 2 Absolute Lymphocytes (1.2 - 3.4 /CUMM) 0.8 L Lymphocytes (20.5 - 51.1 %) 9 L Monocytes (1.7 - 9.3 %) 5 Absolute Monocytes (0.10 - 0.60 /CUMM) 0.9 H Absolute Eosinophils (0.0 - 0.7 /CUMM) 0 Absolute Basophils (0.0 - 0.2 /CUMM) 0 Platelet Estimate (ADEQUATE) ADEQUATE Polychromasia 1+ Poikilocytosis 1+ Ovalocytes 1+ Elliptocytes FEW Other Body Source Fld Total RBCs Counted (%) 100 10/09 10/09 10/09 1800 1300 1255 Chemistry Troponin I (< 0.11 ng/ml) 6.42 *H Cancelled 2.92 *H Hematology CBC w Diff NO MAN DIFF REQ WBC (4.8 - 10.8 /CUMM) 13.5 H RBC (4.20 - 5.40 /CUMM) 3.48 L Hgb (12.0 - 16.0 G/DL) 10.1 L Hct (37 - 47 %) 29.8 L MCV (81.0 - 99.0 FL) 85.7 MCH (27.0 - 31.0 PG) 28.9 MCHC (33.0 - 37.0 G/DL) 33.8 RDW (11.5 - 14.5 %) 17.8 H Plt Count (130 - 400 /CUMM) 358 MPV (7.4 - 10.4 FL) 9.0 Gran % (42.2 - 75.2 %) 85.2 H Lymphocytes % (20.5 - 51.1 %) 7.0 L Monocytes % (1.7 - 9.3 %) 7.7 Eosinophils % (0 - 5 %) 0 Basophils % (0.0 - 2.0 %) 0.1 Absolute Granulocytes (1.4 - 6.5 /CUMM) 11.5 H Absolute Lymphocytes (1.2 - 3.4 /CUMM) 0.9 L Absolute Monocytes (0.10 - 0.60 /CUMM) 1.0 H Absolute Eosinophils (0.0 - 0.7 /CUMM) 0 Absolute Basophils (0.0 - 0.2 /CUMM) 0 10/09 10/09 10/09 0911 0907 0615 Chemistry Lactic Acid (0.7 - 2.1 mmol/L) Cancelled 1.8 Urines Urine Color (YEL,AMB,STR) YEL Urine Clarity (CLEAR) HAZY H Urine pH (5.0 - 8.0) 6.5 Ur Specific [place] (1.001 - 1.035) 1.020 Urine Protein (NEG,<30 MG/DL) 30 H Urine Ketones (NEG) NEG Urine Nitrite (NEG) NEG Urine Bilirubin (NEG) NEG Urine Urobilinogen (0.1 - 1.0 EU/dl) 1.0 Ur Leukocyte Esterase (NEG) TRACE H Ur Microscopic SEDIMENT EXAMINED Urine RBC (0 - 5 /HPF) 10-15 H Urine WBC (0 - 2 /HPF) 1-3 H Ur Epithelial Cells (NONE,FEW) FEW Urine Bacteria (NEG/NONE) FEW H Hyaline Casts (0/LPF) RARE H Urine Mucus (FEW,NONE) FEW Urine Hemoglobin (NEG) SMALL H Urine Glucose (N MG/DL) NEG 10/09 0615 Chemistry Sodium (137 - 145 mmol/L) 134 L Potassium (3.5 - 5.1 mmol/L) 3.8 Chloride (98 - 107 mmol/L) 105 Carbon Dioxide (22 - 30 mmol/L) 22 Anion Gap (5 - 16) 7 BUN (7 - 17 mg/dL) 21 H Creatinine (0.5 - 1.0 mg/dL) 0.7 Estimated GFR (>60 ml/min) > 60 BUN/Creatinine Ratio (7 - 25 %) 30.0 H Glucose (65 - 99 mg/dL) 167 H Calcium (8.4 - 10.2 mg/dL) 8.0 L Phosphorus (2.5 - 4.5 mg/dL) 4.0 Magnesium (1.6 - 2.3 mg/dL) 1.8 Iron (37 - 170 ug/dL) 26 L TIBC (265 - 497 ug/dL) 284 Ferritin (11.1 - 264 ng/mL) 169.0 Total Bilirubin (0.2 - 1.3 mg/dL) 0.7 Direct Bilirubin (< 0.4 mg/dL) 0.5 H AST (14 - 36 U/L) 24 ALT (9 - 52 U/L) 25 Alkaline Phosphatase (<127 U/L) 58 Troponin I (< 0.11 ng/ml) 1.26 *H Total Protein (6.3 - 8.2 g/dL) 5.0 L Albumin (3.5 - 5.0 g/dL) 2.7 L Amylase (30 - 110 U/L) 36 Lipase (23 - 300 U/L) 42 Hematology CBC w Diff NO MAN DIFF REQ WBC (4.8 - 10.8 /CUMM) 8.5 RBC (4.20 - 5.40 /CUMM) 1.58 L Hgb (12.0 - 16.0 G/DL) 4.8 *L Hct (37 - 47 %) 14.4 *L MCV (81.0 - 99.0 FL) 91.2 MCH (27.0 - 31.0 PG) 30.0 MCHC (33.0 - 37.0 G/DL) 32.9 L RDW (11.5 - 14.5 %) 16.1 H Plt Count (130 - 400 /CUMM) 302 MPV (7.4 - 10.4 FL) 8.3 Gran % (42.2 - 75.2 %) 82.0 H Lymphocytes % (20.5 - 51.1 %) 9.4 L Monocytes % (1.7 - 9.3 %) 7.9 Eosinophils % (0 - 5 %) 0.2 Basophils % (0.0 - 2.0 %) 0.5 Absolute Granulocytes (1.4 - 6.5 /CUMM) 7.0 H Absolute Lymphocytes (1.2 - 3.4 /CUMM) 0.8 L Absolute Monocytes (0.10 - 0.60 /CUMM) 0.7 H Absolute Eosinophils (0.0 - 0.7 /CUMM) 0 Absolute Basophils (0.0 - 0.2 /CUMM) 0 Retic Count (0.5 - 2.0 %) 10.20 H
[2017-10-10 12:33] LABS: PT 14.1 SEC (9.4-12.5)
--- NOTE | 2017-10-10 12:45 | ECHOCARDIOGRAM REPORT ---
GUSTAVO MANSFIELD Age: 76 : 1940 Gender: F Exam Date: 10/09/2017 18:35 Exam Location: [facility] Ht (in): 59 Wt (lb): 80 BSA: 1.22 BP: 130 / 70 Ordering Physician: Fernie Vaughn MD Referring Physician: Nav Brooks MD Technologist: Philomena Hernandez [facility] Room Number: 111 Indications: MYOCARDIAL ISCHEMIA/SC Rhythm: Sinus Technical Quality: Technically difficult study FINDINGS Left Ventricle Normal size left ventricle. Left ventricular ejection fraction is estimated at 55%. No obvious regional wall motion abnormalities. Normal left ventricular wall thickness. Right Ventricle Normal right ventricular size and function. Right Atrium Normal right atrial size. Left Atrium Normal left atrial size. Mitral Valve Mitral valve thickened. Moderate mitral regurgitation. Aortic Valve Diffuse thickening (sclerosis) of the aortic valve cusps without reduced excursion. No aortic stenosis. No aortic regurgitation. Tricuspid Valve Tricuspid valve not well visualized, grossly normal. Mild tricuspid regurgitation. Right ventricular systolic pressure estimated to be elevated at 53 mmHg. Pulmonic Valve Pulmonic valve not well visualized, grossly normal. Mild pulmonic regurgitation. Pericardium No pericardial effusion. Great Vessels Normal size aortic root. CONCLUSIONS Normal size left ventricle. Left ventricular ejection fraction is estimated at 55%. No obvious regional wall motion abnormalities. Moderate mitral regurgitation. Nav Brooks M.D. (Electronically Signed) Final Date: 10 October 2017 12:44 MEASUREMENTS (Male / Female) Normal Values 2D ECHO LV Diastolic Diameter PLAX 4.3 cm 4.2 - 5.9 / 3.9 - 5.3 cm LV Systolic Diameter PLAX 3.0 cm 2.1 - 4.0 cm LV Fractional Shortening PLAX 30.2 % 25 - 46 % LV Ejection Fraction 2D Teich 57.9 % IVS Diastolic Thickness 1.0 cm LVPW Diastolic Thickness 1.0 cm LV Relative Wall Thickness 0.5 RV Internal Dim ED PLAX 2.5 cm 1.9 - 3.8 cm LVOT Diameter 1.7 cm Aortic Root Diameter 2.4 cm LA Systolic Diameter LX 2.9 cm 3.0 - 4.0 / 2.7 - 3.8 cm LA Volume 49.0 cm 18 - 58 / 22 - 52 cm Ascending Aorta Diameter 2.3 cm DOPPLER AV Peak Velocity 172.0 cm/s AV Peak Gradient 11.8 mmHg AV Mean Velocity 106.0 cm/s AV Mean Gradient 5.0 mmHg AV Velocity Time Integral 38.2 cm LVOT Peak Velocity 139.0 cm/s LVOT Peak Gradient 7.7 mmHg LVOT Mean Velocity 80.9 cm/s LVOT Mean Gradient 3.0 mmHg LVOT Velocity Time Integral 26.5 cm LVOT Stroke Volume 60.1 cm AV Area Cont Eq vti 1.6 cm AV Area Cont Eq pk 1.8 cm MV Peak Velocity 149.0 cm/s MV Peak Gradient 8.9 mmHg MV Mean Velocity 72.2 cm/s MV Mean Gradient 2.5 mmHg Mitral E Point Velocity 136.0 cm/s Mitral A Point Velocity 67.3 cm/s Mitral E to A Ratio 2.0 MV PHT Velocity 161.0 cm/s MV Deceleration [place] 750.0 cm/s MV Pressure Half Time 64.4 ms MV Area PHT 3.4 cm MV Deceleration Time 236.0 ms MR Peak Velocity 579.0 cm/s MR Peak Gradient 134.1 mmHg MR ERO PISA 0.2 cm MR Regurgitant Volume PISA 25.5 cm TR Peak Velocity 347.0 cm/s TR Peak Gradient 48.2 mmHg Right Atrial Pressure 5.0 mmHg Pulmonary Artery Systolic Pressu 53.2 mmHg Right Ventricular Systolic Press 53.2 mmHg PV Peak Velocity 141.0 cm/s PV Peak Gradient 8.0 mmHg PV Mean Velocity 94.5 cm/s PV Mean Gradient 4.0 mmHg PV Velocity Time Integral 25.0 cm LV E' Lateral Velocity 13.4 cm/s Mitral E to LV E' Lateral Ratio 10.1 LV E' Septal Velocity 7.8 cm/s Mitral E to LV E' Septal Ratio 17.5
--- NOTE | 2017-10-10 15:44 | PN- Vascular Surgery ---
Surgical Brief Attending Note Brief Attending Note: Admitted for GIB. Has had dark stool for a few weeks Responded to PRBC transfusion S/P right fem-pop with PTFE in early September. Was started on Xeralto postop for bypass Noncontrast CT showed 5cm right groin hematoma. No stranding. Arterial ultrasound showed patent bypass Clinically, there is no erythema/warmth over the right groin. There is no tenderness According to the patient, She had a bigger "lump" in the right groin but it has now decreased in size since she stopped xeralto. GI not planning on scope. From the vascular standpoint, the bypass is open. There is a hematoma in the right groin. There is no evidence of right groin infection clinically or by CT. Recommend not to resume xeralto. Instead start on aspirin and plavix.
[2017-10-10 16:00] VITALS: BP 132/72
[2017-10-10 22:34] VITALS: BP 123/59
--- NOTE | 2017-10-10 23:07 | Event Note ---
Event Note Event Note: Mrs. Perez had dark black bowel movement around 11 PM, which was guaiac- positive. She denied any nausea, vomiting, epigastric abdomen pain. Vitals were within normal limits, pulse rate 64, respiratory rate 24, blood pressure 130/65, saturating at 94 on 2 L. She is hemodynamically stable with no active GI bleed. No fresh blood per rectum. * We will follow up hemoglobin and hematocrit at 5 AM * If there is any change in hemoglobin will notify GI stat * Will call GI overnight if she develops hemodynamically significant overt GI bleeding
[2017-10-11 05:00] LABS: ABSOLUTE BASOPHIL COUNT 0 /CUMM (0.0-0.2); ABSOLUTE EOSINOPHIL COUNT 0 /CUMM (0.0-0.7); ABSOLUTE GRANULOCYTE CT 9.8 /CUMM (1.4-6.5); BASOPHIL % 0.1 % (0.0-2.0); EOSINOPHIL % 0.1 % (0-5); GRANULOCYTE % 82.9 % (42.2-75.2); HEMATOCRIT 28.2 % (37-47); MEAN CORPUSCULAR HGB 28.7 PG (27.0-31.0); MEAN CORPUSCULAR VOLUME 84.6 FL (81.0-99.0); MEAN PLATELET VOLUME 8.8 FL (7.4-10.4); PLATELET COUNT 301 /CUMM (130-400); RBC DISTRIBUTION WIDTH 19.5 % (11.5-14.5); RED BLOOD CELL CT 3.34 /CUMM (4.20-5.40); WHITE BLOOD CELL COUNT 11.8 /CUMM (4.8-10.8)
--- NOTE | 2017-10-11 07:27 | PN- CRCU ---
Michaela Deleon 10/11/17 0727: Subjective HPI/Critical Care Issues: #1 acute blood loss anemia most likely multifactorial and related to recent vascular surgery/right femoral hematoma/upper JOSELYN is also a possibility. #2 elevated troponin, associated EKG changes in lateral leads most likely due to demand ischemia given her severe anemia #3 severe emphysema/multiple pulmonary nodules/bilateral pleural effusion right more than left #4 history of hypertension, hyperlipidemia #5 Rt femoral hematoma #6 peripheral arterial disease 24 hour events Patient was seen and examined this morning. She was lying comfortably on bed and she still is slight short of breath but her respiratory status is better than yesterday requiring 2-3 L of oxygen which was 4 L yesterday. She was not using accessory muscles and able to speak in full sentences. She denied any chest pain, pain at surgery site, any palpitations, nausea or diarrhea. Patient had a black bowel movement which was soft and liquidy this morning which was guaiac positive. She dropped her hemoglobin from 11.0 to 9.6 and hematocrit for 33 to 28.2. Her WBC count also dropped from 13.9-11.8. She remained hemodynamically stable with blood pressure systolic ranges from 120s to 130s. She was found to have sinus bradycardia with heart rate ranges from 50s to 60s. Objective Current Medications: Current Medications Sig/Rocael Start time Last Medication Dose Route Stop Time Status Admin Albuterol Sulfate 3 ML EVERY 4 HRS/AWAKE .. 10/09 1430 AC 10/10 INH 0842 Aspirin 81 MG DAILY 10/10 1215 DC 10/10 PO 1237 Atorvastatin Calcium 10 MG QPM 10/09 2100 AC 10/10 PO 2153 Clopidogrel Bisulfate 75 MG DAILY 10/10 1530 DC 10/10 PO 1631 Duloxetine HCl 60 MG DAILY 10/10 0900 AC 10/11 PO 0928 Furosemide 20 MG ONCE ONE 10/11 1000 DC 10/11 IV 10/11 1001 1034 Magnesium Oxide 400 MG 1245 10/10 1245 DC 10/10 PO 10/10 1246 1237 Metoprolol Tartrate 12.5 MG BID 10/09 2130 DC 10/10 PO 2155 Morphine Sulfate 1 MG ONCE ONE 10/10 1630 DC 10/10 IV 10/10 1631 1631 Pantoprazole Sodium 40 MG BID 10/09 2100 AC 10/11 IV 0928 Potassium Chloride 40 MEQ 1245 10/10 1245 AC 10/10 PO 1238 Potassium Phosphate 15 mMol ONE ONE 10/11 0800 AC 10/11 Dextrose/Water 250 ML IV 10/11 1204 0928 Ropinirole HCl 1 MG QPM 10/09 2100 AC 10/10 PO 1620 Trimethobenzamide HCl 200 MG 4 TIMES/DAY PRN 10/09 1700 AC 10/09 IM 1710 Vital Signs & I&O Last 24 Hrs of Vitals and I&O: Vital Signs Date Time Temp Pulse Resp B/P B/P Pulse O2 O2 Flow FiO2 Mean Ox Delivery Rate 10/11 0844 97.9 54 20 120/70 94 Nasal 3.0L Cannula 10/11 0800 94 Nasal 2.0L Cannula 10/11 0000 94 Nasal 2.0L Cannula 10/10 2234 97.6 64 24 123/59 94 Nasal 2.0L Cannula 10/10 2155 64 123/59 10/10 1600 94 Nasal 4.0L Cannula 10/10 1600 99.2 67 23 132/72 94 Nasal 4.0L Cannula 10/10 1243 Nasal 4.0L Cannula 10/10 1200 94 Nasal 4.0L Cannula Intake & Output 10/11 1600 10/11 0800 10/11 0000 Intake Total 0 120 Output Total 100 200 Balance -100 -80 Intake, IV 0 0 Intake, Oral 0 120 Number 0 1 Bowel Movements Output, Urine 100 200 Exam General Appearance: alert, awake, comfortable Head: atraumatic, normal appearance Neck: supple, full range of motion Respiratory: normal breath sounds, chest non-tender Cardiovascular: regular rate/rhythm Abdomen: soft, non-tender, no organomegaly Extremities: normal inspection, right lower extremity zak on right calf and groin showed no erythema or discharge Neurologic/Psychiatric: awake, alert, oriented x 3 Results Last 24 Hrs of Lab Results: Laboratory Tests 10/11/17 1126: CBC w Diff Pending, WBC Pending, RBC Pending, Hgb Pending, Hct Pending, MCV Pending, MCH Pending, MCHC Pending, RDW Pending, Plt Count Pending, MPV Pending 10/11/17 0435: Anion Gap 7, Estimated GFR > 60, Glucose 112 H, Calcium 7.4 L, Phosphorus 2.0 L, Magnesium 1.7, Total Bilirubin 1.0, AST 36, ALT 32, Troponin I 2.32 *H, Albumin 2.4 L, CBC w Diff NO MAN DIFF REQ, RBC 3.34 L, MCV 84.6, MCH 28.7, MCHC 34.0, RDW 19.5 H, MPV 8.8, Gran % 82.9 H, Lymphocytes % 8.4 L, Monocytes % 8.5, Eosinophils % 0.1, Basophils % 0.1, Absolute Granulocytes 9.8 H, Absolute Lymphocytes 1.0 L, Absolute Monocytes 1.0 H, Absolute Eosinophils 0, Absolute Basophils 0 10/10/17 1200: Troponin I 3.72 *H, PT 14.1 H, INR 1.29 H Diagnostic Data CXR Findings: IMPRESSION: Moderate right pleural effusion with associated airspace opacity which could represent atelectasis or pneumonia, similar to prior. Increased small left pleural effusion. Impression/Plan Impression/Plan Impression/Plan: Mr Lyons is a 76 year old woman with a past medical history of peripheral arterial disease, hypertension, hyperlipidemia, depression, irritable bowel syndrome, status post right femoral-popliteal bypass w/ PTFE 09/25/2017 on Riveroxaban (abdominal aortic repair), COPD was sent from an ECF with a chief concern of weakness, fatigue and lethargy likely secondary to acute blood loss of anemia, post surgical hematoma or was post-surgical hemorrhage. At the time of [id number] 93.8 (improved to 96.4) his pulse rate 72, respiration 24, blood pressure 102/57 (improved to 116/57, 87% on room air improved to 98% on supplemental oxygen nasal cannula 2 L. Stool guaiac-pos Respiratory: - Her respiratory status was slightly better but she was still requiring 2-3 L of oxygen. Of note she was not on oxygen at home. Chest x-ray was repeated this morning that showed worsening right-sided pleural effusion and there was questionable haziness could be atelectasis versus infiltrate. We will give her another dose of 20 mg of Lasix today and we will repeat chest x-ray tomorrow. Given bilateral pleural effusion in a setting of elevated troponin and type II AR we would watch it carefully and also as she was on Xarelto and get a dose of Plavix yesterday we will hold on thoracentesis. We will watch her off of antibiotics for now as she is not complaining of any cough or sputum production even though she had history of bronchiectasis and will monitor her WBC count daily. -Supplemental oxygen to keep oxygen saturation more than 90%. -She has multiple pulmonary nodules that can be followed up as outpatient with annual CAT scan. ID Her WBC count today was slightly better and came down to 11.8 today. There is no source of infection and could be reactive and we will monitor closely. We'll monitor white cell count daily. And also watch for any sign of infection and will panculture her in case she developed fever at any point. Cardiovascular -On admission she had elevated troponins with ST depression in lateral leads. She has history of severe peripheral vascular disease and status post femoropopliteal bypass, history of abdominal aortic aneurysm repair, her elevated troponins with the due to demand supply mismatch and type II AR precipitated by his anemia coronary artery disease. -She was restarted on aspirin and Plavix yesterday but given her black stool this morning we will hold aspirin and Plavix for today and will wait till EGD would be done most likely this afternoon. -She would need further cardiac workup in the future as outpatient including cardiac cath/stress test at some point. -She was found to be fluid overloaded clinically as well as informed on imaging study due to multiple packed red transfusions and IV fluids. She already received 40 mg of IV Lasix and we will reassess in the morning if she required further diuresis. Hematology -She had a black bowel movement overnight and dropped her H&H from 11.0 to 9.6 this morning. GI was consulted again and we held her aspirin and Plavix in anticipation of day today. Cardiology already cleared her for EGD but we have to check her towards an EKG after that. She would be assessed by anesthesiologist to have EGD this afternoon. We will continue IV Protonix. Metabolic She was found to be hypokalemic and also her phosphorus and magnesium were also low we will repleted accordingly. Alimentary She is currently nothing by mouth for possible EGD this afternoon. Neurology No neurological deficit noted Mechanical DVT prophylaxis with [facility] ICU check list: -Lines---2 peripheral large bore IVs -Drips/fluids---no fluids given slightly fluid overload status post multiple transfusions -Diet----nothing by mouth for possible EGD today -Mechanical ventilation----none -Prophylaxis -GI--- yes -DVT---mechanical only for possible GI bleed and anemia -Analgesia/sedation----yes -CODE STATUS----DNI DNR -Family contact/case management involvement----family was updated(her son Helio )for possible EGD today George Cash MD 10/11/17 1415: Impression/Plan Impression/Plan Recommendations: George Ramon M.D. have examined this patient, reviewed available EMR data, personally reviewed images, discussed with resident/PA/INTRANET SPECIALIST, discussed management plan with housestaff and nursing staff, discussed managment plan all of healthcare providers, discussed management plan with patient and/or family, agreed with resident/PA/INTRANET SPECIALIST. The past history and parts of the chart have been autopopulated. Impression 76 year old woman * anemia improved, no obvious gi bleeding * troponinemia Plan Respiratory -small up to 4mm nodules and emphysematous changes - f/u 12 month scan if appropriate -o2 supplementation to achieve spo2 >92% -patient has bilateral pleural effusions, not present in 2014, however has some calcification to suggest chronicity, feels better, also with lasix improving, likely cardiac related -f/u cxr, no plan for thoracentesis at this time, will follow, (also was on plavix) ID -no acute issues, leukocytosis likely stress related, improving without abx CVS -f/u cardiology recommendations Heme -hgb goal >8 given troponin elevation -gi consultation -cardiology consultation appreciated -a/c held -vascular surgery consultation appreciated Metabolic -ins/outs monitoring -creatinine monitoring Alimentary -continue diet Neuro -chronic vs subacute changes reported on ct DVT prophylaxis with ALPS given anemia TTS 35 min ICU Checklist Consultations -cardiology -gastroenterology -vascular surgery Downgrade to telemetry
--- NOTE | 2017-10-11 08:41 | RADIOLOGY REPORT ---
EXAMINATION: XR PORTABLE CHEST CLINICAL INFORMATION: Hypoxia. COMPARISON: 10/10/2017 TECHNIQUE: Portable frontal view of the chest was obtained. FINDINGS: Cardiac leads overlie the chest. The lungs are well expanded. There is persistent small to moderate right pleural effusion with airspace opacity. Small left pleural effusion is increased with airspace opacity. No pneumothorax. The cardiomediastinal silhouette is unchanged, with a calcified aorta. IMPRESSION: Moderate right pleural effusion with associated airspace opacity which could represent atelectasis or pneumonia, similar to prior. Increased small left pleural effusion.
[2017-10-11 08:44] VITALS: BP 120/70
[2017-10-11 11:49] LABS: ABSOLUTE BASOPHIL COUNT 0 /CUMM (0.0-0.2); ABSOLUTE EOSINOPHIL COUNT 0 /CUMM (0.0-0.7); ABSOLUTE GRANULOCYTE CT 9.8 /CUMM (1.4-6.5); ABSOLUTE LYMPH COUNT 0.8 /CUMM (1.2-3.4); BASOPHIL % 0.3 % (0.0-2.0); EOSINOPHIL % 0.1 % (0-5); GRANULOCYTE % 83.7 % (42.2-75.2); HEMATOCRIT 31.1 % (37-47); MEAN CORPUSCULAR HGB 28.2 PG (27.0-31.0); MEAN CORPUSCULAR HGB CONC 32.8 G/DL (33.0-37.0); MEAN CORPUSCULAR VOLUME 85.9 FL (81.0-99.0); MEAN PLATELET VOLUME 8.7 FL (7.4-10.4); PLATELET COUNT 313 /CUMM (130-400); RBC DISTRIBUTION WIDTH 19.9 % (11.5-14.5); RED BLOOD CELL CT 3.62 /CUMM (4.20-5.40); WHITE BLOOD CELL COUNT 11.7 /CUMM (4.8-10.8)
--- NOTE | 2017-10-11 12:09 | PN- Cardiology ---
Subjective Subjective: The patient seems to be doing slightly better today. She had brief central chest discomfort last evening but no symptoms since. Cardiac status otherwise unchanged and stable. Apparently, the patient had some evidence of recurrent bleeding and is scheduled tentatively for endoscopy at some point later today. Objective Vital Signs and I&Os Vital Signs Date Time Temp Pulse Resp B/P B/P Pulse O2 O2 Flow FiO2 Mean Ox Delivery Rate 10/11 0844 97.9 54 20 120/70 94 Nasal 3.0L Cannula 10/11 0800 94 Nasal 2.0L Cannula 10/11 0000 94 Nasal 2.0L Cannula 10/10 2234 97.6 64 24 123/59 94 Nasal 2.0L Cannula 10/10 2155 64 123/59 10/10 1600 94 Nasal 4.0L Cannula 10/10 1600 99.2 67 23 132/72 94 Nasal 4.0L Cannula 10/10 1243 Nasal 4.0L Cannula Intake & Output 10/11 0800 10/11 0000 10/10 1600 10/10 0800 10/10 0000 Intake Total 0 120 914 500 759 Output Total 573 319 6380 720 1250 Balance -100 -80 -836 -220 -491 Intake, Blood 350 Product Intake, IV 0 0 74 500 289 Intake, Oral 0 120 840 120 Number 0 1 0 0 Bowel Movements Output, Urine 885 211 9231 720 1250 Physical Exam: General Appearance: alert, awake, anxious Head: atraumatic, normal appearance Neck: supple, JVP normal, carotids normal bilaterally Respiratory: chest non-tender, accessory muscle use, crackles, respiratory distress Cardiovascular: regular rate/rhythm, 1/6 systolic murmur left sternal border Abdomen: soft, non-tender, no organomegaly Extremities: normal inspection, cool left lower extremity with diminished pulses. Skin: normal healing wound on right lower extremity calf and right groin, status post femoropopliteal bypass. No obvious wheezing or discharge. Slight erythema but nontender. Current Medications: Current Medications Sig/Rocael Start time Last Medication Dose Route Stop Time Status Admin Acetaminophen 650 MG Q4P PRN 10/11 1200 AC PO Albuterol Sulfate 3 ML EVERY 4 HRS/AWAKE .. 10/09 1430 AC 10/10 INH 0842 Aspirin 81 MG DAILY 10/10 1215 DC 10/10 PO 1237 Atorvastatin Calcium 10 MG QPM 10/09 2100 AC 10/10 PO 2153 Clopidogrel Bisulfate 75 MG DAILY 10/10 1530 DC 10/10 PO 1631 Duloxetine HCl 60 MG DAILY 10/10 0900 AC 10/11 PO 0928 Furosemide 20 MG ONCE ONE 10/11 1000 DC 10/11 IV 10/11 1001 1034 Magnesium Oxide 400 MG 1245 10/10 1245 DC 10/10 PO 10/10 1246 1237 Magnesium Sulfate 1 GM ONCE ONE 10/11 1200 AC Dextrose/Water 100 ML IV 10/11 1559 Metoprolol Tartrate 12.5 MG BID 10/09 2130 DC 10/10 PO 2155 Morphine Sulfate 1 MG ONCE ONE 10/10 1630 DC 10/10 IV 10/10 1631 1631 Pantoprazole Sodium 40 MG BID 10/09 2100 AC 10/11 IV 0928 Potassium Chloride 40 MEQ 1245 10/10 1245 AC 10/10 PO 1238 Potassium Phosphate 15 mMol ONE ONE 10/11 0800 DC 10/11 Dextrose/Water 250 ML IV 10/11 1204 0928 Ropinirole HCl 1 MG QPM 10/09 2100 AC 10/10 PO 1620 Trimethobenzamide HCl 200 MG 4 TIMES/DAY PRN 10/09 1700 AC 10/09 IM 1710 Results Last 48 Hrs of Labs/Mics: Laboratory Tests 10/11/17 1200: CBC w Diff Cancelled, WBC Cancelled, RBC Cancelled, Hgb Cancelled, Hct Cancelled , MCV Cancelled, MCH Cancelled, MCHC Cancelled, RDW Cancelled, Plt Count Cancelled, MPV Cancelled 10/11/17 1126: CBC w Diff Pending, WBC Pending, RBC Pending, Hgb Pending, Hct Pending, MCV Pending, MCH Pending, MCHC Pending, RDW Pending, Plt Count Pending, MPV Pending, Gran % Pending, Lymphocytes % Pending, Monocytes % Pending, Eosinophils % Pending, Basophils % Pending, Absolute Granulocytes Pending, Absolute Lymphocytes Pending, Absolute Monocytes Pending, Absolute Eosinophils Pending, Absolute Basophils Pending 10/11/17 0435: Anion Gap 7, Estimated GFR > 60, Glucose 112 H, Calcium 7.4 L, Phosphorus 2.0 L, Magnesium 1.7, Total Bilirubin 1.0, AST 36, ALT 32, Troponin I 2.32 *H, Albumin 2.4 L, CBC w Diff NO MAN DIFF REQ, RBC 3.34 L, MCV 84.6, MCH 28.7, MCHC 34.0, RDW 19.5 H, MPV 8.8, Gran % 82.9 H, Lymphocytes % 8.4 L, Monocytes % 8.5, Eosinophils % 0.1, Basophils % 0.1, Absolute Granulocytes 9.8 H, Absolute Lymphocytes 1.0 L, Absolute Monocytes 1.0 H, Absolute Eosinophils 0, Absolute Basophils 0 10/10/17 1200: Troponin I 3.72 *H, PT 14.1 H, INR 1.29 H 10/10/17 0610: Troponin I 5.47 *H 10/10/17 0610: Anion Gap 11, Estimated GFR > 60, Glucose 132 H, Calcium 8.1 L, Phosphorus 2.2 L, Magnesium 1.8, Total Bilirubin 1.1, AST 64 H, ALT 40, Albumin 3.0 L, CBC w Diff MAN DIFF ORDERED, RBC 3.84 L, MCV 86.0, MCH 28.5, MCHC 33.2, RDW 19.4 H, MPV 8.9, Gran % 87.3 H, Lymphocytes % 6.0 L, Monocytes % 6.3, Eosinophils % 0.1, Basophils % 0.3, Absolute Granulocytes 12.1 H, Segmented Neutrophils 84 H , Band Neutrophils 2, Absolute Lymphocytes 0.8 L, Lymphocytes 9 L, Monocytes 5 , Absolute Monocytes 0.9 H, Absolute Eosinophils 0, Absolute Basophils 0, Platelet Estimate ADEQUATE, Polychromasia 1+, Poikilocytosis 1+, Ovalocytes 1+, Elliptocytes FEW, Fld Total RBCs Counted 100 10/10/17 0000: Anion Gap 11, Estimated GFR > 60, Glucose 127 H, Calcium 7.6 L, Phosphorus 2.8 , Magnesium 1.7, Total Bilirubin 1.1, AST 63 H, ALT 41, Troponin I 7.41 *H, Albumin 2.9 L 10/09/17 1800: Troponin I 6.42 *H, CBC w Diff NO MAN DIFF REQ, RBC 3.48 L, MCV 85.7, MCH 28.9, MCHC 33.8, RDW 17.8 H, MPV 9.0, Gran % 85.2 H, Lymphocytes % 7.0 L, Monocytes % 7.7, Eosinophils % 0, Basophils % 0.1, Absolute Granulocytes 11.5 H, Absolute Lymphocytes 0.9 L, Absolute Monocytes 1.0 H, Absolute Eosinophils 0, Absolute Basophils 0 10/09/17 1300: Troponin I Cancelled 10/09/17 1255: Troponin I 2.92 *H Assessment/Plan Assessment/Plan Assessment: 1. Peripheral arterial disease, status post femoropopliteal bypass 2. History of AAA repair 3. Severe anemia secondary to blood loss on anticoagulation. Anemia more likely secondary to surgical blood loss. Recent dark heme-positive stools suggestive of possible recurrent GI bleeding 4. Elevated troponin with mild chest discomfort consistent with non-ST elevation myocardial infarction. Likely type II ID precipitated by severe anemia in the setting of fixed CAD Plan: * Restart aspirin 81 mg daily * Anticoagulation on hold for recent acute bleeding. Would check with vascular surgery regarding plans for long-term anticoagulation * Echocardiogram noted * Will need further workup for ischemia at some point, however cardiac catheterization contraindicated for now given recent unexplained blood loss and severe anemia. * IV Lasix given today for volume overload secondary to transfusions and IV fluids. Will reevaluate need for further doses of Lasix tomorrow * With respect to possible endoscopy later today, which is semi-emergent in view of evidence of recurrent bleeding, I believe that the patient is at somewhat elevated risk for any procedure, however, will likely tolerate the procedure without difficulty. Her elevated troponin occurred at the time of a markedly diminished hemoglobin. Her evidence of mild CHF was likely related to volume loading in the face of normal LV function. Her ECG is abnormal but remains unchanged. Her echocardiogram shows normal left ventricular function with no wall motion abnormalities. Her hemoglobin is now more normalized. * I would recheck an ECG later today following the endoscopy and again in the morning. I will also recheck troponin 2 postprocedure. Continue telemetry? Yes
--- NOTE | 2017-10-11 13:07 | Proc Note Endoscopy ---
Endoscopy Procedure Medical [facility]: [facility] Mental Status: alert/oriented Heart/Lung Eval Prior to Sedation: within normal limits Candidate for Sedation? Yes Procedure Date: 10/11/17 Procedure Type: EGD [employer] Salesperson: Taras Villalba MD ASA Classification: IV Indications: Melena, anemia. Instrument: diagnostic gastroscope Meds Received: MAC Patient's Tolerance: good Complications: none Extent Reached: second part of duodenum Procedure: After getting written informed consent the patient was placed in the left lateral decubitus position with pulse oximetry, cardiac monitoring, and supplemental oxygen given. A bite block was inserted and IV sedation was given until the desired effect was achieved. A high definition upper Olympus endoscope was then inserted into the mouth and advanced to the second portion of the duodenum with little difficulty. Retroflexed views and photodocumentation was obtained. Findings: Esophagus: The esophageal mucosa was grossly normal appearance and is a normal- appearing Z line at 38 cm the incisors. Stomach: The gastric mucosa was grossly normal appearance. There were no ulcers , erosions, or masses appreciated. Distention and peristalsis of the stomach appeared normal. Retroflexed views were normal and did not reveal significant hiatal hernia. Duodenum: There was a small nonbleeding AVM in the second portion of the duodenum which was left untreated. The remainder of the duodenum was normal in appearance with normal villi. There was bile appreciated throughout to the second portion of the duodenum. Impression: 1. Small nonbleeding duodenal AVM left intact. 2. Otherwise grossly normal upper endoscopy without active bleeding appreciated. Recommendations: 1. Advance diet as tolerated. 2. She should be maintained on oral PPI for GI prophylaxis. 3. There are no absolute GI consultation indications to resuming antiplatelet therapy or anticoagulation if medically indicated. 4. Would ask that GI be contacted for any recurrent bleeding. 5. Would put on oral iron supplementation for her anemia. CC: Varghese PFEIFFER,Reinier Forman
[2017-10-11 15:39] VITALS: BP 118/50
--- NOTE | 2017-10-11 16:23 | PN- Vascular Surgery ---
Subjective Subjective: 76 Y/O FEMALE LYING IN BED, COMFORTABLE WITHOUT COMPLAINTS, FAMILY PRESENT. PAIN CONTROLLED Objective Vital Signs and I&Os Vital Signs Date Time Temp Pulse Resp B/P B/P Pulse O2 O2 Flow FiO2 Mean Ox Delivery Rate 10/11 1539 94 Nasal 2.0L Cannula 10/11 1539 100.2 64 29 118/50 94 Nasal 2.0L Cannula 10/11 1430 94 Nasal 2.0L Cannula 10/11 0844 97.9 54 20 120/70 94 Nasal 3.0L Cannula 10/11 0800 94 Nasal 2.0L Cannula 10/11 0000 94 Nasal 2.0L Cannula 10/10 2234 97.6 64 24 123/59 94 Nasal 2.0L Cannula 10/10 2155 64 123/59 Intake & Output 10/11 0810/11 0000 10/10 1600 10/10 0000 Intake Total 370 0 120 914 500 759 Output Total 950 806 154 7863 720 1250 Balance -580 -100 -80 -836 -220 -491 Intake, Blood 350 Product Intake, IV 270 0 0 74 500 289 Intake, Oral 100 0 120 840 120 Number 2 0 1 0 0 Bowel Movements Output, Urine 950 209 932 1819 720 1250 Patient 110 lb Weight Physical Exam: RIGHT LEG- WOUNDS CDI WITHOUT DRAINAGE CALVES SOFT BILATERALLY ZAK REMOVED WITHOUT INCIDENT FEET WARM DISTAL PULSES INTACT Admission Lab Results I reviewed the following labs: Laboratory Tests 10/11 10/11 10/11 1456 1200 1126 Chemistry Troponin I (< 0.11 ng/ml) 2.07 *H Hematology CBC w Diff Cancelled NO MAN DIFF REQ WBC (4.8 - 10.8 /CUMM) Cancelled 11.7 H RBC (4.20 - 5.40 /CUMM) Cancelled 3.62 L Hgb (12.0 - 16.0 G/DL) Cancelled 10.2 L Hct (37 - 47 %) Cancelled 31.1 L MCV (81.0 - 99.0 FL) Cancelled 85.9 MCH (27.0 - 31.0 PG) Cancelled 28.2 MCHC (33.0 - 37.0 G/DL) Cancelled 32.8 L RDW (11.5 - 14.5 %) Cancelled 19.9 H Plt Count (130 - 400 /CUMM) Cancelled 313 MPV (7.4 - 10.4 FL) Cancelled 8.7 Gran % (42.2 - 75.2 %) 83.7 H Lymphocytes % (20.5 - 51.1 %) 7.0 L Monocytes % (1.7 - 9.3 %) 8.9 Eosinophils % (0 - 5 %) 0.1 Basophils % (0.0 - 2.0 %) 0.3 Absolute Granulocytes (1.4 - 6.5 /CUMM) 9.8 H Absolute Lymphocytes (1.2 - 3.4 /CUMM) 0.8 L Absolute Monocytes (0.10 - 0.60 /CUMM) 1.0 H Absolute Eosinophils (0.0 - 0.7 /CUMM) 0 Absolute Basophils (0.0 - 0.2 /CUMM) 0 10/11 0435 Chemistry Sodium (137 - 145 mmol/L) 139 Potassium (3.5 - 5.1 mmol/L) 3.5 Chloride (98 - 107 mmol/L) 110 H Carbon Dioxide (22 - 30 mmol/L) 21 L Anion Gap (5 - 16) 7 BUN (7 - 17 mg/dL) 20 H Creatinine (0.5 - 1.0 mg/dL) 0.6 Estimated GFR (>60 ml/min) > 60 Glucose (65 - 99 mg/dL) 112 H Calcium (8.4 - 10.2 mg/dL) 7.4 L Phosphorus (2.5 - 4.5 mg/dL) 2.0 L Magnesium (1.6 - 2.3 mg/dL) 1.7 Total Bilirubin (0.2 - 1.3 mg/dL) 1.0 AST (14 - 36 U/L) 36 ALT (9 - 52 U/L) 32 Troponin I (< 0.11 ng/ml) 2.32 *H Albumin (3.5 - 5.0 g/dL) 2.4 L Hematology CBC w Diff NO MAN DIFF REQ WBC (4.8 - 10.8 /CUMM) 11.8 H RBC (4.20 - 5.40 /CUMM) 3.34 L Hgb (12.0 - 16.0 G/DL) 9.6 L Hct (37 - 47 %) 28.2 L MCV (81.0 - 99.0 FL) 84.6 MCH (27.0 - 31.0 PG) 28.7 MCHC (33.0 - 37.0 G/DL) 34.0 RDW (11.5 - 14.5 %) 19.5 H Plt Count (130 - 400 /CUMM) 301 MPV (7.4 - 10.4 FL) 8.8 Gran % (42.2 - 75.2 %) 82.9 H Lymphocytes % (20.5 - 51.1 %) 8.4 L Monocytes % (1.7 - 9.3 %) 8.5 Eosinophils % (0 - 5 %) 0.1 Basophils % (0.0 - 2.0 %) 0.1 Absolute Granulocytes (1.4 - 6.5 /CUMM) 9.8 H Absolute Lymphocytes (1.2 - 3.4 /CUMM) 1.0 L Absolute Monocytes (0.10 - 0.60 /CUMM) 1.0 H Absolute Eosinophils (0.0 - 0.7 /CUMM) 0 Absolute Basophils (0.0 - 0.2 /CUMM) 0 Assessment/Plan Assessment/Plan 76 Y/O female s/p right femoral-popliteal bypass w/ PTFE 09/25/2017. All zak removed. wounds appear healing well. Core Measures Venous Thromboembolism VTE Risk Factors Acute Medical Illness No Mechanical VTE Prophylaxis d/t N/A MechProphylax Ordered No VTE Pharm Prophylaxis d/t Bleeding (Active)
[2017-10-12] VITALS: BP 100/60
[2017-10-12 06:19] LABS: ABSOLUTE BASOPHIL COUNT 0 /CUMM (0.0-0.2); ABSOLUTE EOSINOPHIL COUNT 0.1 /CUMM (0.0-0.7); ABSOLUTE GRANULOCYTE CT 5.6 /CUMM (1.4-6.5); ABSOLUTE LYMPH COUNT 0.9 /CUMM (1.2-3.4); ABSOLUTE MONOCYTE COUNT 0.8 /CUMM (0.10-0.60); BASOPHIL % 0.4 % (0.0-2.0); EOSINOPHIL % 0.7 % (0-5); GRANULOCYTE % 75.7 % (42.2-75.2); HEMATOCRIT 28.8 % (37-47); MEAN CORPUSCULAR HGB 28.4 PG (27.0-31.0); MEAN CORPUSCULAR HGB CONC 33.2 G/DL (33.0-37.0); MEAN CORPUSCULAR VOLUME 85.4 FL (81.0-99.0); MEAN PLATELET VOLUME 9.2 FL (7.4-10.4); PLATELET COUNT 272 /CUMM (130-400); RBC DISTRIBUTION WIDTH 19.1 % (11.5-14.5); RED BLOOD CELL CT 3.38 /CUMM (4.20-5.40); WHITE BLOOD CELL COUNT 7.4 /CUMM (4.8-10.8)
--- NOTE | 2017-10-12 06:29 | RADIOLOGY REPORT ---
EXAMINATION: XR PORTABLE CHEST CLINICAL INFORMATION: Hypoxia COMPARISON: 10/11/2017 TECHNIQUE: Portable frontal view of the chest was obtained. FINDINGS: There is redemonstrated hazy heterogeneous opacity at the bilateral lung bases, similar on the right and slightly worsened on the left compared to prior. Associated small pleural effusions are again demonstrated. No evidence of pneumothorax. Interstitium remains prominent bilaterally. Cardiac size is within normal limits. Calcification is present at the aortic arch. No acute osseous findings are seen. IMPRESSION: Redemonstrated small bilateral pleural effusions with associated bibasilar opacities, similar on the right and slightly worsened on the left compared to prior.
--- NOTE | 2017-10-12 07:57 | PN- CRCU ---
Michaela Deleon 10/12/17 0757: Subjective HPI/Critical Care Issues: #1 acute blood loss anemia most likely multifactorial and related to recent vascular surgery/right femoral hematoma/upper JOSELYN is also a possibility. #2 elevated troponin, associated EKG changes in lateral leads most likely due to demand ischemia given her severe anemia #3 severe emphysema/multiple pulmonary nodules/bilateral pleural effusion right more than left #4 history of hypertension, hyperlipidemia #5 Rt femoral hematoma #6 peripheral arterial disease 24 hour events Patient is seen in this morning. She was lying comfortable in bed without any significant complaints. Her respiratory status is better. She still requires 2 L of supplemental oxygen and we will try to taper that off. Chest x-ray showed small bilateral pleural effusions with associated bibasilar opacities which is slightly worsened but given her clinical status and normal WBC count most likely pneumonia Objective Current Medications: Current Medications Sig/Rocael Start time Last Medication Dose Route Stop Time Status Admin Acetaminophen 650 MG Q4P PRN 10/11 1200 AC 10/12 PO 0710 Albuterol Sulfate 3 ML EVERY 4 HRS/AWAKE .. 10/09 1430 AC 10/10 INH 0842 Aspirin 81 MG DAILY 10/11 1445 AC 10/11 PO 1643 Atorvastatin Calcium 10 MG QPM 10/09 2100 AC 10/11 PO 2213 Chlorhexidine 1 GM .STK-MED ONE 10/11 1354 DC Gluconate TOP 10/11 1355 Clopidogrel Bisulfate 75 MG DAILY 10/11 1445 AC 10/11 PO 1643 Duloxetine HCl 60 MG DAILY 10/10 0900 AC 10/11 PO 0928 Ferrous Sulfate 325 MG TID 10/11 1504 AC 10/11 PO 2214 Furosemide 20 MG ONCE ONE 10/11 1000 DC 10/11 IV 10/11 1001 1034 Magnesium Chloride 64 MG ONCE ONE 10/12 0800 DC PO 10/12 0801 Magnesium Oxide 400 MG .STK-MED ONE 10/11 1405 DC PO 10/11 1406 Magnesium Sulfate 1 GM ONCE ONE 10/11 1200 DC 10/11 Dextrose/Water 100 ML IV 10/11 1559 1409 Metoprolol Tartrate 6.25 MG BID 10/11 2100 AC PO Metoprolol Tartrate 12.5 MG BID 10/09 2130 DC 10/10 PO 2155 Morphine Sulfate 1 MG ONCE ONE 10/11 1930 DC 10/11 IV 10/11 1931 1944 Omeprazole 40 MG DAILY AC 10/12 0700 AC 10/12 PO 0703 Pantoprazole Sodium 40 MG BID 10/09 2100 DC 10/11 IV 0928 Phosphate 250 MG ONCE ONE 10/12 0800 DC PO 10/12 0801 Potassium Chloride 60 MEQ ONCE ONE 10/12 0800 DC PO 10/12 0801 Potassium Chloride 40 MEQ 1245 10/10 1245 AC 10/11 PO 1409 Potassium Phosphate 15 mMol ONE ONE 10/11 0800 DC 10/11 Dextrose/Water 250 ML IV 10/11 1204 0928 Ropinirole HCl 1 MG QPM 10/09 2100 AC 10/12 PO 0019 Trimethobenzamide HCl 200 MG 4 TIMES/DAY PRN 10/09 1700 AC 10/09 IM 1710 Vital Signs & I&O Last 24 Hrs of Vitals and I&O: Vital Signs Date Time Temp Pulse Resp B/P B/P Pulse O2 O2 Flow FiO2 Mean Ox Delivery Rate 10/12 0800 96 Nasal 2.0L Cannula 10/12 0800 98.4 60 20 122/60 96 Nasal 2.0L Cannula 10/12 0000 98.6 60 21 100/60 97 Nasal 2.0L Cannula 10/12 0000 97 Nasal 2.0L Cannula 10/11 2220 60 107/51 10/11 2102 94 Nasal 3.0L Cannula 10/11 1708 99.2 10/11 1539 94 Nasal 2.0L Cannula 10/11 1539 100.2 64 29 118/50 94 Nasal 2.0L Cannula 10/11 1430 94 Nasal 2.0L Cannula Intake & Output 10/12 1600 10/12 0800 10/12 0000 Intake Total 120 120 Output Total 450 0 Balance -330 120 Intake, IV 0 0 Intake, Oral 120 120 Number 1 0 Bowel Movements Output, Urine 450 0 Exam General Appearance: alert, awake, comfortable Head: atraumatic Neck: normal inspection, supple Respiratory: chest non-tender, no respiratory distress Cardiovascular: regular rate/rhythm Abdomen: soft, non-tender Back: normal inspection Extremities: LEFT LOWER EXTREMITY COLD AND DIMINISHED PULSES Skin: NORMAL LOOKING/WELL HEALED RIGHT GROIN AND CALF SURGICAL INCISIONS Diagnostic Data CXR Findings: IMPRESSION: Redemonstrated small bilateral pleural effusions with associated bibasilar opacities, similar on the right and slightly worsened on the left compared to prior. Impression/Plan Impression/Plan Impression/Plan: Mr Lyons is a 76 year old woman with a past medical history of peripheral arterial disease, hypertension, hyperlipidemia, depression, irritable bowel syndrome, status post right femoral-popliteal bypass w/ PTFE 09/25/2017 on Riveroxaban (abdominal aortic repair), COPD was sent from an ECF with a chief concern of weakness, fatigue and lethargy likely secondary to acute blood loss of anemia, post surgical hematoma or was post-surgical hemorrhage. At the time of [id number] 93.8 (improved to 96.4) his pulse rate 72, respiration 24, blood pressure 102/57 (improved to 116/57, 87% on room air improved to 98% on supplemental oxygen nasal cannula 2 L. Stool guaiac-pos Respiratory: - Her respiratory status is better but she was still requiring 2L of oxygen. Of note she was not on oxygen at home. Chest x-ray was repeated this morning that showed small bilateral pleural effusion and associated obesity is which were slightly worsened than yesterday but given her stable clinical status and normal WBC count we would watch her closely without antibiotics. . -Supplemental oxygen to keep oxygen saturation more than 90%. -She has multiple pulmonary nodules that can be followed up as outpatient with annual CAT scan. ID Her WBC count today is normal There is no source of infection and could be reactive and we will monitor closely. We'll monitor white cell count daily. And also watch for any sign of infection and will panculture her in case she developed fever at any point. Cardiovascular -On admission she had elevated troponins with ST depression in lateral leads. She has history of severe peripheral vascular disease and status post femoropopliteal bypass, history of abdominal aortic aneurysm repair, her elevated troponins with the due to type II DC precipitated by his anemia coronary artery disease. -She was restarted on aspirin and Plavix -Given her sinus bradycardia her metoprolol dose from 12.5 twice a day was decreased to 6.25 twice a day daily Hematology -H&H stable at 9.6, hematocrit 28.8. -We'll continue oral GI prophylaxis Metabolic Potassium 3.5, phosphorus 2.8 and magnesium 1.8. We will replete accordingly Alimentary Tolerating oral food fine. Neurology No neurological deficit noted Mechanical DVT prophylaxis with [facility] ICU check list: -Lines---2 peripheral large bore IVs -Drips/fluids---no fluids given slightly fluid overload status post multiple transfusions -Diet----heart healthy diet -Mechanical ventilation----none -Prophylaxis -GI--- yes -DVT---mechanical only for possible GI bleed and anemia -Analgesia/sedation----yes -CODE STATUS----DNI DNR -Family contact/case management involvement---- Cruzito Louie MD 10/12/170: Attending MD Review Statement Attending Statement Attending MD Statement: examined this patient, discuss w/resident/PA/APRON WORKER, agreed w/resident/PA/APRON WORKER, reviewed EMR data (avail), discussed w/case mgmt, amended to note Attending Assessment/Plan: The patient was seen and discussed with house staff, case management, and Cardiology (Dr. Ferrera). Clinically improved and transferred from ICU to Telemetry today. H/H increased post transfusions. HR slightly low, however will continue low dose metoprolol per Cardiology. Will need eventual pharmacologic stress to be addressed by Dr. Brooks.
[2017-10-12 08:00] VITALS: BP 122/60
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
[2017-10-12 15:14] VITALS: BP 112/68
--- NOTE | 2017-10-12 15:56 | Discharge Summary ---
Visit Information Visit Dates Admission Date: 10/09/17 Discharge Date: 10/13/17 Hospital Course Course Attending Physician: Curzito Louie MD Primary Care Physician: Varghese PFEIFFER,Reinier Forman Consulting Request: Consulting Specialty: Cardiology Consulting Physician: Sarahi Ferrera MD Reason for Consult: type II MO Hospital Course: Mr Lyons is a 76 year old woman with a past medical history of peripheral arterial disease, previous AAA repair, hypertension, hyperlipidemia, depression , irritable bowel syndrome, status post right femoral-popliteal bypass w/ PTFE 09/25/2017 on Riveroxaban (abdominal aortic repair), COPD was sent from an F with a chief concern of weakness, fatigue and lethargy. She was known to be in her usual state of heatlh until a few weeks ago until she underwent fem-pop bypass done by Dr. Galarza without any postoperative competitions (09/25/2017-09/28/2017). There was a drop in H&H after the surgery, which stabilized around Hb 9.4 at the discharge. She was started on Riveroxaban after the surgery, and was discharged to [facility] ( [facility] In the facility patient was noted to be very dyspneic and lethargic for which she was brought to [facility]. In ER I hemoglobin was 4.8, hematocrit 14.4 and elevated troponins to 1.26 Her vital signs were temperature 93.8, heart rate 72, respiratory rate 24, blood pressure 1020 Versed 57 and she was saturating 87% on room air later on 92% on 2 L nasal cannula. She was admitted initially in ICU from October 09 - October 12 and after stabilization was transferred to telemetry floor During her ICU stay she was taken care for the following problems #1 acute blood loss anemia most likely multifactorial and related to recent vascular surgery/right femoral hematoma/upper GI BLEED was also a possibility. She was monitored closely in ICU. Her H&H was monitored every 12 hours. She received 3 units of packed red cells during first 24 hours and her H&H came up nicely from [id number]. Initially given her worsening respiratory status, elevated troponins GI hold on any EGD at the beginning but on October 11 she dropped her H&H again from 11.09.6 and had a black bowel movement. She had EGD on October 11 which does not reveal any active source of bleeding. Her IV Protonix were changed to prophylaxis oral Protonix. There was no melena noted afterwards and her H&H remained stable. She was started on iron supplement as well. #2 elevated troponin, associated EKG changes in lateral leads most likely due to demand ischemia given her severe anemia Serial troponin and EKGs were done. Her troponin peaked at 7.41. She remained asymptomatic without any chest pain. Her EKG also showed ST depressions in lateral leads. Cardiology was consulted. Once cleared from GI she was started on aspirin. Initially she was started on metoprolol 12.5 mg twice a day but her heart rate was noted to be in 50s to 60s and dose of metoprolol was cut down to 6.25 twice a day. Echocardiogram was done that showed normal-sized left ventricle, estimated ejection fraction at 55%. No obvious regional wall motion abnormalities were noted. Patient would need ischemia workup at some point however cardiac catheterization was contraindicated given recent unexplained blood loss and severe anemia. Patient needs to be follow-up with cardiology as outpatient for further ischemia workup in near future . After the units of packed red cells she was noted to be in respiratory distress and required IV Lasix as needed on October 10 and October 11. Serial chest x-rays were done as well. #3 severe emphysema/multiple pulmonary nodules/bilateral pleural effusion right more than left She was noted to have bilateral pleural effusion which was slightly better after IV diuresis. She has chronic multiple pulmonary nodules and needs to be follow- up as outpatient #4 history of hypertension, hyperlipidemia Patient was continued on statins and beta blockers. She remained hemodynamically stable throughout her ICU course. #5 Rt femoral hematoma Right lower extremity arterial ultrasound was done which showed patent right lower extremity graft, 6 cm hematoma was also noted at right groin. Vascular surgery was consulted and they thought probably not because of drop in her H&H. Also she was noted to have high WBC count at the beginning and end infection at hematoma site was ruled out given her normal WBC count later without any signs of infection. Her zak were removed on October 11 by surgical PA. #6 peripheral arterial disease She has recent right femoral popliteal bypass. She has severe peripheral vascular disease in her left lower extremity as well and her examination was found to be older than right lower extremity and also have diminished pulses. She needs to be follow-up with vascular surgery as outpatient. On admission she was on Rivaroxiban which was hold initially and later on was changed to Plavix after consulting vascular surgery #Anxiety/depression/panic attacks Patient has history of anxiety and was on Cymbalta. She had a few panic attacks during ICU stay and requested for psych evaluation. She patient was seen by psychiatry and was started on gabapentin 100 mg daily which can be increased to 300 mg 3 times a day as patient tolerated. Please inform psychiatry when her discharge plan would be final and she needs to get an appointment at [facility] outpatient psychiatry at [address] [place] [address]. [place] [id number], [phone] Complications: none Allergies: Coded Allergies: Iodinated Contrast- Oral and IV Dye (Severe, RASH 09/17/17) diazepam (Severe, ANGIODEMA 09/17/17) meperidine (Severe, ANGIODEMA 09/17/17) Significant Procedures: Endoscopy Procedure Medical History: unchanged (see meditech consult) Mental Status: alert/oriented Heart/Lung Eval Prior to Sedation: within normal limits Candidate for Sedation? Yes Procedure Date: 10/11/17 Procedure Type: EGD Warp Drawer: Taras Villalba MD ASA Classification: IV Indications: Melena, anemia. Instrument: diagnostic gastroscope Meds Received: MAC Patient's Tolerance: good Complications: none Extent Reached: second part of duodenum Procedure: After getting written informed consent the patient was placed in the left lateral decubitus position with pulse oximetry, cardiac monitoring, and supplemental oxygen given. A bite block was inserted and IV sedation was given until the desired effect was achieved. A high definition upper Olympus endoscope was then inserted into the mouth and advanced to the second portion of the duodenum with little difficulty. Retroflexed views and photodocumentation was obtained. Findings: Esophagus: The esophageal mucosa was grossly normal appearance and is a normal- appearing Z line at 38 cm the incisors. Stomach: The gastric mucosa was grossly normal appearance. There were no ulcers , erosions, or masses appreciated. Distention and peristalsis of the stomach appeared normal. Retroflexed views were normal and did not reveal significant hiatal hernia. Duodenum: There was a small nonbleeding AVM in the second portion of the duodenum which was left untreated. The remainder of the duodenum was normal in appearance with normal villi. There was bile appreciated throughout to the second portion of the duodenum. Impression: 1. Small nonbleeding duodenal AVM left intact. 2. Otherwise grossly normal upper endoscopy without active bleeding appreciated. Recommendations: 1. Advance diet as tolerated. 2. She should be maintained on oral PPI for GI prophylaxis. 3. There are no absolute GI consultation indications to resuming antiplatelet therapy or anticoagulation if medically indicated. 4. Would ask that GI be contacted for any recurrent bleeding. 5. Would put on oral iron supplementation for her anemia. CC: Varghese PFEIFFER,Reinier Forman Disposition Summary Disposition Principal Diagnosis: Acute blood loss anemia Additional Diagnosis: Severe peripheral vascular disease status post right femoral popliteal bypass graft Discharge Disposition: SNF Discharge Instructions General Discharge Information Code Status: Do Not Resucitate/Intubat Patient's Diet: heart healthy diet Patient's Activity: As tolerated Follow-Up Instructions/Appts: Please follow-up with your primary care physician in one week of discharge Please follow-up with cardiology in 1-2 weeks of discharge Please follow-up with vascular surgery in 1-2 weeks of discharge Please follow-up with outpatient psychiatry at [facility] Medications at Discharge Discharge Medications: Stop taking the following medications: Oxycodone HCl/Acetaminophen (Percocet 5-325 MG Tablet) 5 MG-325 MG TABLET ORAL THREE TIMES DAILY as needed for PAIN Rivaroxaban (Xarelto) 20 MG TABLET ORAL DAILY Qty = 90 Rivaroxaban (Xarelto) 15 MG TABLET ORAL TWICE DAILY Qty = 42 Continue taking these medications: Ropinirole HCl (Ropinirole HCl) 1 MG TABLET 1 Tablet ORAL Every night Qty = 30 Comments: Last Taken: 10/12/17 Time: 1900 Duloxetine HCl (Duloxetine HCl) 60 MG CAPSULE.DR 1 Capsule ORAL DAILY Qty = 15 Comments: Last Taken: 10/12/17 Time: 0850 Atorvastatin Calcium (Atorvastatin Calcium) 10 MG TABLET 1 Tablet ORAL Every night Qty = 30 Comments: Last Taken: 10/12/17 Time: 2050 Potassium Chloride (Potassium Chloride) 20 MEQ TAB.ER.PRT 1 Tablet ORAL TWICE DAILY Qty = 60 Comments: Last Taken: 10/13/17 Time: 1100 Amlodipine Besylate (Amlodipine Besylate) 10 MG TABLET 1 Tablet ORAL DAILY Qty = 90 Comments: Last Taken: NOT GIVEN IN HOSPITAL Time: Aspirin ([place] Aspirin) 81 MG TABLET.DR 1 Tablet ORAL DAILY Comments: Last Taken: 10/13/17 Time: 0850 Sennosides/Docusate Sodium (Senna S Tablet) 8.6 MG-50 MG TABLET 1 Tablet ORAL Every night Comments: Last Taken: NOT GIVEN IN HOSPITAL Time: Start taking the following new medications: Clopidogrel Bisulfate (Plavix) 75 MG TABLET 75 Milligram ORAL DAILY Qty = 30 No Refills Comments: Last Taken: 10/13/17 Time: 0850 Ferrous Sulfate (Ferrous Sulfate) 325 MG (65 MG IRON) TABLET.DR 325 Milligram ORAL THREE TIMES DAILY Days = 30 No Refills Comments: Last Taken: 10/13/17 Time: 0850 Gabapentin (Gabapentin) 100 MG CAPSULE 100 Milligram ORAL DAILY as needed for ANXIETY Days = 30 No Refills Comments: Last Taken: NOT GIVEN IN HOSPITAL Time: Omeprazole (Omeprazole) 20 MG CAPSULE.DR 40 Milligram ORAL DAILY BEFORE BREAKFAST Days = 30 No Refills Comments: Last Taken: 10/13/17 Time: 0610 Metoprolol Tartrate (Metoprolol Tartrate) 25 MG TABLET 6.25 Milligram ORAL TWICE DAILY Days = 30 No Refills Comments: Last Taken: 10/13/17 Time: 0850 Copies To: Maisha PFEIFFER,Prem Prather; Gabriel PFEIFFER,Shalom; Taras Villalba MD; Vraghese PFEIFFER,Reinier Forman ; Nav Brooks MD
--- NOTE | 2017-10-12 16:31 | PN- Cardiology ---
Subjective Subjective: Clinically stable post endoscopy with no new cardiac issues Objective Vital Signs and I&Os Vital Signs Date Time Temp Pulse Resp B/P B/P Pulse O2 O2 Flow FiO2 Mean Ox Delivery Rate 10/12 1514 97.3 62 22 112/68 97 Nasal 3.0L Cannula 10/12 1159 94 Nasal 2.0L Cannula 10/12 1107 63 110/50 10/12 0800 96 Nasal 2.0L Cannula 10/12 0800 98.4 60 20 122/60 96 Nasal 2.0L Cannula 10/12 0000 98.6 60 21 100/60 97 Nasal 2.0L Cannula 10/12 0000 97 Nasal 2.0L Cannula 10/11 2220 60 107/51 10/11 2102 94 Nasal 3.0L Cannula 10/11 1708 99.2 Intake & Output 10/12 1600 10/12 0800 10/12 0000 10/11 1600 10/11 0800 10/11 0000 Intake Total 400 120 120 370 0 120 Output Total 350 450 0 950 100 200 Balance 50 -330 120 -580 -100 -80 Intake, IV 0 0 270 0 0 Intake, Oral 400 120 120 100 0 120 Number 1 0 2 0 1 Bowel Movements Output, Urine 350 450 0 950 100 200 Patient 110 lb Weight Physical Exam: General Appearance: alert, awake, anxious Head: atraumatic, normal appearance Neck: supple, JVP normal, carotids normal bilaterally Respiratory: chest non-tender, accessory muscle use, crackles, respiratory distress Cardiovascular: regular rate/rhythm, 1/6 systolic murmur left sternal border Abdomen: soft, non-tender, no organomegaly Extremities: normal inspection, cool left lower extremity with diminished pulses. Skin: normal healing wound on right lower extremity calf and right groin, status post femoropopliteal bypass. No obvious wheezing or discharge. Slight erythema but nontender. Current Medications: Current Medications Sig/Rocael Start time Last Medication Dose Route Stop Time Status Admin Acetaminophen 650 MG .STK-MED ONE 10/12 0707 DC PO 10/12 0708 Acetaminophen 650 MG Q4P PRN 10/11 1200 AC 10/12 PO 0710 Albuterol Sulfate 3 ML EVERY 4 HRS/AWAKE .. 10/09 1430 DC 10/10 INH 0842 Aspirin 81 MG DAILY 10/11 1445 AC 10/12 PO 1054 Atorvastatin Calcium 10 MG QPM 10/09 2100 AC 10/11 PO 2213 Clopidogrel Bisulfate 75 MG DAILY 10/11 1445 AC 10/12 PO 1055 Duloxetine HCl 60 MG DAILY 10/10 0900 AC 10/12 PO 1054 Ferrous Sulfate 325 MG TID 10/11 1504 AC 10/12 PO 1428 Gabapentin 100 MG Q8 10/12 1445 CAN PO Gabapentin 100 MG DAILY PRN 10/12 1445 AC PO Magnesium Chloride 64 MG ONCE ONE 10/12 0800 DC 10/12 PO 10/12 0801 1058 Metoprolol Tartrate 6.25 MG BID 10/11 2100 AC 10/12 PO 1107 Morphine Sulfate 1 MG ONCE ONE 10/11 1930 DC 10/11 IV 10/11 193 194 Omeprazole 40 MG DAILY AC 10/12 0700 AC 10/12 PO 0703 Phosphate 250 MG ONCE ONE 10/12 0800 DC 10/12 PO 10/12 0801 1054 Potassium Chloride 60 MEQ ONCE ONE 10/12 0800 DC 10/12 PO 10/12 0801 1055 Potassium Chloride 40 MEQ 1245 10/10 1245 AC 10/12 PO 1428 Ropinirole HCl 1 MG QPM 10/09 2100 AC 10/12 PO 0019 Trimethobenzamide HCl 200 MG 4 TIMES/DAY PRN 10/09 1700 AC 10/09 IM 1710 Results Last 48 Hrs of Labs/Mics: Laboratory Tests 10/12/17 0545: Anion Gap 8, Estimated GFR > 60, Glucose 107 H, Calcium 7.7 L, Phosphorus 2.8, Magnesium 1.8, Total Bilirubin 0.9, AST 39 H, ALT 42, Albumin 2.5 L, TSH 3.670 , Free T4 1.63, Total T3 0.84 L, CBC w Diff NO MAN DIFF REQ, RBC 3.38 L, MCV 85.4, MCH 28.4, MCHC 33.2, RDW 19.1 H, MPV 9.2, Gran % 75.7 H, Lymphocytes % 12.1 L, Monocytes % 11.1 H, Eosinophils % 0.7, Basophils % 0.4, Absolute Granulocytes 5.6, Absolute Lymphocytes 0.9 L, Absolute Monocytes 0.8 H, Absolute Eosinophils 0.1, Absolute Basophils 0 10/11/17 2050: Troponin I 1.83 *H 10/11/17 1456: Troponin I 2.07 *H 10/11/17 1200: CBC w Diff Cancelled, WBC Cancelled, RBC Cancelled, Hgb Cancelled, Hct Cancelled , MCV Cancelled, MCH Cancelled, MCHC Cancelled, RDW Cancelled, Plt Count Cancelled, MPV Cancelled 10/11/17 1126: CBC w Diff NO MAN DIFF REQ, RBC 3.62 L, MCV 85.9, MCH 28.2, MCHC 32.8 L, RDW 19.9 H, MPV 8.7, Gran % 83.7 H, Lymphocytes % 7.0 L, Monocytes % 8.9, Eosinophils % 0.1, Basophils % 0.3, Absolute Granulocytes 9.8 H, Absolute Lymphocytes 0.8 L, Absolute Monocytes 1.0 H, Absolute Eosinophils 0, Absolute Basophils 0 10/11/17 0435: Anion Gap 7, Estimated GFR > 60, Glucose 112 H, Calcium 7.4 L, Phosphorus 2.0 L, Magnesium 1.7, Total Bilirubin 1.0, AST 36, ALT 32, Troponin I 2.32 *H, Albumin 2.4 L, CBC w Diff NO MAN DIFF REQ, RBC 3.34 L, MCV 84.6, MCH 28.7, MCHC 34.0, RDW 19.5 H, MPV 8.8, Gran % 82.9 H, Lymphocytes % 8.4 L, Monocytes % 8.5, Eosinophils % 0.1, Basophils % 0.1, Absolute Granulocytes 9.8 H, Absolute Lymphocytes 1.0 L, Absolute Monocytes 1.0 H, Absolute Eosinophils 0, Absolute Basophils 0 Assessment/Plan Assessment/Plan Assessment: 1. Peripheral arterial disease, status post femoropopliteal bypass 2. History of AAA repair 3. Severe anemia secondary to blood loss on anticoagulation. Anemia more likely secondary to surgical blood loss. Recent dark heme-positive stools suggestive of possible recurrent GI bleeding 4. Elevated troponin with mild chest discomfort consistent with non-ST elevation myocardial infarction. Likely type II TN precipitated by severe anemia in the setting of fixed CAD Plan: * Continue aspirin 81 mg daily * Anticoagulation on hold for recent acute bleeding. Would check with vascular surgery regarding plans for long-term anticoagulation * Echocardiogram noted * Will need further workup for ischemia at some point, however cardiac catheterization contraindicated for now given recent unexplained blood loss and severe anemia. * IV Lasix given today for volume overload secondary to transfusions and IV fluids. Will reevaluate need for further doses of Lasix tomorrow * The patient appears to have tolerated the endoscopy without significant issues. Follow-up ECGs, etc., unrevealing. * Continue to monitor for now. Eventual pharmacologic nuclear stress test or invasive evaluation as per Dr. Brooks Continue telemetry? Yes
[2017-10-12 19:15] VITALS: BP 128/58
[2017-10-12 23:01] VITALS: BP 148/80
[2017-10-13 06:53] VITALS: BP 128/64
--- NOTE | 2017-10-13 07:26 | PN- Housestaff ---
Wilma PFEIFFER,Skye 10/13/17 0726: Subjective Follow-up For: #1 acute blood loss anemia most likely multifactorial and related to recent vascular surgery/right femoral hematoma/upper JOSELYN is also a possibility. #2 elevated troponin, associated EKG changes in lateral leads most likely due to demand ischemia given her severe anemia #3 severe emphysema/multiple pulmonary nodules/bilateral pleural effusion right more than left #4 history of hypertension, hyperlipidemia #5 Rt femoral hematoma #6 peripheral arterial disease Complaints: no complaints Subjective: Patient was seen and examined at bedside, she denies any complaints, she is a stable to be discharged to [facility] today after tapering off her oxygen Review of Systems Constitutional: Denies: no symptoms. Objective Last 24 Hrs of Vital Signs/I&O Vital Signs Date Time Temp Pulse Resp B/P B/P Pulse O2 O2 Flow FiO2 Mean Ox Delivery Rate 10/13 1116 52 110/60 98 Nasal 2.0L Cannula 10/13 0848 65 128/64 10/13 0803 Nasal 4.0L Cannula 10/13 0800 97 Nasal 3.0L Cannula 10/13 0653 98.2 62 20 128/64 92 Room Air 10/13 0000 95 Nasal 3.0L Cannula 10/12 2301 98.3 64 20 148/80 92 Room Air 10/12 2053 59 148/80 10/12 1915 54 24 128/58 92 Nasal 3.0L Cannula 10/12 1600 Room Air 10/12 1514 97.3 62 22 112/68 97 Nasal 3.0L Cannula 10/12 1159 94 Nasal 2.0L Cannula Intake & Output 10/13 1600 10/13 0800 10/13 0000 Intake Total 375 Output Total 300 450 Balance -300 -75 Intake, Oral 375 Number 1 Bowel Movements Output, Urine 300 450 Physical Exam General Appearance: Alert, Oriented X3, Cooperative, No Acute Distress HEENT: Atraumatic, PERRLA, EOMI, Mucous Membr. moist/pink Cardiovascular: Normal S1, Normal S2 Lungs: Clear to Auscultation Abdomen: Normal Bowel Sounds, Soft, No Tenderness Extremities: No Clubbing, No Cyanosis, No Edema Current Medications: Current Medications Sig/Rocael Start time Last Medication Dose Route Stop Time Status Admin Acetaminophen 650 MG Q4P PRN 10/11 1200 AC 10/12 PO 0710 Albuterol Sulfate 3 ML EVERY 4 HRS/AWAKE .. 10/09 1430 DC 10/10 INH 0842 Aspirin 81 MG DAILY 10/11 1445 AC 10/13 PO 0847 Atorvastatin Calcium 10 MG QPM 10/09 2100 AC 10/12 PO 2053 Clopidogrel Bisulfate 75 MG DAILY 10/11 1445 AC 10/13 PO 0848 Duloxetine HCl 60 MG DAILY 10/10 0900 AC 10/13 PO 0847 Ferrous Sulfate 325 MG TID 10/11 1504 AC 10/13 PO 0847 Gabapentin 100 MG Q8 10/12 1445 CAN PO Gabapentin 100 MG DAILY PRN 10/12 1445 AC PO Metoprolol Tartrate 6.25 MG BID 10/11 2100 AC 10/13 PO 0848 Omeprazole 40 MG DAILY AC 10/12 0700 AC 10/13 PO 0608 Potassium Chloride 40 MEQ 1245 10/10 1245 AC 10/12 PO 1428 Ropinirole HCl 1 MG QPM 10/09 2100 AC 10/12 PO 1859 Trimethobenzamide HCl 200 MG 4 TIMES/DAY PRN 10/09 1700 AC 10/09 IM 1710 Last 24 Hrs of Lab/Mauricio Results Last 24 Hrs of Labs/Mics: Laboratory Tests 10/13/17 0635: Anion Gap 11, Estimated GFR > 60, Glucose 98, Calcium 8.4, Phosphorus 3.2, Magnesium 1.7, Total Bilirubin 0.7, AST 35, ALT 49, Albumin 2.6 L, CBC w Diff NO MAN DIFF REQ, RBC 3.46 L, MCV 85.4, MCH 28.4, MCHC 33.2, RDW 18.5 H, MPV 9.4, Gran % 73.7, Lymphocytes % 12.3 L, Monocytes % 11.3 H, Eosinophils % 2.1, Basophils % 0.6, Absolute Granulocytes 4.8, Absolute Lymphocytes 0.8 L, Absolute Monocytes 0.7 H, Absolute Eosinophils 0.1, Absolute Basophils 0 Assessment/Plan Assessment: 1 acute blood loss anemia most likely multifactorial and related to recent vascular surgery/right femoral hematoma/upper GI BLEED was also a possibility. Her H&H is a stable Patient will need outpatient colonoscopy Continue iron and multivitamin #2 elevated troponin, associated EKG changes in lateral leads most likely due to demand ischemia given her severe anemia Serial troponin and EKGs were done. Her troponin peaked at 7.41. She remained asymptomatic without any chest pain. Her EKG also showed ST depressions in lateral leads Continue metoprolol 6.25 mg twice daily Continueaspirin and Plavix 3 severe emphysema/multiple pulmonary nodules/bilateral pleural effusion right more than left She was noted to have bilateral pleural effusion which was slightly better after IV diuresis. She has chronic multiple pulmonary nodules and needs to be follow- up as outpatient 4 history of hypertension, hyperlipidemia Patient was continued on statins and beta blockers. She remained hemodynamically stable throughout her ICU course. Continue atorvastatin and metoprolol 6.25 mg #5 Rt femoral hematoma Right lower extremity arterial ultrasound was done which showed patent right lower extremity graft, 6 cm hematoma was also noted at right groin. Vascular surgery was consulted and they thought probably not because of drop in her H&H. Also she was noted to have high WBC count at the beginning and end infection at hematoma site was ruled out given her normal WBC count later without any signs of infection. Her zak were removed on October 11 by surgical PA. #6 peripheral arterial disease She has recent right femoral popliteal bypass. She has severe peripheral vascular disease in her left lower extremity as well and her examination was found to be older than right lower extremity and also have diminished pulses. She needs to be follow-up with vascular surgery as outpatient. On admission she was on Rivaroxiban which was hold initially and later on was changed to Plavix after consulting vascular surgery Continue aspirin and Plavix #Anxiety/depression/panic attacks Patient has history of anxiety and was on Cymbalta. She had a few panic attacks during ICU stay and requested for psych evaluation. She patient was seen by psychiatry - continue gabapentin 100 300 mg 3 times a day as patient tolerated. She is stable to be discharged to [facility] today DNR/DNI Heart healthy diet Problem List: 1. Cardiac ischemia 2. Elevated troponin 3. Upper GI bleed 4. Weakness 5. Anemia Pain Ratin Pain Location: n/a Pain Goal: Remain pain free Pain Plan: pathway Tomorrow's Labs & Rationales: n/a Consulting Request: Consulting Specialty: Cardiology Consulting Physician: Sarahi Ferrera MD Reason for Consult: type II IN Curt PFEIFFER,[facility] 10/13/17 1146: Attending MD Review Statement Attending Statement Attending MD Statement: examined this patient, discuss w/resident/PA/TOOL PROFILING MACHINE SET UP OPERATOR, agreed w/resident/PA/TOOL PROFILING MACHINE SET UP OPERATOR, reviewed EMR data (avail) Attending Assessment/Plan: 76F PMH peripheral arterial disease, previous AAA repair, hypertension, hyperlipidemia, depression, irritable bowel syndrome, status post right femoral- popliteal bypass w/ PTFE 09/25/2017 on Riveroxaban (abdominal aortic repair), COPD admitted initially to ICU with complains of weakness and lethargy, found to have Hgb 4.8, received 3 units pRBC with now stable Hgb, with right groin 6cm hematoma, dark stools s/p EGD on 10/11 showing small non-bleeding AVM, with course complicated by hypervolemia s/p diuresis with IV Lasix, with troponin elevated to 7 but now coming down. Echocardiogram normal. Patient is doing well today and has no complaints. Her Hgb is stable. 1. Acute blood loss anemia 2. Hypervolemia 3. Right groin hematoma 4. PAD s/p right femoral-popliteal bypass 5. Type 2 myocardial infarction Plan - Pending discussion with cardiology and vascular, likely stable for discharge to [facility] - Monitor CBC as outpatient - Outpatient colonoscopy and stress test - Per vascular, ASA and Plavix on discharge, will discontinue Xarelto - Continue remaining home medications - Outpatient follow up with vascular surgery, GI and cardiology
--- NOTE | 2017-10-13 07:46 | PN- Cardiology ---
Subjective Subjective: Cardiac status stable and unchanged. No new cardiac symptoms Objective Vital Signs and I&Os Vital Signs Date Time Temp Pulse Resp B/P B/P Pulse O2 O2 Flow FiO2 Mean Ox Delivery Rate 10/13 0653 98.2 62 20 128/64 92 Room Air 10/13 0000 95 Nasal 3.0L Cannula 10/12 2301 98.3 64 20 148/80 92 Room Air 10/12 2053 59 148/80 10/12 1915 54 24 128/58 92 Nasal 3.0L Cannula 10/12 1600 Room Air 10/12 1514 97.3 62 22 112/68 97 Nasal 3.0L Cannula 10/12 1159 94 Nasal 2.0L Cannula 10/12 1107 63 110/50 10/12 0800 96 Nasal 2.0L Cannula 10/12 0800 98.4 60 20 122/60 96 Nasal 2.0L Cannula Intake & Output 10/13 0800 10/13 0000 10/12 1600 10/12 0800 10/12 0000 10/11 1600 Intake Total 375 400 120 120 370 Output Total 300 450 350 450 0 950 Balance -300 -75 50 -330 120 -580 Intake, IV 0 0 270 Intake, Oral 375 400 120 120 100 Number 1 1 0 2 Bowel Movements Output, Urine 300 450 350 450 0 950 Patient 110 lb Weight Physical Exam: General Appearance: alert, awake, anxious Head: atraumatic, normal appearance Neck: supple, JVP normal, carotids normal bilaterally Respiratory: chest non-tender, accessory muscle use, crackles, respiratory distress Cardiovascular: regular rate/rhythm, 1/6 systolic murmur left sternal border Abdomen: soft, non-tender, no organomegaly Extremities: normal inspection, cool left lower extremity with diminished pulses. Skin: normal healing wound on right lower extremity calf and right groin, status post femoropopliteal bypass. No obvious wheezing or discharge. Slight erythema but nontender. Current Medications: Current Medications Sig/Rocael Start time Last Medication Dose Route Stop Time Status Admin Acetaminophen 650 MG Q4P PRN 10/11 1200 AC 10/12 PO 0710 Albuterol Sulfate 3 ML EVERY 4 HRS/AWAKE .. 10/09 1430 DC 10/10 INH 0842 Aspirin 81 MG DAILY 10/11 1445 AC 10/12 PO 1054 Atorvastatin Calcium 10 MG QPM 10/09 2100 AC 10/12 PO 2052 Clopidogrel Bisulfate 75 MG DAILY 10/11 1445 AC 10/12 PO 1055 Duloxetine HCl 60 MG DAILY 10/10 0900 AC 10/12 PO 105 Ferrous Sulfate 325 MG TID 10/11 1504 AC 10/12 PO 2052 Gabapentin 100 MG Q8 10/12 1445 CAN PO Gabapentin 100 MG DAILY PRN 10/12 1445 AC PO Magnesium Chloride 64 MG ONCE ONE 10/12 0800 DC 10/12 PO 10/12 0801 1058 Metoprolol Tartrate 6.25 MG BID 10/11 2100 AC 10/12 PO 205 Omeprazole 40 MG DAILY AC 10/12 0700 AC 10/13 PO 0608 Phosphate 250 MG ONCE ONE 10/12 0800 DC 10/12 PO 10/12 0801 1054 Potassium Chloride 60 MEQ ONCE ONE 10/12 0800 DC 10/12 PO 10/12 0801 1055 Potassium Chloride 40 MEQ 1245 10/10 1245 AC 10/12 PO 1428 Ropinirole HCl 1 MG QPM 10/09 2100 AC 10/12 PO 1859 Trimethobenzamide HCl 200 MG 4 TIMES/DAY PRN 10/09 1700 AC 10/09 IM 1710 Results Last 48 Hrs of Labs/Mics: Laboratory Tests 10/13/17 0635: Sodium Pending, Potassium Pending, Chloride Pending, Carbon Dioxide Pending, Anion Gap Pending, BUN Pending, Creatinine Pending, Glucose Pending, Calcium Pending, Phosphorus Pending, Magnesium Pending, Total Bilirubin Pending, AST Pending, ALT Pending, Albumin Pending, CBC w Diff Pending, WBC Pending, RBC Pending, Hgb Pending, Hct Pending, MCV Pending, MCH Pending, MCHC Pending, RDW Pending, Plt Count Pending, MPV Pending 10/12/17 0545: Anion Gap 8, Estimated GFR > 60, Glucose 107 H, Calcium 7.7 L, Phosphorus 2.8, Magnesium 1.8, Total Bilirubin 0.9, AST 39 H, ALT 42, Albumin 2.5 L, TSH 3.670 , Free T4 1.63, Total T3 0.84 L, CBC w Diff NO MAN DIFF REQ, RBC 3.38 L, MCV 85.4, MCH 28.4, MCHC 33.2, RDW 19.1 H, MPV 9.2, Gran % 75.7 H, Lymphocytes % 12.1 L, Monocytes % 11.1 H, Eosinophils % 0.7, Basophils % 0.4, Absolute Granulocytes 5.6, Absolute Lymphocytes 0.9 L, Absolute Monocytes 0.8 H, Absolute Eosinophils 0.1, Absolute Basophils 0 10/11/17 2050: Troponin I 1.83 *H 10/11/17 1456: Troponin I 2.07 *H 10/11/17 1200: CBC w Diff Cancelled, WBC Cancelled, RBC Cancelled, Hgb Cancelled, Hct Cancelled , MCV Cancelled, MCH Cancelled, MCHC Cancelled, RDW Cancelled, Plt Count Cancelled, MPV Cancelled 10/11/17 1126: CBC w Diff NO MAN DIFF REQ, RBC 3.62 L, MCV 85.9, MCH 28.2, MCHC 32.8 L, RDW 19.9 H, MPV 8.7, Gran % 83.7 H, Lymphocytes % 7.0 L, Monocytes % 8.9, Eosinophils % 0.1, Basophils % 0.3, Absolute Granulocytes 9.8 H, Absolute Lymphocytes 0.8 L, Absolute Monocytes 1.0 H, Absolute Eosinophils 0, Absolute Basophils 0 Assessment/Plan Assessment/Plan Assessment: 1. Peripheral arterial disease, status post femoropopliteal bypass 2. History of AAA repair 3. Severe anemia secondary to blood loss on anticoagulation. Anemia more likely secondary to surgical blood loss. Recent dark heme-positive stools suggestive of possible recurrent GI bleeding 4. Elevated troponin with mild chest discomfort consistent with non-ST elevation myocardial infarction. Likely type II OH precipitated by severe anemia in the setting of fixed CAD Plan: * Continue aspirin 81 mg daily * Anticoagulation on hold for recent acute bleeding. Would check with vascular surgery regarding plans for long-term anticoagulation * Echocardiogram noted * Will need further workup for ischemia at some point, however cardiac catheterization contraindicated for now given recent unexplained blood loss and severe anemia. * IV Lasix given today for volume overload secondary to transfusions and IV fluids. Will reevaluate need for further doses of Lasix tomorrow * The patient appears to have tolerated the endoscopy without significant issues. Follow-up ECGs, etc., unrevealing. * Continue to monitor for now. Eventual pharmacologic nuclear stress test or invasive evaluation as per Dr. Brooks. Patient pending discharge to short- term rehab Continue telemetry? No
[2017-10-13 08:05] LABS: ABSOLUTE BASOPHIL COUNT 0 /CUMM (0.0-0.2); ABSOLUTE EOSINOPHIL COUNT 0.1 /CUMM (0.0-0.7); ABSOLUTE GRANULOCYTE CT 4.8 /CUMM (1.4-6.5); ABSOLUTE LYMPH COUNT 0.8 /CUMM (1.2-3.4); ABSOLUTE MONOCYTE COUNT 0.7 /CUMM (0.10-0.60); BASOPHIL % 0.6 % (0.0-2.0); EOSINOPHIL % 2.1 % (0-5); GRANULOCYTE % 73.7 % (42.2-75.2); HEMATOCRIT 29.5 % (37-47); MEAN CORPUSCULAR HGB 28.4 PG (27.0-31.0); MEAN CORPUSCULAR HGB CONC 33.2 G/DL (33.0-37.0); MEAN CORPUSCULAR VOLUME 85.4 FL (81.0-99.0); MEAN PLATELET VOLUME 9.4 FL (7.4-10.4); PLATELET COUNT 269 /CUMM (130-400); RBC DISTRIBUTION WIDTH 18.5 % (11.5-14.5); RED BLOOD CELL CT 3.46 /CUMM (4.20-5.40); WHITE BLOOD CELL COUNT 6.5 /CUMM (4.8-10.8)
[2017-10-13 11:16] VITALS: BP 110/60
--- NOTE | 2017-10-13 11:22 | Patient Discharge Instructions ---
Discharge Instructions General Discharge Information You were seen/treated for: #1 acute blood loss anemia most likely multifactorial and related to recent vascular surgery/right femoral hematoma/upper JOSELYN is also a possibility. #2 elevated troponin, associated EKG changes in lateral leads most likely due to demand ischemia given her severe anemia #3 severe emphysema/multiple pulmonary nodules/bilateral pleural effusion right more than left #4 history of hypertension, hyperlipidemia #5 Rt femoral hematoma #6 peripheral arterial disease Special Instructions: 1-please follow-up with your PCP in 1 week of discharge 2please follow-up with your vascular surgery in 1 week of discharge 3please follow-up with your communications department chair in 1 week of discharge 4-Please get an appointment at [facility] outpatient psychiatry at [address] [place], [place] [id number]. [place] [id number], [phone] 5-Please follow up with gastroentrology in 1 week of discharge Diet Continue normal diet: No Recommended Diet: Heart Healthy Activity Additional ACTIVITY Info: as tolerated Acute Coronary Syndrome Inclusion Criteria At DC or during hospital stay patient has or had the following: ACS DIAGNOSIS No Discharge Core Measures Meds if any: Prescribed or Continued at Discharge Meds if any: NOT Prescribed or Continued at Discharge Congestive Heart Failure Inclusion Criteria At DC or during hospital stay patient has or had the following: CHF DIAGNOSIS No Discharge Core Measures Meds if any: Prescribed or Continued at Discharge Meds if any: NOT Prescribed or Continued at Discharge Cerebrovascular accident Inclusion Criteria At DC or during hospital stay patient has or had the following: CVA/TIA Diagnosis No Discharge Core Measures Meds if any: Prescribed or Continued at Discharge Meds if any: NOT Prescribed or Continued at Discharge Venous thromboembolism Inclusion Criteria VTE Diagnosis No VTE Type NONE VTE Confirmed by (Test) NONE Discharge Core Measures - Per Current guidelines, there needs to be overlap - treatment for the first 5 days of Warfarin therapy. - If discharged on Warfarin prior to 5 days of - overlap therapy, the patient will need to be - assessed for post discharge needs including - *Post discharge parental anticoagulation - *Warfarin and/or parental anticoagulation education - *Follow up date to check INR post discharge At least 5 days overlap therapy as Inpatient No Meds if any: Prescribed or Continued at Discharge Note: Overlap Therapy is Warfarin and Anticoagulant Meds if any: NOT Prescribed or Continued at Discharge
[2017-10-13] MEDS ORDERED: PLAVIX75 M1 PO (11:24)
[2017-10-13] MEDS ORDERED: FERROUS SULFAT325 M2 PO (11:47)
[2017-10-13] MEDS ORDERED: GABAPENTIN100 M2 PO ×2 (11:47→13:15)
[2017-10-13] MEDS ORDERED: OMEPRAZOLE20 M2 PO (11:47)
[2017-10-13] MEDS ORDERED: METOPROLOL TART25 M1 PO (11:50)
[2017-10-13 12:11] VITALS: BP 110/60
== END 2017-10-13 13:20 | DRG 377 ==
LOC: ERH 06:06 → ERHI 08:53 → CRI 08:53 → ENRESERV 09:53 → ENTRNSPT 10:13 → EDTRNSPTSTS 10:33 → EDTRNSPT 10:33 → CRI 10:39 → CMPTRNSPT 10:54 → CRI 13:54 → ENTRNSPT 10-12 14:27 → EDTRNSPTSTS 10-12 14:37 → EDTRNSPT 10-12 14:37 → 1NO 10-12 14:54 → CMPTRNSPT 10-12 15:04 → 1NO 10-13 07:49 → ENPENDDIS 10-13 12:12 → 1NO 10-13 13:20
PROVIDERS: Hospitalist; Internal Medicine; Internal Medicine Endocrinology, Diabetes & Metabolism; Pediatrics
PROC: 30233N1 Transfusion of Nonautologous Red Blood Cells into Peripheral Vein, Percutaneous Approach (ICD-10-PCS; principal; 2017-10-09)
DX: K92.2 Gastrointestinal hemorrhage, unspecified (principal); I21.A1 Myocardial infarction type 2; I95.9 Hypotension, unspecified; J44.9 Chronic obstructive pulmonary disease, unspecified; J90 Pleural effusion, not elsewhere classified; D62 Acute posthemorrhagic anemia; I73.9 Peripheral vascular disease, unspecified; I97.621 Postprocedural hematoma of a circulatory system organ or structure following other procedure; Q27.33 Arteriovenous malformation of digestive system vessel; I10 Essential (primary) hypertension; E78.5 Hyperlipidemia, unspecified; F32.9 Major depressive disorder, single episode, unspecified; Z87.891 Personal history of nicotine dependence; K58.9 Irritable bowel syndrome, unspecified; M81.0 Age-related osteoporosis without current pathological fracture; Z90.5 Acquired absence of kidney; Z66 Do not resuscitate
CPT/HCPCS: 1NSP; CCU; 36415; 36592; 71045; 74176; 81001; 82436; 86920; 87040; 87086; 93005; 93010; 93306; 93925; 96361; 96365; 96366; 96375; 97110-GO; 97116-GO; 97161-GP; 97530-GO; 99232; 99291; J0713; J1940; J3250; J3370; J3490; P9016